=== PATIENT | female | born 1970 | race Caucasian/White ===

== ENCOUNTER 2017-12-26 11:00 | Observation (INO) | payer MEDICAID, SELFPAY ==
--- NOTE | 2017-12-23 11:44 | EKG12_ITS ---
Test Reason : PRE OP Blood Pressure : / mmHG Vent. Rate : 091 BPM Atrial Rate : 091 BPM P-R Int : 164 ms QRS Dur : 080 ms QT Int : 368 ms P-R-T Axes : 056 -15 030 degrees QTc Int : 452 ms Normal sinus rhythm Cannot rule out Anterior infarct , age undetermined Inferior NC, age undetermined, cannot be excluded Abnormal ECG Confirmed by TIMOTHY HARRELL ([id number]), website/blog editor BRINA CUNNINGHAM ([id number]) on 12/24/2017 9:43:17 AM Referred By: Noe Motley Confirmed By:TIMOTHY HARRELL
[2017-12-23 12:31] LABS: Hematocrit 46.2 % (37-47); Hemoglobin 15.9 g/dl (12.0-15.0); Mean Corp Hgb Conc 34.4 g/gl (32-36); Mean Corpuscular Volume 84.3 fL (81-99); Mean Platelet Vol. 11.2 fl (6.2-12.0); Platelet Count 325 K/mm3 (150-450); RBC Distribution Width CV 13.5 % (11.6-14.6); RBC Distribution Width SD 41.5 fl (35.1-43.9); Red Blood Count 5.48 M/mm3 (4.2-5.4); White Blood Count 8.4 K/mm3 (4.4-11.0)
[2017-12-23 12:34] LABS: Scan Indicated on CBC? Y/N NO
[2017-12-23 12:52] LABS: Anion Gap 7 (5-15); BUN 7 mg/dL (7-18); BUN/Creat Ratio 8.2 RATIO (10-20); Calcium,Total 8.9 mg/dL (8.5-10.1); Chloride 103 mmol/L (98-107); Creatinine, Serum 0.85 mg/dL (0.55-1.02); EST Glomerular Filtration Rate 76 mL/min (>60); Est Glom Filt Rate - Afr Amer 92 mL/min (>60); Glucose 177 mg/dL (74-106); Potassium 3.7 mmol/L (3.5-5.1); Sodium Level 138 mmol/L (136-145)
[2017-12-26] VITALS (13 sets, daily range): BP systolic 114–160; BP diastolic 70–110; PULSE 75–99; RESP 14–18; TEMP 36.2–37; O2SAT 93–99; BMI 40.6
--- NOTE | 2017-12-26 | THYROID_PTH ---
PATIENT: YIFAN NICHOLE LOC: MS3 U#:[id number] AGE/SX: 47/F ROOM: [facility] RE12/26/[address]: Dr. Noe Motley MD : 1970 BED: 1 DIS: 12/27/2017 SPEC #: [id number] RECD: 12/26/17 10:12 STATUS: KENNY LYNNE #: [id number] MARIBELL: 12/26/17 00:[address]: Noe Motley DEPT: SURGICAL PATHOLOGY RECD BY: Shahla Mcnamara ENTERED: 12/26/17 10:48 SP TYPE: THYROID OTHR DR: Out of [facility] Doctor Tissues: Thyroid gland, NOS Procedures: Frozen Section (charge) Frozen Section Add'l ([facility]) Surgery Specimen Level V Frozen (no charge) HEADER OPERATION: Thyroidectomy PRE-OP DIAGNOSIS: Multinodular goiter, dysphagia secondary to compression from thyroid TISSUE SUBMITTED: Thyroid FROZEN SECTION DIAGNOSIS Thyroid, total thyroidectomy: Multinodular goiter, larger nodule in the right lobe, cystic nodule. 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 Right thyroid lobe, cystic colloid nodule (4 cm in greatest dimension). Multinodular goiter with focal adenomatoid nodules. Four out of four lymph node, negative for metastatic carcinoma. Unremarkable parathyroid tissue. See cancer summary in the comment section. SJ:diego 12/30/17 COMMENT THYROID CANCER SUMMARY: Procedure ? total thyroidectomy Received - fresh Specimen integrity ? in two pieces Specimen size ? right lobe 5 x 4 x 4 cm, left lobe 6 x 4 x 1.5 cm, isthmus 3.5 x 2.5 x 1 cm Specimen weight ? 37.3 gm Tumor focality - unifocal Tumor laterality ? left lobe Tumor size ? 0.2 x 0.2 cm (measured microscopically) Histologic type ? papillary carcinoma Variant - Microcarcinoma Architecture ? follicular Cytomorphology - classical Margins ? margin uninvolved by invasive carcinoma. The tumor is<0.1 cm away from the closest anterior margin. Tumor capsule ? none identified Tumor capsular invasion ? not applicable Lymph-Vascular invasion ? not identified Perineural invasion ? not seen Extrathyroidal extension ? not seen Regional lymph nodes: Number of lymph nodes examined - 4 Number involved - 0 Distant metastasis ? not applicable Additional pathologic findings ? - multinodular goiter with adenomatoid nodules - right thyroid lobe cystic colloid nodule (4 cm in greatest dimension). - unremarkable parathyroid tissue (slide # 5, 11 &, 15). Ancillary studies ? please see IHC ([id number]) Clinical history ? multinodular goiter PATHOLOGIC STAGE: pT1a pN0 Mx The above summary is in compliance with [employer] (CAP) Cancer Protocols Checklist and [place] Joint Committee on Cancer (AJCC), Staging Manual, 7th Ed. Immunohistochemistry ([id number]) supports the above diagnosis. This case is discussed with Dr. Motley on12/30/17. MICROSCOPIC DESCRIPTION Slides are reviewed. GROSS DESCRIPTION Received fresh for frozen section diagnosis labeled with the patient's name is a specimen designated thyroid. The specimen consists of a total thyroidectomy specimen weighing 37.3 gm and consists of right lobe and isthmus and separate left lobe. The right lobe measures 5 x 4 x 4 cm, isthmus measures 3.5 x 2.5 x 1 cm, and left lobe measures 6 x 4 x 1.5 cm. The right lobe shows a nodule measuring 4 x 3.5 x 3 cm. No external parathyroid tissue is identified. The specimen is inked as follows: right lobe anterior surface ? green, left lobe anterior surface ? blue, isthmus anterior surface ? yellow, posterior surface of right lobe, left lobe and isthmus black. Serial sections of the right lobe reveal the nodule consists of entirely cystic in nature and filled with hemorrhagic fluid. Sections of the left lobe reveal a nodule measuring 0.5 cm in greatest dimension. Sections of the isthmus do not reveal any obvious mass lesion. Fish Peddler sections from right lobe cystic nodule and left lobe nodule are submitted for frozen section diagnosis. Fish Peddler sections are submitted as follows: 1 ? frozen section, smaller nodule in the left lobe, 2 ? frozen section, largest cystic nodule in the right lobe, 3-5 ? right lobe (entirely submitted), 6?&?7 ? isthmus, 812 ? left lobe. / SJ: 12/26/17 The rest of the specimen is submitted in seven more cassettes as follows: 13-15 ? isthmus, 1619 ? left lobe. / SJ: 12/29/17 TC:0 CPT: 47731, 86471, 93348
--- NOTE | 2017-12-26 | IMM_PTH ---
PATIENT: YIFAN NICHOLE LOC: MS3 U#:[id number] AGE/SX: 47/F ROOM: [facility] [place] RE12/26/[address]: Dr. Noe Motley MD : 1970 BED: 1 DIS: 12/27/2017 SPEC #: [id number] RECD: 12/29/17 13:35 STATUS: KENNY REQ #: [id number] MARIBELL: 12/26/17 00:[address]: Noe Motley DEPT: IMMUNOHISTOCHEMISTRY RECD BY: Shahla Mcnamara ENTERED: 12/29/17 13:37 SP TYPE: IMMUNO OTHR DR: Out of [facility] Doctor Tissues: Thyroid gland, NOS Procedures: CK19 (initial) CD56 (add) GAL-3 (add) HBME (add) PHYSICIAN & INSTITUTION [place] [phone] SPECIMEN INFORMATION: Tissue Source: Thyroid Clinical Info: Multinodular goiter, dysphagia secondary to compression from thyroid Specimen Number: [id number] #9 CPT code: 84472, 61328 x3 METHODOLOGY: Deparaffinized sections of prefer/formalin-fixed tissue or PAP/DQ stained slides are incubated with monoclonal/polyclonal antibodies/oligonucleotide probes. Localization is made via biotin free immunoperoxidase method. Appropriate controls are performed and reacted as expected. Results on target cell population are indicated in the following table: RESULTS: ANTIBODY / CLONE RESULT Block 9 CK19 (A53-B/A2.26) positive CD56 (123C3.D5) negative HBME1 (HBME-1) positive GAL3 (9C4) positive These tests were developed and their performance characteristics determined by [facility]. They may not have been cleared or approved by the U.S. Food and Drug Administration. The FDA has determined that such clearance or approval is not necessary. INTERPRETATION: Thyroid, total thyroidectomy: Consistent with papillary thyroid microcarcinoma. YVES:diego 12/30/17
[2017-12-26 05:52] LABS: Internal QC Validated? YES +Cl - CLEAR BKGD; Pregnancy, Urine Negative Negative
[2017-12-26 06:11] LABS: Bedside Glucose 129 mg/dL (70-110)
--- NOTE | 2017-12-26 10:35 | PCM.OPRPT ---
Problem List (1) Multinodular goiter Status: Chronic Report of Operation Date of Procedure: 12/26/17 Pre-Operative Diagnosis: Multinodular goiter Post-Operative Diagnosis: same Surgery/Procedure Performed:: Total thyroidectomy Description of Surgical Findings:: Procedure went as follows: The patient was identified in the preoperative holding and brought to the operating room, placed under general anesthesia and intubated. The neck was then prepped and draped in usual sterile fashion and the planned skin incision was marked 2 finger breadths above the sternal notch with a marking pen. The incisional line was then injected with 1% lidocaine with 100,000 epinephrine for a total of 6 cc. After allowing for vasoconstriction, a 15 blade scalpel was used to make an incision 8 cm in length through the skin and subcutaneous tissues and platysma. A subplatysmal flap was then elevated superiorly and inferiorly to allow placement of the self-retaining thyroid retractor. The strap muscles were then divided in the midline and beginning on the left side the thyroid lobe dissected in a sub-capsular fashion. The inferior, middle, and superior thyroid vessels were individually clamped and ligated with a combination of 3-0 silk sutures and vascular clips. The parathyroid glands were identified along the inferior vascular pedicle and preserved the recurrent laryngeal nerve was also identified and followed to its nerve entry point and the thyroid gland dissected free of its attachments to the trachea at Broyle's ligament. This was then transected at the isthmus and sent for pathologic evaluation. The right lobe was then similarly dissected free and sent as specimen. The recurrent laryngeal nerve as then stimulated bilaterally and function confirmed. #7 flat ZEENAT drains were then placed through separate stab incisions and secured with 3-4 silk sutures. The strap muscles were then reapproximated in the midline with a running 3-0 Vicryl suture and the platysma and subcutaneous tinnue closed with interrupted sutures. A running subcuticular stitch of 5-0 Monocryl was then used to close the skin followed by steri-strips. Type of Anesthesia:: General Anesthesiologist: Lang Paiz Special Medications: none Specimen's removed: total thyroid Drains: #7 flat ZEENAT Estimated Blood Loss (mL): 50 mL Fluids Replaced: 1000 mL Grafts/Implants Used: none - Complications none - Admit VTE Documentation VTE Present on Admission: No VTE Mechan Device Prophylaxis: SCD's VTE Pharm Prophylaxis ordered?: No
--- NOTE | 2017-12-26 10:43 | OP.PCM_ITS ---
Problem List (1) Multinodular goiter Status: Chronic Report of Operation Date of Procedure: 12/26/17 Pre-Operative Diagnosis: Multinodular goiter Post-Operative Diagnosis: same Surgery/Procedure Performed:: Total thyroidectomy Description of Surgical Findings:: Procedure went as follows: The patient was identified in the preoperative holding and brought to the operating room, placed under general anesthesia and intubated. The neck was then prepped and draped in usual sterile fashion and the planned skin incision was marked 2 finger breadths above the sternal notch with a marking pen. The incisional line was then injected with 1% lidocaine with 100,000 epinephrine for a total of 6 cc. After allowing for vasoconstriction, a 15 blade scalpel was used to make an incision 8 cm in length through the skin and subcutaneous tissues and platysma. A subplatysmal flap was then elevated superiorly and inferiorly to allow placement of the self- retaining thyroid retractor. The strap muscles were then divided in the midline and beginning on the left side the thyroid lobe dissected in a sub- capsular fashion. The inferior, middle, and superior thyroid vessels were individually clamped and ligated with a combination of 3-0 silk sutures and vascular clips. The parathyroid glands were identified along the inferior vascular pedicle and preserved the recurrent laryngeal nerve was also identified and followed to its nerve entry point and the thyroid gland dissected free of its attachments to the trachea at Broyle's ligament. This was then transected at the isthmus and sent for pathologic evaluation. The right lobe was then similarly dissected free and sent as specimen. The recurrent laryngeal nerve as then stimulated bilaterally and function confirmed. #7 flat ZEENAT drains were then placed through separate stab incisions and secured with 3-4 silk sutures. The strap muscles were then reapproximated in the midline with a running 3-0 Vicryl suture and the platysma and subcutaneous tinnue closed with interrupted sutures. A running subcuticular stitch of 5-0 Monocryl was then used to close the skin followed by steri-strips. Type of Anesthesia:: General Anesthesiologist: Lang Paiz Special Medications: none Specimen's removed: total thyroid Drains: #7 flat ZEENAT Estimated Blood Loss (mL): 50 mL Fluids Replaced: 1000 mL Grafts/Implants Used: none - Complications none - Admit VTE Documentation VTE Present on Admission: No VTE Mechan Device Prophylaxis: SCD's VTE Pharm Prophylaxis ordered?: No
[2017-12-26 10:55] LABS: Bedside Glucose 132 mg/dL (70-110)
[2017-12-26 11:17] LABS: Calcium,Total 8.6 mg/dL (8.5-10.1)
[2017-12-26] MEDS: Ibuprofen 400 MG Tablet PO ×3 (12:20→21:48)
[2017-12-26 13:01] LABS: Bedside Glucose 170 mg/dL (70-110)
[2017-12-26] MEDS: HYDROcodone Bitartrate/Apap 5/325 Tablet PO ×2 (14:32→20:35)
[2017-12-26] MEDS: Montelukast 10 MG Tablet PO (16:30)
[2017-12-26] MEDS: Folic Acid 1 MG Tablet PO (16:31)
[2017-12-26] MEDS: Gabapentin 300 MG Capsule PO (16:31)
[2017-12-26] MEDS: busPIRone 15 MG TABLET PO (16:31)
[2017-12-26] MEDS: Venlafaxine XR 75 MG Capsule PO (16:31)
[2017-12-26 17:00] LABS: Bedside Glucose 302 mg/dL (70-110)
[2017-12-26] MEDS: Budesonide Respules 0.5 MG/2 ML AMPUL.NEB. INHALATION (19:35)
[2017-12-26] MEDS: Albuterol 2.5 MG/3 ML VIAL.NEB. INHALATION (19:35)
[2017-12-26] MEDS: clonazePAM 1 MG Tablet 2 MG PO (21:48)
[2017-12-26] MEDS: Atorvastatin Calcium 10 MG Tablet 5 MG PO (21:48)
[2017-12-26] MEDS: Lisinopril 2.5 MG Tablet PO (21:49)
[2017-12-27] MEDS: Acetaminophen 325 MG Tablet 650 MG PO (00:13)
[2017-12-27] MEDS: 0.9% NaCl Peripheral Flush Adult/Peds IV (00:14)
[2017-12-27 00:30] LABS: Bedside Glucose 232 mg/dL (70-110)
[2017-12-27 02:30] VITALS: BP 129/77; PULSE 75; RESP 18; TEMP 36.4; O2SAT 96
[2017-12-27] MEDS: HYDROcodone Bitartrate/Apap 5/325 Tablet PO (02:47)
[2017-12-27 02:55] VITALS: PULSE 75
[2017-12-27 06:51] VITALS: PULSE 86; RESP 18; O2SAT 94
[2017-12-27] MEDS: Budesonide Respules 0.5 MG/2 ML AMPUL.NEB. INHALATION (06:51)
[2017-12-27] MEDS: Albuterol 2.5 MG/3 ML VIAL.NEB. INHALATION (06:51)
[2017-12-27] MEDS: Gabapentin 300 MG Capsule PO (07:28)
[2017-12-27] MEDS: Ibuprofen 400 MG Tablet PO (07:28)
[2017-12-27] MEDS: Folic Acid 1 MG Tablet PO (07:28)
[2017-12-27 07:31] LABS: Bedside Glucose 143 mg/dL (70-110)
[2017-12-27 08:56] LABS: Calcium,Total 7.8 mg/dL (8.5-10.1)
--- NOTE | 2017-12-27 09:39 | PCM.DC ---
- Discharge Diagnoses Current Active Problems: Current Active and Chronic Problems Multinodular goiter (Chronic) You will use the following diet at home:: Calorie/Carbohydrate Controlled (specify 1200, 1400, etc) - 2000 calorie Your food should be the consistency of: Regular Discharge Activity: Return to Normal Activity, May Shower Call your doctor if your incision/area has: Increased Redness, Swelling at the incision site Call your doctor if you observe: Fever of 101 or Higher, Uncontrolled pain Suture Line Care: Avoid Pulling/Pushing Cleanse incision/area with: Soap & Water Allergies/Adverse Reactions: Allergies sitagliptin [From Januvia] Allergy (Verified 12/18/17 13:05) Angioedema Sulfa (Sulfonamide Antibiotics) Allergy (Verified 12/26/17 12:01) Hives sulfamethoxazole [From Bactrim] Allergy (Verified 12/18/17 13:05) Hives trimethoprim [From Bactrim] Allergy (Verified 12/18/17 13:05) Hives Medications to take at Discharge Albuterol Inhaler [Ventolin Hfa] 1 - 2 puff INHALATION Q6H PRN PRN 12/18/17 Clonazepam [Klonopin] 2 mg PO BID 12/18/17 Desvenlafaxine Succinate [Desvenlafaxine Succinate ER] 100 mg PO DAILY 12/18/17 Dulaglutide [Trulicity] 0.75 mg SQ QWEEK 12/18/17 Fluticasone/Vilanterol [Breo Ellipta 200-25 Mcg INH] 1 puff INHALATION DAILY 12/18/17 Folic Acid 1 mg PO DAILY@0800 12/18/17 Gabapentin [Neurontin] 300 mg PO TID 12/18/17 Ibuprofen 800 mg PO PRN PRN 12/18/17 Insulin Aspart [Novolog Flexpen] See Protocol SC TIDCM 12/18/17 Insulin Glargine,Hum.rec.anlog [Basaglar Kwikpen U-100] 70 unit SQ QHS 12/18/17 Ketotifen Fumarate 1 drop EACH EYE PRN PRN 12/18/17 Lisinopril [Zestril] 2.5 mg PO QHS 12/18/17 Montelukast [Singulair] 10 mg PO DAILY 12/18/17 Ondansetron HCl [Zofran] 8 mg PO PRN PRN 12/18/17 Ranitidine [Zantac] 150 mg PO DAILY 12/18/17 Simvastatin [Zocor] 10 mg PO QHS 12/18/17 busPIRone [Buspar] 15 mg PO DAILY 12/18/17 Primary Care Physician: Shailesh Doctor,Out of [Primary Care Provider] - Please Follow Up With: Noe Motley MD When: 2 weeks
--- NOTE | 2017-12-27 09:43 | DCINST_ITS ---
- Discharge Diagnoses Current Active Problems: Current Active and Chronic Problems Multinodular goiter (Chronic) You will use the following diet at home:: Calorie/Carbohydrate Controlled ( specify 1200, 1400, etc) - 2000 calorie Your food should be the consistency of: Regular Discharge Activity: Return to Normal Activity, May Shower Call your doctor if your incision/area has: Increased Redness, Swelling at the incision site Call your doctor if you observe: Fever of 101 or Higher, Uncontrolled pain Suture Line Care: Avoid Pulling/Pushing Cleanse incision/area with: Soap & Water Allergies/Adverse Reactions: Allergies sitagliptin [From Januvia] Allergy (Verified 12/18/17 13:05) Angioedema Sulfa (Sulfonamide Antibiotics) Allergy (Verified 12/26/17 12:01) Hives sulfamethoxazole [From Bactrim] Allergy (Verified 12/18/17 13:05) Hives trimethoprim [From Bactrim] Allergy (Verified 12/18/17 13:05) Hives Medications to take at Discharge Albuterol Inhaler [Ventolin Hfa] 1 - 2 puff INHALATION Q6H PRN PRN 12/18/17 Clonazepam [Klonopin] 2 mg PO BID 12/18/17 Desvenlafaxine Succinate [Desvenlafaxine Succinate ER] 100 mg PO DAILY 12/18/17 Dulaglutide [Trulicity] 0.75 mg SQ QWEEK 12/18/17 Fluticasone/Vilanterol [Breo Ellipta 200-25 Mcg INH] 1 puff INHALATION DAILY Folic Acid 1 mg PO DAILY@0800 12/18/17 Gabapentin [Neurontin] 300 mg PO TID 12/18/17 Ibuprofen 800 mg PO PRN PRN 12/18/17 Insulin Aspart [Novolog Flexpen] See Protocol SC TIDCM 12/18/17 Insulin Glargine,Hum.rec.anlog [Basaglar Kwikpen U-100] 70 unit SQ QHS 12/18/17 Ketotifen Fumarate 1 drop EACH EYE PRN PRN 12/18/17 Lisinopril [Zestril] 2.5 mg PO QHS 12/18/17 Montelukast [Singulair] 10 mg PO DAILY 12/18/17 Ondansetron HCl [Zofran] 8 mg PO PRN PRN 12/18/17 Ranitidine [Zantac] 150 mg PO DAILY 12/18/17 Simvastatin [Zocor] 10 mg PO QHS 12/18/17 busPIRone [Buspar] 15 mg PO DAILY 12/18/17 Primary Care Physician: Shailesh Doctor,Out of [Primary Care Provider] - Please Follow Up With: Noe Motley MD When: 2 weeks
--- NOTE | 2017-12-27 09:47 | PN.SURG_ITS ---
Subjective: Machelle reports that she is feeling well this morning and denies any perioral numbness or tingling muscle cramping or tightness. She does report sore throat which is improved since yesterday and responding well to the [place]. She reports that her swallowing is much improved and feels relief from removal of her large nodular goiter. Objective: She appears well this morning is alert and cooperative with normal voicing. There is no wheezing or stridor. Neck incision is clean and intact with minimal drain output. Drains removed at the bedside. - Physical Exam General: Alert, Oriented x3 HEENT: Atraumatic, Normocephalic Oral: Moist Mucosa Neck: Supple, - - incision dry, intact Neurological: - - negative [place]ek's sign Psych/Mental Status: Normal Affect, Alert and oriented to time, place, person, mood and affect Vital Signs Temp Pulse Resp BP Pulse Ox 97.6 F L 86 18 129/77 H 94 12/27/17 02:30 12/27/17 06:51 12/27/17 06:51 12/27/17 02:30 12/27/17 06:51 Oxygen Delivery Method Room Air Weight: 112.5 kg Body Mass Index (BMI) 40.6 Finger Stick Blood Glucose 132 Intake and Output for Last 24 Hours 12/25/17 12/26/17 12/27/17 23:59 23:59 23:59 Intake Total 2997 / 2997 1595 / 1595 Output Total 1131 / 1131 732 / 732 Balance 1866 / 1866 863 / 863 Laboratory Tests Past 24 Hrs 12/26/17 12/27/17 11:00 08:05 Calcium 8.6 7.8 L POC Glucose 12/27/17 12/26/17 12/26/17 07:24 21:51 16:35 POC Glucose 143 H 232 H 302 H 12/26/17 12/26/17 12:39 10:50 POC Glucose 170 H 132 H Medical Necessity - Tobacco Use Smoking Status: Never smoker Tobacco Use: Secondhand Assessment/Plan Erica is doing well after total thyroidectomy for multinodular goiter with compressive symptoms. We will start her on levothyroxine 100 mcg daily and instructions on the taking of this medication separate from food and other medications is reviewed. I have advised her on the signs of low calcium of which she is currently asymptomatic. Oral calcium supplementation with anticipation of recovery of function given the visualization of the parathyroids and their preservation during surgery is anticipated. We will have her recheck her calcium level on Friday and she will call me should she develop any worrisome symptoms over the remainder of the weekend. Her drains are removed at bedside today and she is planned for discharge to home.
[2017-12-27 10:06] VITALS: BP 134/76; PULSE 100; RESP 18; TEMP 36.9; O2SAT 94
== END 2017-12-27 10:17 | disposition home or self-care (01) ==
LOC: SDC 12-29 09:35 → MS3 12-29 09:35
PROVIDERS: Anesthesiology; Admitting Provider Otolaryngology; Visit Provider Otolaryngology
PROC: (CPT 60240; principal; 2017-12-26 07:55)
DX: E04.2 Nontoxic multinodular goiter (principal); R13.19 Other dysphagia; E11.9 Type 2 diabetes mellitus without complications; E78.00 Pure hypercholesterolemia, unspecified; K21.9 Gastro-esophageal reflux disease without esophagitis; Z79.4 Long term (current) use of insulin; Z79.899 Other long term (current) drug therapy; J45.909 Unspecified asthma, uncomplicated; G47.30 Sleep apnea, unspecified; Z79.51 Long term (current) use of inhaled steroids
CPT/HCPCS: 60240; 36415; 80048; 81025; 82310; 82962; 83036; 85027; 88307; 88331; 88332; 88341; 88342; 93005; 94640; 99218; J7120; A4216; G0378; G0379

== ENCOUNTER → 2018-01-22 11:03 | Outpatient (CLI) | payer MEDICAID, SELFPAY ==
--- NOTE | 2018-01-22 11:05 | ECHOCS_ITS ---
Reason For Study: CHEST PAIN Procedure This was a 2D Doppler, Color Flow transthoracic echocardiogram. Exam performed in department. Left Ventricle Normal size and thickness. The estimated ejection fraction is 65 %. Stage 1 diastolic dysfunction. No regional wall motion abnormalities noted. Right Ventricle Normal size and thickness. Normal systolic function. Atria Normal left atrium. Normal right atrium. Probable patent foramen ovale. Positive bubble study. Mitral Valve The mitral valve is structurally normal. No prolapse or stenosis seen. Tricuspid Valve Normal tricuspid valve. Unable to estimate RV systolic pressure due to inadequate jet, pulmonary artery pressure probably normal. Aortic Valve Normal aortic valve. Trisinus/trileaflet aortic valve. Pulmonic Valve Normal pulmonic valve. Great Vessels Normal aortic root. Normal arch. Normal inferior vena cava. Inferior vena cava collapse with sniff. Pericardium/Pleural No pericardial effusion. Medication 22 gauge I.V. with prn adaptor inserted into right arm. Diluted definity 5ml given slow IV push to enhance endocardial definition. Performed a rapid injection of agitated mix of 9 cc saline and 1cc air to assess for atrial septal defect. MMode/2D Measurements & Calculations LVIDd: 3.9 cm IVSd: 1.0 cm Ao root diam: 3.0 cm LVIDs: 2.7 cm LVPWd: 1.0 cm LA dimension: 3.1 cm RVDd: 2.3 cm FS: 29.3 % LAV(MOD-bp): 35.9 ml LA A4 area: 13.4 cm2 RA A4 area: 8.6 cm2 LAV(MOD-bp) Indexed: 16.2 ml/m2 LAV(MOD-sp2): 44.1 ml LAV(MOD-sp4): 28.7 ml Time Measurements MV dec time: 0.29 sec Doppler Measurements & Calculations MV E max jose: 64.6 cm/sec Lat Peak E' Jose: 8.5 cm/sec Med Peak E' Jose: 8.3 cm/sec MV A max jose: 76.3 cm/sec E/E' lat: 7.6 E/E' med: 7.7 MV E/A: 0.85 Ao V2 max: 162.5 cm/sec LV V1 max: 94.1 cm/sec PA V2 max: 109.8 cm/sec Ao max P.6 mmHg LV V1 max P.5 mmHg Interpretation Summary The estimated ejection fraction is 65 %. Stage 1 diastolic dysfunction. Positive bubble study. Unable to estimate RV systolic pressure due to inadequate jet, pulmonary artery pressure probably normal. The study was technically difficult. Contrast injection was performed. There is no comparison study available. Ordering Physician: Carlos Charles Referring Physician: Carlos Charles Performed By: Ryann Austin RDCS
== END ==
PROVIDERS: Visit Provider Internal Medicine Cardiovascular Disease
DX: R06.00 Dyspnea, unspecified (principal); R07.9 Chest pain, unspecified; E66.01 Morbid (severe) obesity due to excess calories; R94.31 Abnormal electrocardiogram [ECG] [EKG]; E78.5 Hyperlipidemia, unspecified
CPT/HCPCS: 93306; Q9957; A4216; C8929

== ENCOUNTER → 2018-02-03 09:06 | Outpatient (CLI) | payer MEDICAID, SELFPAY ==
--- NOTE | 2018-02-03 09:07 | STE_ITS ---
Reason For Study: CHEST PAIN Stress Results Protocol: Dobutamine Maximum Predicted HR: 173 bpm Target HR: 147 bpm% Maximum Predicted HR: 90 % DurationHeart Rate Stage (mm:ss) (bpm) BPDos e Comment BASELINE 77 127/79 2 CC DEFINITY STAGE 1 3:08 10 3 133/7910.001/2 CC DEFINITY STAGE 2 2:41 15 5 166/9020.001/2 CC DEFINITY RECOVERY 96 147/80 2 CC DEFINITY Stress Duration: 5:49 mm:ss Maximum Stress HR: 155 bpm Baseline Echocardiogram Findings Stress Echo Wall motion Data Resting WMIntermediate WMStress WM Resting Wall Motion Wall Motion Int. Wall Motion Stress All segments Normal. All segments Hyperkinetic. All segments Hyperkinetic. Ejection Fraction 55 %. Ejection Fraction 65 %. Ejection Fraction 75 %. Stress Results Arrhythmias: isolated PVC during recovery Stopped secondary to: target heart rate achieved. EKG Data Baseline ECG: NSR. Peak pharmacologic ECG: no obvious ECG changes. Symptoms with Stress No c/o chest discomfort during pharmacologic infusion / recovery. Interpretation Summary The study was technically difficult. Contrast injection was performed. Negative (adequate) Dobutamine Stress Echocardiogram Ordering Physician: Carlos Charles Referring Physician: Carlos Charles Performed By: Marcy Cabrera RDCS
== END ==
PROVIDERS: Visit Provider Internal Medicine Cardiovascular Disease
DX: R06.00 Dyspnea, unspecified (principal); R07.9 Chest pain, unspecified; E66.01 Morbid (severe) obesity due to excess calories; R94.31 Abnormal electrocardiogram [ECG] [EKG]
CPT/HCPCS: 93017; 93350; J7030; Q9957; A4216

== ENCOUNTER → 2018-02-19 16:06 | Outpatient (CLI) | payer MEDICAID, SELFPAY ==
[2018-02-19 17:41] LABS: Free T3 2.5 pg/mL (2.18-3.98); Thyroid Stim Hormone (TSH) 5.22 uIU/mL (0.358-3.74)
== END ==
PROVIDERS: Visit Provider Nurse Practitioner
DX: E03.9 Hypothyroidism, unspecified (principal)
CPT/HCPCS: 36415; 84439; 84443; 84481

== ENCOUNTER → 2018-04-13 14:48 | Outpatient (CLI) | payer MEDICAID, SELFPAY ==
[2018-04-13 17:01] LABS: Thyroid Stim Hormone (TSH) 7.58 uIU/mL (0.358-3.74)
== END ==
PROVIDERS: Visit Provider Nurse Practitioner
DX: E03.9 Hypothyroidism, unspecified (principal)
CPT/HCPCS: 36415; 84439; 84443; 84481

== ENCOUNTER → 2018-05-05 14:49 | Outpatient (CLI) | payer MEDICAID, SELFPAY ==
[2018-05-05 17:09] LABS: Thyroid Stim Hormone (TSH) 2.49 uIU/mL (0.358-3.74)
== END ==
PROVIDERS: Visit Provider Otolaryngology
DX: E89.0 Postprocedural hypothyroidism (principal)
CPT/HCPCS: 36415; 84443

== ENCOUNTER → 2018-05-19 12:55 | Outpatient (CLI) | payer MEDICAID, SELFPAY ==
[2018-05-19 14:17] LABS: Thyroid Stim Hormone (TSH) 0.74 uIU/mL (0.358-3.74)
== END ==
PROVIDERS: Referring Provider Otolaryngology; Visit Provider Otolaryngology
DX: E89.0 Postprocedural hypothyroidism (principal)
CPT/HCPCS: 36415; 84443

== ENCOUNTER → 2019-04-14 13:49 | Outpatient (CLI) | payer MEDICARE, SELFPAY ==
[2019-04-14 12:55] VITALS: BMI 45.0
[2019-04-14 15:48] LABS: Absolute Lymphocyte Count 2.59 X10^3/uL (0.83-4.51); Basophil# 0.05 X10^3/uL; Basophil% 0.5 % (0-1); Eosinophils% 1.9 % (0-5); Hematocrit 45.7 % (37-47); Hemoglobin 14.8 g/dL (12.0-15.0); Lymphocyte # 2.59 X10^3/ul (4.0); Lymphocyte % 24.3 % (19-41); Mean Corp Hgb Conc 32.4 g/dL (32-36); Mean Corpuscular Hgb 28.4 pg (27.0-32.0); Mean Corpuscular Volume 87.5 fL (81-99); Mean Platelet Vol. 10.5 fl (6.2-12.0); Monocyte# 0.81 X10^3/uL; Monocyte% 7.6 % (0-10); NRBC Flagged by Analyzer 0 % (0-5); Neutrophil # 6.96 X10^3/uL (2.7-7.7); Neutrophil % 65.3 % (47-70); Platelet Count 313 K/mm3 (150-450); RBC Distribution Width CV 12.6 % (11.6-14.6); Red Blood Count 5.22 M/mm3 (4.2-5.4); White Blood Count 10.7 K/mm3 (4.4-11.0)
[2019-04-19 07:13] LABS: Alternaria tenuis <0.10 kU/L (Class 0); Ash, White <0.10 kU/L (Class 0); Aspergillus fumigatus <0.10 kU/L (Class 0); Bermuda Grass <0.10 kU/L (Class 0); Birch <0.10 kU/L (Class 0); Black Walnut 0.12 kU/L (Class 0/I); Cat Hair / Dander,Stand <0.10 kU/L (Class 0); Cedar, Mountain <0.10 kU/L (Class 0); Cladosporium herbarum <0.10 kU/L (Class 0); Cockroach, American <0.10 kU/L (Class 0); Cottonwood <0.10 kU/L (Class 0); D farinae Mite <0.10 kU/L (Class 0); D pteronyssinus <0.10 kU/L (Class 0); Dog Epithelia <0.10 kU/L (Class 0); Elm, American White <0.10 kU/L (Class 0); Immunoglobulin E 256 IU/mL (6-495); Maple/Box Elder <0.10 kU/L (Class 0); Mulberry, White <0.10 kU/L (Class 0); Oak, White <0.10 kU/L (Class 0); Pecan <0.10 kU/L (Class 0); Penicillium Notatum <0.10 kU/L (Class 0); Pigweed, Rough <0.10 kU/L (Class 0); Ragweed, Short/Common <0.10 kU/L (Class 0); Russian Thistle <0.10 kU/L (Class 0); Sheep Sorrel <0.10 kU/L (Class 0); Sycamore, American <0.10 kU/L (Class 0); Timothy Grass <0.10 kU/L (Class 0)
[2019-04-19 11:42] LABS: Immunoglobulin E 205 IU/mL (6-495); Mouse Urine <0.10 kU/L (Class 0)
== END ==
PROVIDERS: PCP Family Medicine; Referring Provider Internal Medicine Critical Care Medicine; Visit Provider Internal Medicine Critical Care Medicine
DX: J45.909 Unspecified asthma, uncomplicated (principal); E78.5 Hyperlipidemia, unspecified
CPT/HCPCS: 36415; 82785; 85025; 86003

== ENCOUNTER → 2020-01-28 09:15 | Outpatient (CLI) | payer MEDICARE, MEDICAID, SELFPAY ==
[2019-04-14 12:55] VITALS: BMI 45.0
[2020-01-24 07:52] VITALS: BMI 40.3
--- NOTE | 2020-01-28 09:17 | ECHOCS_ITS ---
Reason For Study: PHTN Procedure This was a 2D Doppler, Color Flow transthoracic echocardiogram. The study was technically difficult. Exam performed in department. Left Ventricle Normal size and thickness. The estimated ejection fraction is 65 %. Stage 1 diastolic dysfunction. No regional wall motion abnormalities noted. Right Ventricle Normal size and thickness. Normal systolic function. Atria Normal left atrium. Normal right atrium. Normal atrial septum. Mitral Valve The mitral valve is structurally normal. No prolapse or stenosis seen. Tricuspid Valve Normal tricuspid valve. Trivial tricuspid valve insufficiency. Right ventricular systolic pressure estimated to be 34 mmHg. Aortic Valve Normal aortic valve. Trisinus/trileaflet aortic valve. Pulmonic Valve Normal pulmonic valve. Great Vessels Normal aortic root. Normal arch. Normal inferior vena cava. Inferior vena cava collapse with sniff. Pericardium/Pleural No pericardial effusion. Medication 22 gauge I.V. with prn adaptor inserted into left arm. Diluted definity 3.0ml given slow IV push to enhance endocardial definition. MMode/2D Measurements & Calculations LVIDd: 4.7 cm IVSd: 0.60 cm Ao root diam: 3.6 cm LVIDs: 3.2 cm LVPWd: 0.83 cm RVDd: 3.2 cm FS: 30.5 % LAV(MOD-bp): 38.8 ml LA A4 area: 16.6 cm2 LA dimension(2D): 4.2 cm LAV(MOD-bp) Indexed: 17.6 ml/m2 LAV(MOD-sp2): 35.4 ml LAV(MOD-sp4): 38.7 ml RA A4 area: 12.7 cm2 Time Measurements MV dec time: 0.27 sec Doppler Measurements & Calculations MV E max jose: 74.4 cm/sec Lat Peak E' Jose: 7.7 cm/sec Med Peak E' Jose: 6.8 cm/sec MV A max jose: 91.4 cm/sec E/E' lat: 9.6 E/E' med: 10.9 MV E/A: 0.81 Ao V2 max: 159.0 cm/sec LV V1 max: 100.7 cm/sec TR max jose: 270.7 cm/sec Ao max P.1 mmHg LV V1 max P.1 mmHg TR max P.3 mmHg Interpretation Summary The estimated ejection fraction is 65 %. Stage 1 diastolic dysfunction. Trivial tricuspid valve insufficiency. Right ventricular systolic pressure estimated to be 34 mmHg. Compared to echo report dated 01/22/2018, no appreciable changes noted. Ordering Physician: Carlos Charles Referring Physician: Garth Weiner Performed By: Gunjan Alonzo, SNOW, RVT
== END ==
PROVIDERS: Referring Provider Internal Medicine Critical Care Medicine; Visit Provider Internal Medicine Critical Care Medicine
DX: J45.909 Unspecified asthma, uncomplicated (principal); G47.33 Obstructive sleep apnea (adult) (pediatric)
CPT/HCPCS: 93306; 94060; 94726; 94729; Q9957; A4216; C8929

== ENCOUNTER → 2020-02-18 21:09 | Outpatient (CLI) | payer MEDICARE, SELFPAY ==
[2019-10-07 09:56] VITALS: BMI 39.0
--- NOTE | 2020-01-28 13:23 | PFT ---
INTRODUCTION: The patient is a 49-year-old female that presents for pulmonary function studies secondary to a diagnosis of asthma. Respiratory therapy reports good patient effort. Bronchodilators were used during testing. INTERPRETATION: Forced expiration spirometry demonstrates no evidence of a large airways obstructive ventilatory defect. There was no significant response to aerosolized bronchodilators, based upon strict ATS criteria. Spirograms are of good quality and plateau normally. Body plethysmography was performed and reveals lung volumes to be within normal limits. Diffusing capacity by single breath CO is also within normal limits. IMPRESSION: Grossly normal pulmonary function studies.
== END ==
PROVIDERS: Referring Provider Internal Medicine Critical Care Medicine; Visit Provider Internal Medicine Critical Care Medicine
DX: G47.33 Obstructive sleep apnea (adult) (pediatric) (principal)
CPT/HCPCS: 95811

== ENCOUNTER → 2020-03-02 14:05 | Outpatient (CLI) | payer MEDICARE, SELFPAY ==
[2020-01-24 07:52] VITALS: BMI 40.3
== END ==
PROVIDERS: Visit Provider Nurse Practitioner Acute Care
DX: G47.33 Obstructive sleep apnea (adult) (pediatric) (principal)

== ENCOUNTER → 2020-03-03 13:27 | Outpatient (CLI) | payer MEDICARE, MEDICAID, SELFPAY ==
[2020-01-24 07:52] VITALS: BMI 40.3
== END ==
PROVIDERS: Visit Provider Nurse Practitioner Acute Care
DX: R69 Illness, unspecified (principal)

== ENCOUNTER → 2023-07-25 | Outpatient (CLI) | payer MEDICARE, MEDICAID, SELFPAY ==
--- NOTE | 2023-07-27 08:25 | PFT ---
INTRODUCTION: The patient is a 53-year-old female who presents for pulmonary function studies secondary to a diagnosis of shortness of breath. Respiratory therapy reported good patient effort. Bronchodilators were used during testing. INTERPRETATION: Forced expiration spirometry demonstrates no evidence of a large airways obstructive ventilatory defect. There was a significant response to aerosolized bronchodilators, based upon change noted in FVC. Spirograms are of good quality and plateau normally. Body plethysmography was performed and revealed a decreased TLC to 3.92 L, 79% of predicted, indicative of a mild restrictive ventilatory impairment. Diffusing capacity by single breath CO was within normal limits. IMPRESSION: Mild restrictive ventilatory impairment with significant bronchodilator response.
== END | disposition home or self-care (01) ==
PROVIDERS: Referring Provider Nurse Practitioner Acute Care; Visit Provider Nurse Practitioner Acute Care
DX: R06.00 Dyspnea, unspecified (principal)
CPT/HCPCS: 94060; 94726; 94729

== ENCOUNTER → 2023-09-11 | Outpatient (CLI) | payer MEDICARE, MEDICAID, SELFPAY ==
[2023-09-11 14:00] VITALS: PULSE 105; PULSE 112; PULSE 122; PULSE 125; PULSE 126; PULSE 131; PULSE 94; O2SAT 95; O2SAT 96; O2SAT 97
--- OUTSIDE RECORDS SUMMARY | 2023-09-11 14:24 | XMS RPT_ITS | CCD ---
Author Name Unknown Address [address] [place] [address] Organization [facility] Care Team Providers Care Car Cleaning Supervisor Name Role Phone EHREDT, TESSA Unavailable Unavailable EHREDT, TESSA Unavailable Unavailable ANDREAS PERRY Unavailable Unavailable JOSE M MALDONADO Unavailable Unavailable EHREDT, TESSA Unavailable Unavailable Duran COLE, Meaghan Wilhelm Primary Care Provider Meaghan Doan MD Primary Care Provider Francoise Scott Primary Care Provider [phone] [facility] Francoise Scott Primary Care Provider BLADIMIR BEAULIEU Referring Unavailable MEAGHAN DOAN Primary Care Unavailab BLADIMIR Peguero Referring Unavailable MEAGHAN DOAN Primary Care Unavailab SAUL Aguilar Attending Unavailmaren e BLADIMIR BEAULIEU Referring Unavailable LENGYELFRANCOISE Primary Care UnavailBLADIMIR Jonas Referring Unavailable LENGYFRANCOISE MC AG Primary Care Unavaila BLADIMIR Ny Referring Unavailable AJITHGYFRANCOISE MCA Primary Care UnavailBLADIMIR Jonas Referring Unavailable LENGYLICO, FRANCOISE ANGELA Primary Care Unavaila BLADIMIR Ny Referring Unavailable LENGYLICO, FRANCOISE AG Primary Care Unavaila shen BAH DPM, SANTIAGO Attending Unavailable [facility] Unav ailable BRITTNEE NAJERA, DR ROBERTO Attending Unavailable [employer] MERCERIZER BACK TENDER, [facility] Care Unav ailable BAH DPM, SANTIAGO Attending Unavailable [employer] MERCERIZER BACK TENDER, [facility] Care Unav ailable SHADIASANDY ODILON WOO Consulting Unavail able BARB COLE, TONY Consulting Unavailable BAH DPM, SANTIAGO Attending Unavailable [employer] MERCERIZER BACK TENDER, [facility] Unav ailable TRACYDAVIANKortney DPM, DR ROBERTO Attending Unavailable [employer] MERCERIZER BACK TENDER, [facility] Unav ailable ELINA COLE, BURTON Najera Consulting Unavailable BARB COLE, TONY Consulting Unavailable Sonia COLE, [facility] Provider GUILLAUME STANLEY Attending Unavailable LENGYEL, [facility] Unavaila ble LENGYEL, [facility] Unavaila ble IVON PAGE Attending Unavailable LENGY, [facility] Unavaila ble FOLK, FRANCIE [facility] JUAN CUNNINGHAM [facility] Un[facility] JUAN CUNNINGHAM Referring Unavailable FOLK, FRANCIE Referring Unavailable LENGYEL, [facility] Unavaila ble FOLK, FRANCIE Attending Unavailable VAL CORBETT [facility] Un[facility] REY FIGUEROA Referring Unavaila ble FOLK, FRANCIE Attending Unavailable LENGYEL, [facility] Unavaila ble FOLK, FRANCIE Referring Unavailable LENGYEL, [facility] Unavaila ble LENGYEL, [facility] Unavaila ble JUAN CUNNINGHAM Referring Unavailable LENGYEL, [facility] Unavaila ble FOLK, FRANCIE Attending Unavailable FOLK, FRANCIE Referring [facility] LENGYEL, [facility] Unavaila ble JUAN CUNNINGHAM Referring Unavailable GUILLAUME STANLEY Referring Unavailable LENGYEL, [facility] Unavaila ble Allergies Allergy Classification Reported Allergen(s) Allergy Type Date of Onset Reaction(s) Facility (1 source) SITagliptin Drug Allergy [facility] Repository (20 sources) ARIPiprazole; Translations: [ARIPIPRAZOLE] Drug Allergy 08-30-19 Other: See Comments [facility] (20 sources) Citalopram; Translations: [citalopram] Drug Allergy 08-30-19 Other: See Comments [facility] (20 sources) Seasonal allergy; Translations: [SEASONAL ALLERGIES] Allergy to substance 01-22-20 Intolerance [facility] (20 sources) SITagliptin; Translations: [sitagliptin] Drug Allergy 01-22-20 Unknown [facility] (20 sources) Sulfamethoxazole / Trimethoprim; Translations: [sulfamethoxazole-t rimethoprim] Drug Allergy 01-22-20 Unknown [facility] (20 sources) Sulfonamides (Antibiotic); Translations: [sulfa drugs] Drug Intolerance 08-30-19 Rash [facility] (20 sources) Trimethoprim; Translations: [trimethoprim] Drug Allergy 07-04-20 Rash, Hives, Other: See Comments [facility] (3 sources) ARIPiprazole lauroxil; Translations: [aripiprazole] Drug Allergy Nausea and vomiting, Disoriented [facility] (3 sources) empagliflozin; Translations: [empagliflozin] Drug Allergy Infective vaginitis (disorder) [facility] Medications Current Medications Medication Drug Class(es) Dates Sig (Normalized) Sig (Original) Percocet (3 sources) Opioid Agonist Start: 09-13-2022 Percocet 325/5 Dose = 1 tab(s), Oral, q4h, PRN Pain, scale 4-6, 0 Refill(s), 117.9 Start Date: 09/13/22 Status: Ordered Completed/Discontinued Medications Medication Drug Class(es) Dates Sig (Normalized) Sig (Original) amoxicillin 875 mg oral tablet (6 sources) Penicillin-class Antibacterial Start: 12-12-2021 End: 03-28-2022 take 1 tablet by mouth twice daily amoxicillin (AMOXIL) 875 mg tablet take 1 tablet by mouth twice a day until finished 0 12/12/2021 03/28/2022 Discontinued (Other) Problems Active Problems Problem Classification Problem Date Documented Da te Episodic/Chronic Anxiety disorders (20 sources) Anxiety; Translations: [Anxiety disorder, unspecified] Onset: 09-23-2011 01-07-2022 Chronic Asthma (20 sources) Asthma, unspecified type, unspecified; Translations: [Asthma] Onset: 06-22-2012 01-07-2022 Chronic Blindness and vision defects (20 sources) Bilateral myopia of eyes; Translations: [Myopia, bilateral] Onset: 05-06-2022 Episodic Cancer of thyroid (20 sources) Papillary thyroid carcinoma; Translations: [Malignant neoplasm of thyroid gland] Onset: 01-21-2019 01-21-2019 Chronic Past or Other Problems Problem Classification Problem Date Documented Date Episodic/Chronic Abdominal pain (20 sources) Abdominal pain; Translations: [Unspecified abdominal pain] Onset: 01-07-2022 01-07-2022 Episodic Administrative/social admission (20 sources) Bereavement; Translations: [Disappearance and of family member] Onset: 01-31-2021 01-07-2022 Episodic Allergic reactions (20 sources) Environmental allergy; Translations: [Other allergy status, other than to drugs and biological substances] Onset: 11-24-2017 01-07-2022 Episodic Cardiac dysrhythmias (1 source) Tachycardia, unspecified; Translations: [TACHYCARDIA NOS] Onset: 03-16-2015 Episodic Conditions associated with dizziness or vertigo (20 sources) Acute labyrinthitis; Translations: [Labyrinthitis, unspecified ear] Onset: 10-09-2012 01-07-2022 Episodic Immunizations and screening for infectious disease (20 sources) Needs influenza immunization; Translations: [Encounter for immunization] Onset: 01-07-2022 01-07-2022 Episodic Lymphadenitis (20 sources) Axillary lymphadenopathy; Translations: [Localized enlarged lymph nodes] Onset: 01-07-2022 01-07-2022 Episodic Other aftercare (2 sources) Long-term (current) use of insulin; Translations: [Long-term (current) use of aspirin] Onset: 03-16-2015 Episodic Other aftercare (20 sources) Patient encounter status; Translations: [senior living (current) use of opiate analgesic] Onset: 03-16-2018 01-07-2022 Episodic Other aftercare (1 source) senior living (current) use of insulin; Translations: [Type 2 diabetes mellitus with hyperglycemia, with long-term current use of insulin (HCC)] Onset: 01-27-2022 Episodic Other connective tissue disease (2 sources) Pain in limb; Translations: [Synovitis and tenosynovitis, unspecified] Onset: 03-16-2015 Episodic Other connective tissue disease (20 sources) Iliotibial band friction syndrome; Translations: [Iliotibial band syndrome, unspecified leg] Onset: 05-21-2013 01-07-2022 Episodic Other connective tissue disease (20 sources) Pain in right arm; Translations: [Pain in right arm] Onset: 01-07-2022 01-07-2022 Episodic Other connective tissue disease (17 sources) History of arthrodesis of ankle; Translations: [Arthrodesis status] Onset: 10-29-2022 10-29-2022 Episodic Other connective tissue disease (1 source) Arthrodesis status; Translations: [Status post ankle fusion] Onset: 10-29-2022 Episodic Other connective tissue disease (1 source) Neuralgia and neuritis, unspecified; Translations: [Neuralgia and neuritis, unspecified] Onset: 03-06-2022 Episodic Other disorders of stomach and duodenum (20 sources) Indigestion; Translations: [Functional dyspepsia] Onset: 01-07-2022 01-07-2022 Episodic Other eye disorders (20 sources) Red eye; Translations: [Other specified disorders of eye and adnexa] Onset: 05-06-2022 Episodic Other lower respiratory disease (1 source) Hypoxemia; Translations: [HYPOXEMIA] Onset: 03-16-2015 Episodic Other nervous system disorders (2 sources) Abnormality of gait; Translations: [Other acute postoperative pain] Onset: 03-16-2015 Episodic Other nervous system disorders (19 sources) Finding related to ability to move; Translations: [Other abnormalities of gait and mobility] Onset: 10-29-2022 Episodic Other nervous system disorders (1 source) Other abnormalities of gait and mobility; Translations: [Other abnormalities of gait and mobility] Onset: 10-29-2022 Episodic Other non-traumatic joint disorders (17 sources) Pain of right ankle joint; Translations: [Pain in right ankle and joints of right foot] Onset: 03-16-2018 01-07-2022 Episodic Other non-traumatic joint disorders (20 sources) Pain in left knee; Translations: [Pain in joint, lower leg] Onset: 09-23-2011 01-07-2022 Episodic Other non-traumatic joint disorders (18 sources) Chronic ankle pain; Translations: [Pain in right ankle and joints of right foot] Onset: 03-16-2018 Episodic Other non-traumatic joint disorders (2 sources) Pain in right ankle and joints of right foot; Translations: [Chronic pain of right ankle] Onset: 02-12-2022 Episodic Other skin disorders (20 sources) Folliculitis; Translations: [Follicular disorder, unspecified] Onset: 06-22-2012 01-07-2022 Episodic Residual codes; unclassified (20 sources) Edema of lower extremity; Translations: [Localized edema] Onset: 01-07-2022 01-07-2022 Episodic Residual codes; unclassified (20 sources) Menopause present; Translations: [Asymptomatic menopausal state] Onset: 08-02-2020 01-07-2022 Episodic Residual codes; unclassified (11 sources) Noncompliance with therapeutic regimen; Translations: [Patient's noncompliance with other medical treatment and regimen] Onset: 04-02-2013 01-07-2022 Episodic Residual codes; unclassified (20 sources) Noncompliance with treatment; Translations: [Patient's noncompliance with other medical treatment and regimen] Onset: 04-02-2013 01-07-2022 Episodic Residual codes; unclassified (1 source) Localized edema; Translations: [Localized edema] Onset: 10-28-2022 Episodic Skin and subcutaneous tissue infections (20 sources) Carbuncle of skin and/or subcutaneous tissue; Translations: [Carbuncle of limb, unspecified] Onset: 04-02-2013 01-07-2022 Episodic Viral infection (20 sources) Herpes zoster; Translations: [Zoster without complications] Onset: 06-22-2012 01-07-2022 Episodic Results Test Name Value Interpretation Reference Range Facil ity Vital Signs Date Time Vital Sign Value Performing Clinician Dora almazan 07-24-2023 13:10-0500 Body height 164.5 cm Ivon Page APRN.CNP Work Phone: [facility] 07-24-2023 13:10-0500 Body weight 119.2 kg Ivon Page APRN.CNP Work Phone: [facility] 07-24-2023 13:10-0500 Diastolic blood pressure 76 mm[Hg] Ivon Hasenstaub CAR PACKER.PHOTO RETOUCHER Work Phone: [facility] 07-24-2023 13:10-0500 Heart rate 107 /min Ivon Ryantaub [employer] P[employer]ER[employer]PHOTO RETOUCHER Work Phone: [facility] 07-24-2023 13:10-0500 Systolic blood pressure 128 mm[Hg] Ivon Hasenstaub [employer] P[employer]ER.PHOTO RETOUCHER Work Phone: [facility] 07-23-2023 10:24-0500 Body height 165.1 cm Francie Folk [employer] P[employer]ER.PHOTO RETOUCHER Work Phone: [facility] 07-23-2023 10:24-0500 Body weight 119.84 kg Francie Folk [employer] P[employer]ER.PHOTO RETOUCHER Work Phone: [facility] 07-23-2023 10:24-0500 Diastolic blood pressure 84 mm[Hg] Francie Folk [employer] P[employer]ER.PHOTO RETOUCHER Work Phone: [facility] 07-23-2023 10:24-0500 Heart rate 76 /min Francie Folk [employer] PACKER.PHOTO RETOUCHER Work Phone: [facility] 07-23-2023 10:24-0500 SaO2% (BldA) [Mass fraction] 98 % Francie Folk [employer] P[employer]ER[employer]PHOTO RETOUCHER Work Phone: [facility] 07-23-2023 10:24-0500 Systolic blood pressure 123 mm[Hg] Francie Folk [employer] P[employer]ER.PHOTO RETOUCHER Work Phone: [facility] 07-02-2023 11:22-0500 Body height 165.1 cm Juan Cunningham MD Work Phone: [facility] 07-02-2023 11:22-0500 Body weight 115.21 kg Juan Cunningham MD Work Phone: [facility] 07-02-2023 11:22-0500 Diastolic blood pressure 86 mm[Hg] Juan Cunningham MD Work Phone: [facility] 07-02-2023 11:22-0500 Heart rate 90 /min Juan Cunningham MD Work Phone: [facility] 07-02-2023 11:22-0500 SaO2% (BldA) [Mass fraction] 98 % Juan Cunningham MD Work Phone: [facility] 07-02-2023 11:22-0500 Systolic blood pressure 123 mm[Hg] Juan Cunningham MD Work Phone: [facility] 04-16-2023 10:08-0400 Body height 165.1 cm Francie Folk [employer] P[employer]ER.PHOTO RETOUCHER Work Phone: [facility] 04-16-2023 10:08-0400 Body weight 120.75 kg Francie Folk [employer] PACKER.PHOTO RETOUCHER Work Phone: [facility] 04-16-2023 10:08-0400 Diastolic blood pressure 75 mm[Hg] Francie Folk [employer] PACKER.PHOTO RETOUCHER Work Phone: [facility] 04-16-2023 10:08-0400 Heart rate 83 /min Francie Folk [employer] P[employer]ER.PHOTO RETOUCHER Work Phone: [facility] 04-16-2023 10:08-0400 SaO2% (BldA) [Mass fraction] 95 % Francie Folk [employer] PACKER.PHOTO RETOUCHER Work Phone: [facility] 04-16-2023 10:08-0400 Systolic blood pressure 111 mm[Hg] Francie Folk [employer] PACKER.PHOTO RETOUCHER Work Phone: [facility] 10-14-2022 08:55-0500 Body height 165.1 cm Francie Folk [employer] PACKER.PHOTO RETOUCHER Work Phone: [facility] 10-14-2022 08:55-0500 Body weight 120.2 kg Francie Folk [employer] PACKER.PHOTO RETOUCHER Work Phone: [facility] 10-14-2022 08:55-0500 Diastolic blood pressure 77 mm[Hg] Francie Folk [employer] PACKER.PHOTO RETOUCHER Work Phone: [facility] 10-14-2022 08:55-0500 Heart rate 100 /min Francie Folk [employer] PACKER.PHOTO RETOUCHER Work Phone: [facility] 10-14-2022 08:55-0500 SaO2% (BldA) [Mass fraction] 95 % Francie Folk [employer] PACKER.PHOTO RETOUCHER Work Phone: [facility] 10-14-2022 08:55-0500 Systolic blood pressure 112 mm[Hg] [facility].PHOTO RETOUCHER Work Phone: [facility] 09-13-2022 13:40-0500 Body temperature 97.34 [degF] SANTIAGO BAH DPM [facility] 09-13-2022 13:40-0500 Diastolic Blood Pressure Non-Invasive 69 1 SANTIAGO BAH DPM [facility] 09-13-2022 13:40-0500 Heart rate 80 /min SANTIAGO BAH DPM [facility] 09-13-2022 13:40-0500 Reason For Taking VItal Signs SANTIAGO BAH DPM [facility] 09-13-2022 13:40-0500 Respiratory rate 14 /min SANTIAGO BAH DPM [facility] 09-13-2022 13:40-0500 Systolic Blood Pressure Non-Invasive 117 1 SANTIAGO BAH DPM [facility] 09-13-2022 13:18-0500 Body temperature 97.16 [degF] SANTIAGO BAH DPM [facility] 09-13-2022 13:18-0500 Diastolic Blood Pressure Non-Invasive 65 1 SANTIAGO BAH DPM [facility] 09-13-2022 13:18-0500 Heart rate 82 /min SANTIAGO MOSS DPM [facility] 09-13-2022 13:18-0500 Respiratory rate 16 /min SANTIAGO MOSS DPM [facility] 09-13-2022 13:18-0500 Systolic Blood Pressure Non-Invasive 108 1 SANTIAGO BAH DPM [facility] 09-13-2022 13:06-0500 Diastolic Blood Pressure Non-Invasive 63 1 SANTIAGO BAH DPM [facility] 09-13-2022 13:06-0500 Heart rate 80 /min SANTIAGO BAH DPM [facility] 09-13-2022 13:06-0500 Respiratory rate 16 /min SANTIAGO BAH DPM [address] [place] [address] 09-13-2022 13:06-0500 Systolic Blood Pressure Non-Invasive 112 1 SANTIAGO BAH DPM [address] [place] [address] 09-13-2022 12:50-0500 Body temperature 97.16 [degF] SANTIAGO BAH DPM [address] [place] [address] 09-13-2022 12:50-0500 Heart rate 85 /min SANTIAGO BAH DPM [facility] 09-13-2022 12:50-0500 Respiratory Rate - Anes 0 br/min SANTIAGO BAH DPM [facility] 09-13-2022 12:45-0500 Respiratory Rate - Anes 0 br/min SANTIAGO BAH DPM [facility] 09-13-2022 12:40-0500 Body temperature 97.7 [degF] SANTIAGO BAH DPM [facility] 09-13-2022 12:40-0500 Respiratory Rate - Anes 17 br/min SANTIAGO BAH DPM [facility] 09-13-2022 12:30-0500 Body temperature 97.7 [degF] SANTIAGO BAH DPM [facility] 09-13-2022 12:15-0500 Body temperature 97.7 [degF] SANTIAGO BAH DPM [facility] 09-13-2022 09:55-0500 Body height 165.1 cm SANTIAGO BAH DPM [facility] 09-13-2022 09:55-0500 Body weight 117.9 kg SANTIAGO BAH DPM [facility] 09-13-2022 09:55-0500 Heart rate 88 /min SANTIAGO BAH DPM [facility] 09-11-2022 09:26-0500 Blood Pressure Cuff Size SANTIAGO BAH DPM [facility] 09-11-2022 09:26-0500 Blood Pressure Location SANTIAGO BAH DPM [facility] 09-11-2022 09:26-0500 Blood Pressure Method SANTIAGO BAH DPM [facility] 09-11-2022 09:26-0500 Body height 165 cm SANTIAGO BAH DPM [facility] 09-11-2022 09:26-0500 Body temperature 97.52 [degF] SANTIAGO BAH DPM [facility] 09-11-2022 09:26-0500 Body weight 120.4 kg SANTIAGO BAH DPM [facility] 09-11-2022 09:26-0500 Diastolic Blood Pressure Non-Invasive 81 1 SANTIAGO BAH DPM [facility] 09-11-2022 09:26-0500 Heart rate 88 /min SANITAGO BAH DPM [facility] 09-11-2022 09:26-0500 Systolic Blood Pressure Non-Invasive 132 1 SANTIAGO BAH DPM [facility] 09-02-2022 09:29-0500 Body height 165.1 cm Francie Folk [employer] P[employer]ER[employer]PHOTO RETOUCHER Work Phone: [facility] 09-02-2022 09:29-0500 Body weight 120.2 kg Francie Folk [employer] PACKER.PHOTO RETOUCHER Work Phone: [facility] 09-02-2022 09:29-0500 Diastolic blood pressure 76 mm[Hg] Francie Folk [employer] PACKER.PHOTO RETOUCHER Work Phone: [facility] 09-02-2022 09:29-0500 Heart rate 99 /min Francie Folk [employer] P[employer]ER.PHOTO RETOUCHER Work Phone: [facility] 09-02-2022 09:29-0500 SaO2% (BldA) [Mass fraction] 96 % Francie Folk [employer] PACKER.PHOTO RETOUCHER Work Phone: [facility] 09-02-2022 09:29-0500 Systolic blood pressure 111 mm[Hg] Francie Folk [employer] PACKER.PHOTO RETOUCHER Work Phone: [facility] 06-14-2022 19:07-0400 Body temperature 96.8 [degF] DR BLADIMIR BEAULIEU DPM [facility] 06-14-2022 19:07-0400 Diastolic blood pressure 69 mm[Hg] DR BLADIMIR BEAULIEU DPM [facility] 06-14-2022 19:07-0400 Heart rate 90 /min DR BLADIMIR BEAULIEU DPM [facility] 06-14-2022 19:07-0400 Mean blood pressure 87 mm[Hg] DR BLADIMIR BEAULIEU DPM [facility] 06-14-2022 19:07-0400 Reason For Taking VItal Signs DR BLADIMIR BEAULIEU DPM [facility] 06-14-2022 19:07-0400 Respiratory rate 18 /min DR BLADIMIR BEAULIEU DPM [facility] 06-14-2022 19:07-0400 Systolic blood pressure 123 mm[Hg] DR BLADIMIR BEAULIEU DPM [facility] 06-14-2022 18:49-0400 Body temperature 96.8 [degF] DR BLADIMIR BEAULIEU DPM [facility] 06-14-2022 18:49-0400 Diastolic Blood Pressure NBP [address] BLADIMIR BEAULIEU DPM [facility] 06-14-2022 18:49-0400 Heart rate 94 /min DR BLADIMIR BEAULIEU DPM [facility] 06-14-2022 18:49-0400 Mean blood pressure 91 mm[Hg] DR BLADIMIR BEAULIEU DPM [facility] 06-14-2022 18:49-0400 Respiratory rate 18 /min DR BLADIMIR BEAULIEU DPM [facility] 06-14-2022 18:49-0400 Systolic Blood Pressure NBP [address] BLADIMIR BEAULIEU DPM [facility] 06-14-2022 18:35-0400 Diastolic Blood Pressure NBP [address] BLADIMIR BEAULIEU DPM [facility] 06-14-2022 18:35-0400 Heart rate 99 /min DR BLADIMIR BEAULIEU DPM [facility] 06-14-2022 18:35-0400 Mean blood pressure 91 mm[Hg] DR BLADIMIR BEAULIEU DPM [facility] 06-14-2022 18:35-0400 Respiratory rate 18 /min DR BLADIMIR BEAULIEU DPM [facility] 06-14-2022 18:35-0400 Systolic Blood Pressure NBP [address] BLADIMIR BEAULIEU DPM [facility] 06-14-2022 18:20-0400 Diastolic Blood Pressure NBP [address] BLADIMIR BEAULIEU DPM [facility] 06-14-2022 18:20-0400 Heart rate 91 /min DR BLADIMIR BEAULIEU DPM [facility] 06-14-2022 18:20-0400 Mean blood pressure 94 mm[Hg] DR BLADIMIR BEAULIEU DPM [facility] 06-14-2022 18:20-0400 Systolic Blood Pressure NBP [address] BLADIMIR BEAULIEU DPM [facility] 06-14-2022 18:04-0400 Body temperature 96.8 [degF] DR BLADIMIR BEAULIEU DPM [facility] 06-14-2022 17:45-0400 Body temperature 98.8 [degF] DR BLADIMIR BEAULIEU DPM [facility] 06-14-2022 17:40-0400 Body temperature 98.65 [degF] DR BLADIMIR BEAULIEU DPM [facility] 06-14-2022 17:35-0400 Body temperature 98.71 [degF] DR BLADIMIR BEAULIEU DPM [facility] 06-14-2022 11:49-0400 Heart rate 75 /min DR BLADIMIR BEAULIEU DPM [facility] 06-14-2022 10:21-0400 Heart rate 75 /min DR BLADIMIR BEAULIEU DPM [facility] Encounters Encounter Date Encounter Type Care Provider Facility Start: 08-22-2023 ambulatory [facility] Facility: [facility] Start: 08-08-2023 End: 08-08-2023 ambulatory [facility] Facility:[facility] Start: 08-08-2023 End: 08-08-2023 Patient encounter procedure Guillaume Stanley OD Work Phone: [facility] Procedures Date Procedure Procedure Detail Performing Clinician Start: 04-16-2023 Hemoglobin A1c/Hemoglobin.total in Blood Francie Folk [employer] P[employer]ER[employer]PHOTO RETOUCHER Work Phone: Start: 10-14-2022 Hemoglobin A1c/Hemoglobin.total in Blood Francie Folk [employer] P[employer]ER.PHOTO RETOUCHER Work Phone: Start: 05-25-2022 Arthrodesis of ankle MARS REY BAH DPM Plan of Treatment Date Care Activity Detail Author Start: 01-31-2026 LIPID SCREEN LIPID SCREEN [facility] Start: 08-08-2024 Glaucoma screening Dilated Retinal E xam [facility] Start: 07-24-2024 BP Controlled (<130/80) BP Controlle d (<130/80) [facility] Start: 07-23-2024 3 comp foot exam completed Diabetic Foot Exam [facility] Start: 07-23-2024 Diabetic foot examination Diabetic Foot Exam [facility] Start: 04-16-2024 BP CONTROLLED (<130/80) BP CONTROLLE D (<130/80) [facility] Start: 02-01-2024 DIABETES SCREEN DIABETES SCREEN [facility] Start: 01-14-2024 BP CONTROLLED (<130/80) BP CONTROLLE D (<130/80) [facility] Start: 10-17-2023 Hemoglobin A1c measurement HbA1C [facility] Start: 10-17-2023 Hemoglobin A1c/Hemoglobin.total in Blood HBA1C [facility] Start: 10-14-2023 BP CONTROLLED (<130/80) BP CONTROLLE D (<130/80) [facility] Start: 08-27-2023 Hepatitis B surface antibody level LDL CHOLESTEROL [facility] Start: 08-22-2023 End: 08-08-2024 [facility] Vascular Lab Routine Hollenhorst plaque, left eye Expected: 08/22/2023, Expires: 08/08/2024 [facility] Work Phone: Immunizations Immunization Date Immunization Notes Care Provider Jaimee paiz 01-09-2022 SARS-CoV-2 mRNA (annettezinambrin) vaccine DR [facility] Payers Date Payer Category Payer Medicare [id number] 2018 Medicaid [id number] 2018 Medicare [id number] 2018 Medicare [id number] 2018 Medicare [id number] 1970 Unknown [id number] 1970 Unknown [id number] 1970 Unknown [id number] 1970 Unknown [id number] 1970 Unknown [id number] 1959 Unknown [id number] Social History Date Type Detail Facility Start: 01-21-2019 End: 05-06-2022 Tobacco smoking status AKIS Never smoked tobacco [facility] Start: 01-21-2019 End: 05-06-2022 Tobacco use and exposure Smokeless tobacco non-user [facility] Start: 06-21-2021 End: 08-08-2023 Alcohol intake Lifetime non-drinker (finding) [facility] Start: 02-28-2020 History SDOH Alcohol Frequency 1 [facility] Start: 1970 Sex Assigned At Not on file [facility] Start: 12-15-2021 End: 03-28-2022 Exposure to SARS-CoV-2 (event) Not sure [facility] History of tobacco use Passive smoker [facility] Start: 1970 Sex Assigned At Female A [facility] Start: 02-28-2020 End: 01-13-2023 History of Social function [place] [facility] Start: 02-28-2020 End: 01-13-2023 Alcohol Use Disorder Identification Test - Consumption [AUDIT-C] [facility] How often to you hav e a drink containing alcohol? Never [facility] Average Number of Drinks Not on file [facility] Start: 07-29-2023 Gender identity Identifies as female gender (finding) [facility] Start: 07-29-2023 Sexual orientation Heterosexual (fin amber) [facility] Medical Equipment Procedure Code Equipment Code Equipment Origin al Text Equipment Identifier Dates POD Total Ankle Replacement Unknown 06/14/22 Unknown Unknown FDA Start: 06-14-2022 POD Total Ankle Replacement Unknown 06/14/22 Unknown Unknown FDA Start: 06-14-2022 POD Total Ankle Replacement Unknown 06/14/22 Unknown Unknown FDA Start: 06-14-2022 POD Total Ankle Replacement Unknown 06/14/22 Unknown Unknown FDA Start: 06-14-2022 POD Total Ankle Replacement Unknown 06/14/22 Unknown Unknown FDA Start: 06-14-2022 POD Total Ankle Replacement Unknown 06/14/22 Unknown Unknown FDA Start: 06-14-2022 POD Total Ankle Replacement Unknown 06/14/22 Unknown Unknown FDA Start: 06-14-2022 POD Total Ankle Replacement Unknown 06/14/22 Unknown Unknown FDA Start: 06-14-2022 POD Total Ankle Replacement Unknown 06/14/22 Unknown Unknown FDA Start: 06-14-2022 See Instructions , Shanyle Precision ...use 1 daily, # 100 EA, 0 Refill(s), Pharmacy: [facility], DM type 2 with diabetic peripheral neuropathy Start: 03-25-2019 POD Total Ankle Replacement Unknown 06/14/22 Unknown Unknown FDA Start: 06-14-2022 POD Total Ankle Replacement Unknown 06/14/22 Unknown Unknown FDA Start: 06-14-2022 POD Total Ankle Replacement Unknown 06/14/22 Unknown Unknown FDA Start: 06-14-2022 POD Total Ankle Replacement Unknown 06/14/22 Unknown Unknown FDA Start: 06-14-2022 POD Total Ankle Replacement Unknown 06/14/22 Unknown Unknown FDA Start: 06-14-2022 POD Total Ankle Replacement Unknown 06/14/22 Unknown Unknown FDA Start: 06-14-2022 POD Total Ankle Replacement Unknown 06/14/22 Unknown Unknown FDA Start: 06-14-2022 POD Total Ankle Replacement Unknown 06/14/22 Unknown Unknown FDA Start: 06-14-2022 POD Total Ankle Replacement Unknown 06/14/22 Unknown Unknown FDA Start: 06-14-2022 See Instructions , Freestyle Precision ...use 1 daily, # 100 EA, 0 Refill(s), Pharmacy: [facility], DM type 2 with diabetic peripheral neuropathy Start: 03-25-2019 POD Total Ankle Replacement Unknown 06/14/22 Unknown Unknown FDA Start: 06-14-2022 POD Total Ankle Replacement Unknown 06/14/22 Unknown Unknown FDA Start: 06-14-2022 POD Total Ankle Replacement Unknown 06/14/22 Unknown Unknown FDA Start: 06-14-2022 POD Total Ankle Replacement Unknown 06/14/22 Unknown Unknown FDA Start: 06-14-2022 POD Total Ankle Replacement Unknown 06/14/22 Unknown Unknown FDA Start: 06-14-2022 POD Total Ankle Replacement Unknown 06/14/22 Unknown Unknown FDA Start: 06-14-2022 POD Total Ankle Replacement Unknown 06/14/22 Unknown Unknown FDA Start: 06-14-2022 POD Total Ankle Replacement Unknown 06/14/22 Unknown Unknown FDA Start: 06-14-2022 POD Total Ankle Replacement Unknown 06/14/22 Unknown Unknown FDA Start: 06-14-2022 POD Wound Debrid ement Unknown 09/13/22 Unknown Unknown FDA Start: 09-13-2022 See Instructions , Freestyle Precision ...use 1 daily, # 100 EA, 0 Refill(s), Pharmacy: [facility], DM type 2 with diabetic peripheral neuropathy Start: 03-25-2019 Functional Status Date Assessment Result Facility 09-13-2022 Functional Status elevated on pi llows, ice on [facility] 09-13-2022 Functional Status Maintained [facility] 06-14-2022 Functional Status Up to bathroom [facility] 06-14-2022 Functional Status [facility] 06-14-2022 Functional Status NPO Status Maintained [facility] 06-14-2022 Functional Status [facility] Mental Status Date Assessment Result Facility 09-13-2022 Mental Status Oriented x 4 [facility] 09-13-2022 Mental Status [facility] 06-14-2022 Mental Status Oriented x 4 [facility] 06-14-2022 Mental Status [facility] 06-14-2022 Mental Status [facility] Clinical Notes 12-25-2021 to 08-08-2023 Guillaume Stanley, OD - 08/08/2023 4:53 PM ESTPatient InstructionsPatient InstructionsBell Ijeoma ALAS K - 07/24/2023 1:14 PM ESTHasenIvon maravilla, CAR PACKER.PHOTO RETOUCHER - 07/24/2023 1:00 PM ESTPatient Instructions Note Date & Type Note Facility 08-08-2023 Note HNO ID: [id number] Author: Guillaume Stanley, RADHA Service: ? Author Type: CORPORATE DEVELOPMENT ASSOCIATE Type: Progress Notes Filed: 08/08/2023 4:55 PM Note Text: 1. Hollenhorst plaque, left eye -new finding today -on statin -recommend carotid doplar, will communicate results to patient, may also require thoracic echo 2. Type 2 diabetes mellitus with both eyes affected by mild nonproliferative retinopathy without macular edema, with long-term current use of insulin (HCC) -mild OU -will decide on recall duration when #1 results received 3. Age-related nuclear cataract of both eyes Educated patient on exam findings; surgical removal is not indicated at this time. Monitor at the next complete exam or sooner with vision changes, worsening symptoms of cataracts (increases in glare/halos/blur). 4. Dry eye syndrome of both eyes -released refresh prescription to patient's pharmacy, use at least 4x/day OU 5. Refractive error 6. Presbyopia - Educated patient on exam findings - new glasses prescription released to patient. Monitor complete exam. Will communicate test findings to patient when results received Guillaume Stanley OD [facility] 08-08-2023 History of Presen t illness Narrative 1. Hollenhorst plaque, left eye -new finding today -on statin -recommend carotid doplar, will communicate results to patient, may also require thoracic echo 2. Type 2 diabetes mellitus with both eyes affected by mild nonproliferative retinopathy without macular edema, with long-term current use of insulin (HCC) -mild OU -will decide on recall duration when #1 results received 3. Age-related nuclear cataract of both eyes Educated patient on exam findings; surgical removal is not indicated at this time. Monitor at the next complete exam or sooner with vision changes, worsening symptoms of cataracts (increases in glare/halos/blur). 4. Dry eye syndrome of both eyes -released refresh prescription to patient's pharmacy, use at least 4x/day OU 5. Refractive error 6. Presbyopia - Educated patient on exam findings - new glasses prescription released to patient. Monitor complete exam. Will communicate test findings to patient when results received Guillaume Stanley, RADHA documented in this encounter [facility] 08-08-2023 Instructions Guillaume Stanley, OD - 08/08/2023 3:[address] Stanley has recommended that you use a lubricating drop. His preferred drops are: 1. Systane Ultra 2. Any Refresh product 3. Genteal (any product in this line) 4. Soothe 5. BLINK NEVER use any product marked as gets the red out . Drops marked as 'get the red out' can make the condition of redness worse over time. You are to use this drop as needed. Always remember, to get the most benefit from the drops, close your eyes for 5 minutes after instillation. If you are using an artifical tear more than 4 times per day, please purchase the 'preservative-free' option of one of the above listed brands. documented in this encounter [facility] 07-24-2023 Note HNO ID: [id number] Author: Ivon Page APRN.PHOTO RETOUCHER Service: ? Author Type: Nurse Practitioner Type: Progress Notes Filed: 07/25/2023 11:19 AM Note Text: BMI Obesity Medicine Consult 07/24/[address] Francoise Scott ref. provider found for an opinion regarding Obesity. My final recommendations will be communicated back to the requesting physician by way of shared Medical record or letter to requesting physician via [place] mail. Patient HPI summary: Machelle Friedman is a 53 year old female with obesity who presents to the [facility] bariatric and [facility] [place] for an initial evaluation of her obesity and past medical history of diabetic peripheral neuropathy associated with type 2 diabetes mellitus (HCC), chronic pain of right ankle, chronic pain disorder, diabetic peripheral neuropathy, mild tibial band syndrome, neuropathy, pain of right upper extremity, ocular migraine, hyperlipidemia, hypertension, obstructive sleep apnea on CPAP, asthma, obstructive sleep apnea syndrome, leg labyrinthitis, gastroesophageal reflux, abdominal pain, indigestion, acquired hypothyroidism, papillary microcarcinoma of the thyroid, status post radioactive iodine thyroid ablation, hypothyroidism, thyroid nodule, elevated hemoglobin, primary hypercoagulable state, anxiety, axillary lymphedema , herpes zoster, age-related nuclear cataract of both eyes, myopia of both eyes, folliculitis, Arthritis, edema of lower extremities, depression, history of total thyroidectomy, menopause, and is interested in behavioral , pharmacological, and non-surgical weight loss approaches. Bariatric Surgery Discussion: consult placed with ZORAN Nichole Primary reason for wanting obesity treatment : improve health and improve diabetes; joint pain Overall goal: 147 lbs lose approximately 115 lbs Weight History: She reports a strong family history of obesity and childhood onset weight gain. She states her weight gain is related to the following factors, including medications, depression meds, stress and trauma, post weight gain, nutrition and activity; menopausal . Weight Graph: (please see graph scanned in chart) Medications: Liraglutide (Victoza) , Metformin, - gi intolerance, and Topiramate-for behavior health Insulin Humalog lispro 14 units subcutaneous 3 times a day before meals inject on sliding scale 3 times daily with meals max dose of 100 units, Pump is humalog 200 units Ozempic 1 mg subcutaneous weekly injection, PRN when pump fails Lantus insulin 60 units subcutaneous daily at bedtime, per endocrinology Francie Linares APRN Diet: Food preparation and grocery shopping: patient and spouse Quality of diet: 24hr recall suggests combination of both healthy and unhealthy diet. Characterization of diet:Structured, Unstructured, unhealthy snacking, excessive cravings, evening snacking, and skip meals. Hospital Educator of impaired eating habits:excessive hunger, lack of satiety, mindlessness , boredom, emotion, and stress Eating Disorder binge eating, night eating, and sleep related eating B: 9:30 am - toast, 2 slices jelly and butter or donuts, McDonalds egg mcmuffin croissants burger bal and hash browns L: skip D:6:00 pm 6:30 - meat, vegetables and potato , eat out, fire house subs, [employer] , tio, pizza Snacks: afternoon and evening - konrad popcorn and pretzels candy bar , oreo Beverages: Water:16 ounces Soda: diet, 6 cans day Coffee/tea: Coffee: 16 ounces, zero creamer, 2 of them; Tea: gold peak zero sugar sweet Alcohol:occasionally cooler Diet History: Past weight loss attempts? commercial diets, self-directed, exercise program, health dramatic coach, and dietitian. Exercise: Regular exercise: No Strength/resistance exercise:No Barriers to regular exercise? Motivation, discouraged, overwhelmed Work-related activity:Sedentary. ?Sleep: Duration: 5 hours. MAGALY YES ; CPAP YES 4 years ago and follow up January 2023 Quality:fair, Numerous awakenings:Sleep-wake cycle disruption:No ??Stress: Marked, Cause:work, financial and children Obesity Related Comorbidities: Prior Weight Loss Surgery:No ACTIVE PROBLEM LIST Obesity, Class III, BMI >= 40 Acquired Hypothyroidism Papillary Microcarcinoma of Thyroid (Hcc) H/O Total Thyroidectomy Obesity, Class II, Bmi 35-39.9 S/P Radioactive Iodine Thyroid Ablation Magaly On Cpap Gerd (Gastroesophageal Reflux Disease) Diabetic Peripheral Neuropathy Associated With Type 2 Diabetes Mellitus (Hcc) Breast Cancer Screening Abdominal Pain Anxiety Chronic Pain of Right Ankle Axillary Lymphadenopathy Bereavement Carbuncle of Limb, Unspecified Chronic Pain Disorder Depression Diabetes Mellitus (Hcc) Diabetic Peripheral Neuropathy (Hcc) Edema of Lower Extremity Elevated Hemoglobin (Hcc) Environmental Allergies Folliculitis Gastroesophageal Reflux Disease Herpes Zoster (more content not included)... [facility] 07-24-2023 Instructions Ivon Page APRN.PHOTO RETOUCHER - 07/24/2023 2:13 PM EST Images from the original note were not included. Dear Ms. Friedman: It was a pleasure to care for you today: Here are today's highlights: Nutrition: Begin more consistent meals and mealtimes Example - B 9:30 - 1pm and dinner 6:30 snack 3:30 Water 60-80 ounces Protein replacement shakes; Premier, Aldi, 30 grams protein, 1-2 grams sugar and 4-7 grams carbs More protein Avoid processed foods- starchy, noodles,fast food Increase fruits and vegetabes Activity: Stretching Water aerobics Medications: Goals: look what eating more consistent; increase water 4- 60 ounces Lea Project: Insulin Humalog lispro 14 units subcutaneous 3 times a day before meals inject on sliding scale 3 times daily with meals max dose of 100 units, Pump is humalog 200 units Ozempic 1 mg subcutaneous weekly injection, PRN when pump fails Lantus insulin 60 units subcutaneous daily at bedtime, per endocrinology ANTONIA Mercado Beginner s Guide to Healthy Meal Prep How to set yourself up for healthy eating success Xsigo Twitter Linkedin Pinterest Email If your plan to churn out healthy homemade dinners all week tends to come completely unraveled by , you re not alone. Healthy eating can easily fall by the wayside when you re juggling a busy schedule and lots of responsibilities. One trick that many healthy eaters swear by to save time and keep them on track? Meal prepping. If what immediately comes to mind is an image of bland chicken breast, rice and green beans perfectly portioned out into a week s worth of containers, try not to give up on the idea just yet. While that s one way to meal prep, it certainly isn t the only way. In fact, there s no one magic formula for meal prep -- and that s the beauty of it. It s a strategy that can be adapted to your unique schedule and lifestyle to help you become more efficient in the kitchen. How meal prep helps Meal prepping simply means preparing or batch-cooking meals, snacks or ingredients ahead of time, to make healthy eating easier during your busier days. For one person that might mean making a week s worth of breakfasts and lunches that they can reheat at work. For another, it might mean just chopping up some extra veggies and making a homemade salad dressing to use throughout the week. You can quickly make multiple days worth of food and then not worry about meals the rest of the week, explains registered dietitian Ag Knox, MS, RDN, LD. And, knowing you have something waiting in the fridge might make you less likely to swing through the drive-thru for an emergency lunch or dinner. It s also a fantastic way to mix things up and get more variety in your diet, Abilio says, because it forces you to plan ahead and brainstorm your meals in advance, rather than relying on your ovcjv-hwi-mdsi meals in a pinch. Whatever your meal prep style or reason, here s how to get started. Step 1: Think storage Before you even start thinking about what you re going to make, it s important think about how you re going to keep everything fresh and organized. My best recommendation is to get good-quality, airtight, microwave- and cigar tobacco rehandler-safe containers, Abilio says. Good-quality containers will not have to be replaced for a long time, so it s worth the money to get a good set you will love. Make sure that whatever you get includes a variety of sized containers, including some small ones to store sauces and dressing separately (because no one likes a soggy salad). Step 2: Make a game plan Next, Abilio suggests picking a day and time that you will dedicate to preparing meals so that it becomes routine. Make sure it s a day where you have a few hours to spend, she says. Most of my patients love Friday for this. If you re grimacing at the thought of giving up a good chunk of your bi weekend to this cause, Abilio recommends choosing a day earlier in the week to plan and do your grocery shopping. Step 3: Pick your recipes Now it s time to choose what you re going to make and write up a shopping list. Your meals can be specific recipes or just combinations of simple proteins, whole grains and vegetables. Abilio offers these tips for making good picks: Make sure any recipes you pick are well-rounded and include vegetables, lean proteins and whole grains. If any of your recipes contain excessive amounts of fat, sugar and salt, plan to make substitutions or reduce the amount of salt, sugar or oil in the recipe. Start simple. Choose meals that are easy to prepare and don t contain a ton of ingredients. (Now s not the time to attempt Melvina Peralta.) Don t let yourself get overwhelmed with complicated recipes when you re just getting started, Abilio says. Choose ingredients with a variety of colors and textures. Different textures will keep your palate interested, and different colors will give you a variety of micronutrients that will benefit your body. Consider meals where you can reuse ingredients. For example, make a batch of baked chicken, and then serve it one day with steamed broccoli and a sweet potato, and another day over greens with some whole-grain crackers. Look for recipes that can be cooked in a slow cooker or pressure cooker to save even more time. Avoid making the same meal two weeks in a row. Even your favorite recipe will get old if you eat it too often. Some healthy meal prep ideas for the week include: Peanut butter sandwich on 100% whole grain bread with a small bag of baby carrots. Chicken vegetable stir de la rosa over brown rice. Burrito bowl with brown rice or cauliflower rice; black beans; tomatoes; saut ed peppers and onions; a few thin slice of avocado and a sprinkle of cheese. Lentil vegetable soup. Roasted chicken, sweet potato and cauliflower or [place] sprouts. Step 4: Ready, set, go! Ready to get to work? Make your time in the kitchen as enjoyable as possible by cranking up some tunes, or putting on an audiobook or podcast. Or, invite a family member or friend to join you. Once your food is made, cooled and transferred into airtight containers, it should last about three to four days in the refrigerator. But if a recipe makes more than you can eat in that time - or if you get sick of eating one of the meals you prepped - just pop the remaining servings into the freezer. In a week or two, it ll be a quick option when you don t feel like cooking, Abilio says. Speaking of the freezer, Abilio recommends keeping frozen berries and a variety of frozen vegetables on hand, too. They re pre-washed, pre-chopped and can be microwave-steamed in a pinch. Remember, meal prep isn t dsz-ge-gpthtqq, and there s no definitive right or wrong way to do it. So find what works for you, and don t worry about being perfect. A few small steps done in advance can go a long way [email or web address] [email or web address]-mavmqtodj-xpkjr-to-healthy- meal-prep/ documented in this encounter [facility] 07-24-2023 Nurse Note Neck: 16.5 inches Waist: 46 inches Body Type: Standard Gender: female Age: 53 Height: 5' 5 Clothes Weight: 3.0 lb Weight: 262.8 lb Body Fat %: 48.8% Body Fat Mass: 128.2 lb Fat-Free Mass FFM: 134.6 lb Muscle Mass: 127.8 lb Muscle %: 48.6% Total Body Water (TBW): 91.8 lb Total Body Water (TBW) %: 34.9% Bone Mass: 6.8 lb Basal Metabolic Rate (BMR): 8012 kJ / 1915 kcal Metabolic Age: 68 Visceral Fat Ratin Body Mass Index (BMI): 43.7 [place] Body Weight: 132.2 lb Degree of Obesity: 98.8% Ijeoma Cronin MA documented in this encounter [facility] 07-24-2023 History of Presen t illness Narrative BMI Obesity Medicine Consult 07/24/[address] Francoise Scott ref. provider found for an opinion regarding Obesity. My final recommendations will be communicated back to the requesting physician by way of shared Medical record or letter to requesting physician via [place] mail. Patient HPI summary: Machelle Friedman is a 53 year old female with obesity who presents to the [facility]ariat[facility] and [facility] [place] for an initial evaluation of her obesity and past medical history of diabetic peripheral neuropathy associated with type 2 diabetes mellitus (HCC), chronic pain of right ankle, chronic pain disorder, diabetic peripheral neuropathy, mild tibial band syndrome, neuropathy, pain of right upper extremity, ocular migraine, hyperlipidemia, hypertension, obstructive sleep apnea on CPAP, asthma, obstructive sleep apnea syndrome, leg labyrinthitis, gastroesophageal reflux, abdominal pain, indigestion, acquired hypothyroidism, papillary microcarcinoma of the thyroid, status post radioactive iodine thyroid ablation, hypothyroidism, thyroid nodule, elevated hemoglobin, primary hypercoagulable state, anxiety, axillary lymphedema , herpes zoster, age-related nuclear cataract of both eyes, myopia of both eyes, folliculitis, Arthritis, edema of lower extremities, depression, history of total thyroidectomy, menopause, and is interested in behavioral , pharmacological, and non-surgical weight loss approaches. Bariatric Surgery Discussion: consult placed with ZORAN Nichole Primary reason for wanting obesity treatment : improve health and improve diabetes; joint pain Overall goal: 147 lbs lose approximately 115 lbs Weight History: She reports a strong family history of obesity and childhood onset weight gain. She states her weight gain is related to the following factors, including medications, depression meds, stress and trauma, post weight gain, nutrition and activity; menopausal . Weight Graph: (please see graph scanned in chart) Medications: Liraglutide (Victoza) , Metformin, - gi intolerance, and Topiramate-for behavior health Insulin Humalog lispro 14 units subcutaneous 3 times a day before meals inject on sliding scale 3 times daily with meals max dose of 100 units, Pump is humalog 200 units Ozempic 1 mg subcutaneous weekly injection, PRN when pump fails Lantus insulin 60 units subcutaneous daily at bedtime, per endocrinology Francie Linares APRN Diet: Food preparation and grocery shopping: patient and spouse Quality of diet: 24hr recall suggests combination of both healthy and unhealthy diet. Characterization of diet:Structured, Unstructured, unhealthy snacking, excessive cravings, evening snacking, and skip meals. Hospital Educator of impaired eating habits:excessive hunger, lack of satiety, mindlessness , boredom, emotion, and stress Eating Disorder binge eating, night eating, and sleep related eating B: 9:30 am - toast, 2 slices jelly and butter or donuts, [employer]onalds egg mcmuffin croissants burger bal and hash browns L: skip D:6:00 pm 6:30 - meat, vegetables and potato , eat out, fire house subs, [employer] , tio, pizza Snacks: afternoon and evening - konrad popcorn and pretzels candy bar , oreo Beverages: Water:16 ounces Soda: diet, 6 cans day Coffee/tea: Coffee: 16 ounces, zero creamer, 2 of them; Tea: gold peak zero sugar sweet Alcohol:occasionally cooler Diet History: Past weight loss attempts? commercial diets, self-directed, exercise program, health dramatic coach, and dietitian. Exercise: Regular exercise: No Strength/resistance exercise:No Barriers to regular exercise? Motivation, discouraged, overwhelmed Work-related activity:Sedentary. ?Sleep: Duration: 5 hours. MAGALY YES ; CPAP YES 4 years ago and follow up January 2023 Quality:fair, Numerous awakenings:Sleep-wake cycle disruption:No ??Stress: Marked, Cause:work, financial and children Obesity Related Comorbidities: Prior Weight Loss Surgery:No ACTIVE PROBLEM LIST Obesity, Class III, BMI >= 40 Acquired Hypothyroidism Papillary Microcarcinoma of Thyroid (Hcc) H/O Total Thyroidectomy Obesity, Class II, Bmi 35-39.9 S/P Radioactive Iodine Thyroid Ablation Magaly On Cpap Gerd (Gastroesophageal Reflux Disease) Diabetic Peripheral Neuropathy Associated With Type 2 Diabetes Mellitus (Hcc) Breast Cancer Screening Abdominal Pain Anxiety Chronic Pain of Right Ankle Axillary Lymphadenopathy Bereavement Carbuncle of Limb, Unspecified Chronic Pain Disorder Depression Diabetes Mellitus (Hcc) Diabetic Peripheral Neuropathy (Hcc) Edema of Lower Extremity Elevated Hemoglobin (Hcc) Environmental Allergies Folliculitis Gastroesophageal Reflux Disease Herpes Zoster Hyperlipidemia Hypertension Arthritis Iliotibial Band Syndrome Indigestion Knee Pain, Left Labyrinthitis Menopause Present Need for Immunization Against Influenza Neuropathy Obesity, Morbid (Hcc) Pain of Right Upper Extremity Patient's Noncompliance With Other Medical Treatment and Regimen Primary Hypercoagulable State (Hcc) Type 2 Diabetes Mellitus With Other Diabetic Ophthalmic Complication (Hcc) Type 2 Diabetes Mellitus With Hyperglycemia, With Long-Term Current Use of Insulin (Hcc) Colon Cancer Screening Well Adult Health Check Encounter for Long-Term Methadone Use Visit for Screening Mammogram Hypothyroidism Thyroid Nodule Class 2 Obesity Asthma Obstructive Sleep Apnea Syndrome Diabetes Mellitus Type 2 Without Retinopathy (Hcc) Age-Related Nuclear Cataract of Both Eyes Myopia of Both Eyes Regular Astigmatism of Both Eyes Presbyopia Eye Redness Ocular Migraine Other Abnormalities of Gait and Mobility Status Post Ankle Fusion PAST SURGICAL HISTORY Procedure Laterality Date SECTION MULTI>2 CHOLECYSTECTOMY D AND C Diagnostic LAD INITIAL LAPAROSCOPIC FIBROID ABLATION PAST SURGICAL HISTORY OF x3 Bilateral PAST SURGICAL HISTORY OF Tendon repair and alignment PAST SURGICAL HISTORY OF Uterine surgery REMOVAL OF THYROID RHINOPLASTY TUBAL LIGATION HX Obesity ROS/ FHx GEN: Fatigue:yes CV: h/o palpitations/cardiac arrhythmia, CP:abnormal ekg PULM: Asthma:wendy GI: GERD:yes pepcid and omeprazole; Gallstones: hx of cholecystectomy ; Fatty liver disease:yes; H/o hernia:No Pancreatitis: states remote due to blood sugar MSK: Joint Pain:back, legs, knee and shoulders and neuropathy : Nephrolithiasis:No; Stress incontinence:yes Symptoms of PCOS(women):No thyroid disorder, DM on insulin, and DM on oral agent NEURO: Migraines/PFEIFFER:headaches and migraine; H/o seizures: yes pending neurology consult Stroke: no TIA: Yes 2008 Glaucoma:No; Cataracts No Symptoms of pseudotumor cerebri:No Diabetes Yes, HTN: Yes, Cardiac: Yes, GI: Yes, : Yes, Thyroid: Yes, and Neuro: Yes Psychiatric history: anxiety and depression and bipolar Substance use disorder: denies Medical marijuana: denies Tobacco: denies; Vaping: tried it Alcohol: rarely Family History Problem Relation Age of Onset Cataract Father Diabetes Father Cancer Father Prostate Leukemia Father Heart Attack Father other (Other) Father Abnormal Heart Beat Cataract Mother Diabetes Mother other (Other) Mother Abnormal Heart Baet Multiple Sclerosis Sister Cancer Sister Lung Diabetes Brother Detached Retina Brother Macular Degen Maternal Grandmother Diabetes Maternal Grandmother Diabetes Paternal Grandmother PREV: PAP Not UTD, Mammogram Not UTD and Colonoscopy UTD Social History Social History Tobacco Use Smoking status: Never Passive exposure: Past Smokeless tobacco: Never Vaping Use Vaping Use: Never used Substance Use Topics Alcohol use: Never Drug use: Never 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 Mixed central and gluteofemoral adiposity. Waist circumference measured. 46 inches No acanthosis, no lipoma, no pallor. No supraclavicular adiposity. No dorsal adiposity. PERRL. Tongue moist, pink. + OP crowding. Good dental hygiene RRR nl. s1s2 CTAB Abdomen Soft Protuberant ; + striae. NT/ND. + peripheral edema right leg greater than left lymphedema sl pitting Cap refill 2 seconds Results: reviewed with the patient Appointment on 06/23/2023 Component Date Value Ref Range Status TSH 06/23/2023 0.217 (L) 0.270 - 4.200 mIU/L Final Free T4 06/23/2023 1.3 0.9 - 1.7 ng/dL Final Free T3 06/23/2023 2.9 2.3 - 4.1 pg/mL Final Thyroglobulin Ab, Serum 06/23/2023 <0.9 <4.0 IU/mL Final Thyroglobulin, Serum 06/23/2023 0.1 (L) 1.6 - 50.0 ng/mL Final Impression: Machelle Friedman is a 53 year old female with Class III obesity (Body mass index is 44.07 kg/m .) who has childhood onset obesity with gradual weight gain despite several weight loss attempts. The causes of her obesity are multifactorial, biological, psychological and social and environmental. Specific factors include a genetic component related to a strong family of obesity, exposure to weight gain promoting medication(s) , increased consumption of high calorie/process foods, irregular eating patterns , suboptimal physical activity, onset of menopause, inadequate sleep duration, and post weight retention. She has few weight-related medical comorbidities which increase her cardiovascular mortality risk. There are additional metabolic obesity complications including type 2 diabetes mellitus, dyslipidemia, hypertension, obstructive sleep apnea, metabolic syndrome (thyroidectomy) , and elevated LFTs s/o non alcoholic fatty liver disease. History of obstructive sleep apnea. Other medical conditions as above. Regarding her lifestyle, as above, she has several behavioral contributors; her physical activity is non-existent. Overall, it is clear that her quality of life is severely compromised by her weight. It is likely a combination of weight loss therapies will be needed. She appears motivated today. Assessment and plan: ASSESSMENT/PLAN: 1. Obesity, Class III, BMI >= 40 - ICD9: 278.01, ICD10: E66.01 (primary diagnosis) Weight increasing - Behavioral and pharmacological intervention Counseled patient in length recommended to and more consistent meals and mealtimes and begin low carbohydrate low sugar nutrition and discussed techniques to manage maladaptive eating behaviors and adding resistance exercise. Discussed with patient and provided examples of low-carb low sugar foods, we discussed whole grains increasing fruits and vegetables and we discussed increasing her protein 60 to 90 g daily to stay trimble longer, avoiding processed foods and eating out and the effect of processed foods on the body as well as with weight and we discussed increasing her water 60 to 80 ounces daily. Additionally reviewed with patient intermittent fasting and the rationale behind it. Discussed with patient to increase cardio exercise add some weights and increase non- exercise activity thermogenesis. Discussed with patient various types of activities to try to increase her cardio and her metabolism. We discussed arm exercises, chair exercises, light arm weights, walking 10 to 15 minutes every few days, and light arm weights. I have also reviewed the possibility using weight loss medications in effort to reduce patient's appetite. I reviewed the different therapeutic options available including phentermine, Qsymia, Contrave, Saxenda, topiramate, metformin, bupropion and Effexor which all been associated weight loss. At this time we agreed that the patient's best option at this point to be: Continue medication as prescribed by endocrinology: Insulin Humalog lispro 14 units subcutaneous 3 times a day before meals inject on sliding scale 3 times daily with meals max dose of 100 units, Pump is humalog 200 units Ozempic 1 mg subcutaneous weekly injection, PRN when pump fails Lantus insulin 60 units subcutaneous daily at bedtime, per endocrinology Francie Linares APRN - CONSULT TO BARIATRIC SURGERY Will continue to focus on nutritional and lifestyle changes provided patient information on the [employer] project for underlying eating disorder as well as the phone number and information about the program. Discussed with patient setting 3 small goals that are SMART (Specific, Measurable, Achievable, Relevant, and Time-Bound), to be evaluated at her next visit. I reviewed with the patient the pros and cons of taking these medications. In addition discussed with patient to have at least 60 g of protein daily and at least 60-80 ounces of water daily. We also discussed monitoring blood pressure and reporting anything over 140/90 or greater. Patient verbalized understanding all questions and concerns addressed. 2. Anxiety - ICD9: 300.00, ICD10: F41.9 Continue current medications and follow-up with behavioral health specialist - CONSULT TO BARIATRIC SURGERY 3. Chronic pain disorder - ICD9: 338.4, ICD10: G89.4 New current medications and follow-up with [facility] 4. Hyperlipidemia, unspecified hyperlipidemia type - ICD9: 272.4, ICD10: E78.5 - Improving control - Counseled on healthy diet and regular exercise - CONSULT TO BARIATRIC SURGERY 5. Primary hypertension - ICD9: 401.9, ICD10: I10 - Controlled - Recommend home blood pressure monitoring, to bring results to next visit - Encouraged sodium restriction, DASH or Mediterranean diet - Recommend regular aerobic exercise - Discussed need for and benefit of weight loss. BMI 44.07 kg/(m^2) - Reviewed risks of hypertension and principles of treatment - CONSULT TO BARIATRIC SURGERY 6. MAGALY on CPAP - ICD9: 327.23, ICD10: G47.33 Encourage patient to use CPAP nightly - CONSULT TO BARIATRIC SURGERY 7. Asthma, unspecified asthma severity, unspecified whether complicated, unspecified whether persistent - ICD9: 493.90, ICD10: J45.909 - Mild persistent asthma stable - Avoidance of triggers recommended - CONSULT TO BARIATRIC SURGERY 8. Gastroesophageal reflux disease, unspecified whether esophagitis present - ICD9: 530.81, ICD10: K21.9 - Discussed lifestyle modifications including losing weight, limiting caffeine, no meals three hours before sleep, and head of bed elevation - CONSULT TO BARIATRIC SURGERY 9. Papillary microcarcinoma of thyroid (HCC) - ICD9: 193, ICD10: C73 Continue follow-up with endocrinology and monitoring as warranted - CONSULT TO BARIATRIC SURGERY 10. Type 2 diabetes mellitus with other diabetic ophthalmic complication (HCC) - ICD9: 250.50, ICD10: E11.39 - Improving control - Continue current medications - Counseled on healthy diet and regular exercise - Discussed need for and benefit of weight loss. BMI 44.07 kg/(m^2) - Discussed diabetic education issues of medication-specific side effects and monitoring - CONSULT TO BARIATRIC SURGERY This note was partially generated using [employer] voice recognition system, and there may be some incorrect words, spellings, and punctuation that were not noted in checking the note before saving. Plan: -- Based on the severity and resistance of the obesity to more conservative weight loss approaches, I believe a open to all options intervention is the best and most appropriate termite control servicer therapeutic option. -- We discussed several strategies to track food intake and increase mindfulness around eating. She was counseled on Food records, Meal replacements, Time restricted feeding, Intermittent fasting, Low carbohydrate diet, and Ketogenic diet -- Encouraged the patient to improve her physical activity. Although cardiovascular exercise is most beneficial for weight loss initially, we discussed healthy muscle from a combination of resistance training and cardiovascular exercise is the best fpc plan. An overall goal of 200 minutes per week of exercise has been effective in weight loss and maintenance. -- follow-up visit for management of above interventions 5A's- Assess: I assessed behavioral health risk/factors affecting --- Asked about/assess behavioral health risk(s) and factors affecting choice of behavior change goals --- somewhat sedentry lifestyle ---?snacking ---Lack of exercise Advise: clear, specific, personalized behavior change advice. ---I gave very clear, specific, and personalized behavior change adviced, including information about personal health harms and benefits. Agree: Patient agrees with selected appropriate treatment goals and methods to change behavior Assist: Provided IBT w self-help, handouts, teaching skills and support Using behavior change techniques with self-help and Counseling in achieving Goals. Also discussed supplementing with adjunctive medical treatments when appropriate. Arrange: follow up scheduled, handouts given to patient. Ivon Page APRN, DNP I spent a total of 69 minutes on the date of the service which included preparing to see the patient, [id number] patient care, completing clinical documentation, obtaining and/or reviewing separately obtained history, performing a medically appropriate examination, counseling and educating the patient/family/caregiver, ordering medications, tests, or procedures, communicating with other HCPs (not separately reported), independently interpreting results (not separately reported), communicating results to the patient/family/caregiver, and care coordination (not separately reported). documented in this encounter [facility] 07-23-2023 Note HNO ID: [id number] Author: Francie Britt APRN.RAZA Service: ? Author Type: Nurse Practitioner Type: Progress Notes Filed: 07/23/2023 2:09 PM Note Text: Rebecca Carty is a 52 year old female who presents for diabetes management. Timeline: Timeline: dx type 2 diabetes ~1999 Complications: (+) retinopathy, (+) neuropathy, (-) nephropathy Course: has been on insulin for several years. Has followed with Dr Irwin and Dr Cunningham. She continues to follow with Dr Cunningham for thyroid. First visit with me for diabetes management 03/2022. Current medications for diabetes: Ozempic 2mg once weekly (Friday) Pump Settings: -- Pump Type: OP5 -- Insulin Type: humalog u200 Basal rate: Time 0.95 U/Hr Total Basal: 22.8 Carb ratio: 10 Insulin Sensitivity: 38 Blood glucose target: 120 Insulin time: 3 Previous medications for diabetes: Intolerant to metformin and glipizide stopped when she started insulin. Lantus prior to omnipod Today's visit: Patient presents today for routine diabetes followup. Last seen for diabetes by me 03/2023. She also follows with Dr Cunningham for thyroid. TIR:92% High:5% Very High:<1% Low: 2% Very Low: <1% Pump report and settings reviewed. Patient made errors when transferring her settings from PDM to her phone mao. Patient had entered her total daily basal as her hourly basal rate This was a 24x increase in the amount of insulin she should have received. Luckily she has been in automated basal mode 100% of the time and the pump did not revert to programmed basal rate. The patient had to over ride the max basal rate set in order to make this change. I advised the patient to contact me or [facility] if she has issues with setting changes. ___ Typical day/occupation: On disability Diet: Typically eats 3 meals daily. Breakfast: toast and diet coke zero. Lunch: 1/2 sandwich with turkey and yogurt. Supper: varies, cooks for children sometimes lots of noodles Exercise/activity: No regular exercise Hypertension and lipids managed by PCP Denies frequent periods of hypoglycemia. Patient verbalized understanding of the signs and symptoms of hypoglycemia and its treatment options. Important Diabetes Lab History: HBA1C: 01/2020 6.8%. 07/2020 6.5%. 01/2021 6.9%. 10/2021 6.6%. 12/2021 7.1%. 03/2022 7.3%. 08/2022 8.2%. 09/2022 6.8%. 12/2022 6.5%. 03/2023 6.6% Thyroid Function Testing: managed by Dr Cunningham TSH 12/2021 0.205 (currently taking synthroid 175mcg daily, holding once weekly) Renal Function Testin12/2021 creatinine 0.69 GFR >60 Urine for Microalbumin: 12/2018 Not detected Lipid Profile: 12/2021 TC 117 HDL 41 LDL 60 TG 82 Liver Profile: 12/2021 Alk Phos 82 AST 19 ALT 23 Important Diabetes Maintenance: Eye Exam: Patient educated to have ophthalmology visits at least once a year. Foot Exam: 06/2023 Review of Systems Constitutional: Negative for chills, diaphoresis, fever, malaise/fatigue and weight loss. HENT: Negative for congestion, nosebleeds and sore throat. Eyes: Negative for blurred vision, pain and discharge. Respiratory: Negative for cough, hemoptysis, sputum production, shortness of breath and wheezing. Cardiovascular: Positive for leg swelling. Negative for chest pain, palpitations and orthopnea. Gastrointestinal: Negative for abdominal pain, blood in stool, constipation, diarrhea, heartburn, nausea and vomiting. Genitourinary: Negative for dysuria, frequency, hematuria and urgency. Musculoskeletal: Positive for joint pain. Negative for back pain and myalgias. Skin: Negative for itching and rash. Neurological: Positive for tingling. Negative for dizziness, loss of consciousness and headaches. Endo/Heme/Allergies: Negative for polydipsia. Psychiatric/Behavioral: Positive for depression. Negative for suicidal ideas. The patient is nervous/anxious. The patient does not have insomnia. PAST MEDICAL HISTORY Diagnosis Date Asthma Depression Hyperlipidemia Hypothyroidism MAGALY (obstructive sleep apnea) Thyroid cancer (HCC) 12/26/2017 Type 2 diabetes mellitus (HCC) PAST SURGICAL HISTORY Procedure Laterality Date SECTION MULTI>2 CHOLECYSTECTOMY D AND C Diagnostic LAD INITIAL LAPAROSCOPIC FIBROID ABLATION PAST SURGICAL HISTORY OF x3 Bilateral PAST SURGICAL HISTORY OF Tendon repair and alignment PAST SURGICAL HISTORY OF Uterine surgery REMOVAL OF THYROID RHINOPLASTY TUBAL LIGATION HX FAMILY HISTORY Problem Relation Age of Onset Cataract Father Diabetes Father Cancer Father Prostate Leukemia Father Heart Attack Father other (Other) Father Abnormal Heart Beat Cataract Mother Diabetes Mother other (Other) Mother Abnormal Heart Baet Multiple Sclerosis Sister Cancer Sister Lung Diabetes Brother Detached Retina Brother Macular Degen Maternal Grandmother Diabetes Maternal Grandmother Diabetes Paternal Grandmother Social History Tobacco Use Smoki (more content not included)... [facility] 07-23-2023 Instructions Francie Britt, CAR PACKER.PHOTO RETOUCHER - 07/23/2023 10:48 AM EST Current medications for diabetes: Ozempic 2mg once weekly (Friday) Pump Settings: -- Pump Type: OP5 -- Insulin Type: humalog u200 Basal rate: Time 0.95 U/Hr Total Basal: 22.8 Carb ratio: 10 Insulin Sensitivity: 38 Blood glucose target: 120 --> 110 correct above 150 Insulin time: 3 documented in this encounter [facility] 07-23-2023 History of Presen t illness Narrative Rebecca Carty is a 52 year old female who presents for diabetes management. Timeline: Timeline: dx type 2 diabetes ~1999 Complications: (+) retinopathy, (+) neuropathy, (-) nephropathy Course: has been on insulin for several years. Has followed with Dr Irwin and Dr Cunningham. She continues to follow with Dr Cunningham for thyroid. First visit with [place] for diabetes management 03/2022. Current medications for diabetes: Ozempic 2mg once weekly (Friday) Pump Settings: -- Pump Type: OP5 -- Insulin Type: humalog u200 Basal rate: Time 0.95 U/Hr Total Basal: 22.8 Carb ratio: 10 Insulin Sensitivity: 38 Blood glucose target: 120 Insulin time: 3 Previous medications for diabetes: Intolerant to metformin and glipizide stopped when she started insulin. Lantus prior to omnipod Today's visit: Patient presents today for routine diabetes followup. Last seen for diabetes by me 03/2023. She also follows with Dr Cunningham for thyroid. TIR:92% High:5% Very High:<1% Low: 2% Very Low: <1% Pump report and settings reviewed. Patient made errors when transferring her settings from PDM to her phone mao. Patient had entered her total daily basal as her hourly basal rate This was a 24x increase in the amount of insulin she should have received. Luckily she has been in automated basal mode 100% of the time and the pump did not revert to programmed basal rate. The patient had to over ride the max basal rate set in order to make this change. I advised the patient to contact me or [facility] if she has issues with setting changes. ___ Typical day/occupation: On disability Diet: Typically eats 3 meals daily. Breakfast: toast and diet coke zero. Lunch: 1/2 sandwich with turkey and yogurt. Supper: varies, cooks for children sometimes lots of noodles Exercise/activity: No regular exercise Hypertension and lipids managed by PCP Denies frequent periods of hypoglycemia. Patient verbalized understanding of the signs and symptoms of hypoglycemia and its treatment options. Important Diabetes Lab History: HBA1C: 01/2020 6.8%. 07/2020 6.5%. 01/2021 6.9%. 10/2021 6.6%. 12/2021 7.1%. 03/2022 7.3%. 08/2022 8.2%. 09/2022 6.8%. 12/2022 6.5%. 03/2023 6.6% Thyroid Function Testing: managed by Dr Cunningham TSH 12/2021 0.205 (currently taking synthroid 175mcg daily, holding once weekly) Renal Function Testin12/2021 creatinine 0.69 GFR >60 Urine for Microalbumin: 12/2018 Not detected Lipid Profile: 12/2021 TC 117 HDL 41 LDL 60 TG 82 Liver Profile: 12/2021 Alk Phos 82 AST 19 ALT 23 Important Diabetes Maintenance: Eye Exam: Patient educated to have ophthalmology visits at least once a year. Foot Exam: 06/2023 Review of Systems Constitutional: Negative for chills, diaphoresis, fever, malaise/fatigue and weight loss. HENT: Negative for congestion, nosebleeds and sore throat. Eyes: Negative for blurred vision, pain and discharge. Respiratory: Negative for cough, hemoptysis, sputum production, shortness of breath and wheezing. Cardiovascular: Positive for leg swelling. Negative for chest pain, palpitations and orthopnea. Gastrointestinal: Negative for abdominal pain, blood in stool, constipation, diarrhea, heartburn, nausea and vomiting. Genitourinary: Negative for dysuria, frequency, hematuria and urgency. Musculoskeletal: Positive for joint pain. Negative for back pain and myalgias. Skin: Negative for itching and rash. Neurological: Positive for tingling. Negative for dizziness, loss of consciousness and headaches. Endo/Heme/Allergies: Negative for polydipsia. Psychiatric/Behavioral: Positive for depression. Negative for suicidal ideas. The patient is nervous/anxious. The patient does not have insomnia. PAST MEDICAL HISTORY Diagnosis Date Asthma Depression Hyperlipidemia Hypothyroidism MAGALY (obstructive sleep apnea) Thyroid cancer (HCC) 12/26/2017 Type 2 diabetes mellitus (HCC) PAST SURGICAL HISTORY Procedure Laterality Date SECTION MULTI>2 CHOLECYSTECTOMY D AND C Diagnostic LAD INITIAL LAPAROSCOPIC FIBROID ABLATION PAST SURGICAL HISTORY OF x3 Bilateral PAST SURGICAL HISTORY OF Tendon repair and alignment PAST SURGICAL HISTORY OF Uterine surgery REMOVAL OF THYROID RHINOPLASTY TUBAL LIGATION HX FAMILY HISTORY Problem Relation Age of Onset Cataract Father Diabetes Father Cancer Father Prostate Leukemia Father Heart Attack Father other (Other) Father Abnormal Heart Beat Cataract Mother Diabetes Mother other (Other) Mother Abnormal Heart Baet Multiple Sclerosis Sister Cancer Sister Lung Diabetes Brother Detached Retina Brother Macular Degen Maternal Grandmother Diabetes Maternal Grandmother Diabetes Paternal Grandmother Social History Tobacco Use Smoking status: Never Passive exposure: Past Smokeless tobacco: Never Vaping Use Vaping Use: Never used Substance Use Topics Alcohol use: Never Drug use: Never Current Meds OZEMPIC 2 mg/dose (8 mg/3 mL) pen injector INJECT 1 DOSE SUBCUTANEOUSLY ONCE A WEEK Blood-Glucose Sensor (DEXCOM G6 SENSOR) xavi Change sensor every 10 days Blood-Glucose Transmitter (DEXCOM G6 TRANSMITTER) xavi Change transmitter every 90 days levothyroxine (SYNTHROID) 200 mcg tablet TAKE 1 TABLET BY MOUTH ONCE DAILY duloxetine HCl (DULOXETINE ORAL) Take 90 mg by mouth once daily. Delayed release capsule OMNIPOD 5 G6 PODS, GEN 5, crtg Change pod every 48 hours. insulin lispro (HUMALOG KWIKPEN INSULIN) 200 unit/mL (3 mL) injection Inject 14 Units subcutaneously three times daily before meals. Inject on sliding scale three times daily with meals, max daily dose of 100u insulin glargine (LANTUS SOLOSTAR U-100 INSULIN) 100 unit/mL (3 mL) Inject 60 Units subcutaneously daily at bedtime. LANTUS NAME BRAND NOT GENERIC Blood-Glucose Meter,Continuous (DEXCOM G6 LITHOGRAPHIC STRIPPER) [facility] [place] use with dexcom g6 sensors fluconazole (DIFLUCAN) 150 mg tablet 1 tablet by mouth. Repeat in 3 days. OXcarbazepine (TRILEPTAL) 150 mg tablet Take 150 mg by mouth twice daily. pregabalin (LYRICA) 75 mg capsule Take 75 mg by mouth twice daily. aspirin 81 mg cap Take 1 capsule by mouth once daily. famotidine (PEPCID) 20 mg tablet LORazepam (ATIVAN) 0.5 mg Take by mouth. losartan (COZAAR) 25 mg tablet Take 25 mg by mouth once daily. albuterol (PROVENTIL) 2.5 mg/3 mL nebulizer solution Inhale 2.5 mg as instructed as directed. folic acid 1 mg tablet Take 1 mg by mouth once daily. montelukast (SINGULAIR) 10 mg tablet Take 10 mg by mouth daily at bedtime. Omeprazole 40 mg capsule Take 40 mg by mouth once daily. simvastatin (ZOCOR) 20 mg tablet Take 20 mg by mouth daily at bedtime. budesonide-formoterol (SYMBICORT) 160-4.5 mcg/actuation inhaler Inhale 2 Puffs as instructed twice daily. albuterol HFA (PROVENTIL HFA, VENTOLIN HFA) 90 mcg/actuation inhaler Inhale 2 Puffs as instructed every 6 hours as needed. Objective BP 123/84 (BP Site: Left Arm, BP Position: Sitting, BP Cuff Size: Large Adult) Pulse 76 Ht 165.1 cm (5' 5 ) Wt 119.8 kg (264 lb 3.2 oz) SpO2 98% BMI 43.97 kg/m Physical Exam Constitutional: General: She is not in acute distress. Appearance: She is obese. She is not ill-appearing or toxic-appearing. HENT: Head: Normocephalic and atraumatic. Eyes: General: No scleral icterus. Conjunctiva/sclera: Conjunctivae normal. Pupils: Pupils are equal, round, and reactive to light. Cardiovascular: Rate and Rhythm: Normal rate and regular rhythm. Heart sounds: Normal heart sounds. No murmur heard. Pulmonary: Effort: Pulmonary effort is normal. No respiratory distress. Breath sounds: Normal breath sounds. No wheezing or rales. Chest: Chest wall: No tenderness. Abdominal: General: There is no distension. Palpations: Abdomen is soft. Tenderness: There is no abdominal tenderness. There is no rebound. Musculoskeletal: General: No tenderness. Cervical back: Neck supple. Lymphadenopathy: Cervical: No cervical adenopathy. Skin: General: Skin is warm and dry. Findings: No rash. Neurological: Mental Status: She is alert and oriented to person, place, and time. Cranial Nerves: No cranial nerve deficit. Gait: Gait is intact. Comments: Feet:Shoes and socks removed, Are you having foot pain no, No deformities, ulcers, calluses, normal distal pulses, and sensitive to 10 gm monofilament Psychiatric: Mood and Affect: Mood and affect normal. Cognition and Memory: Memory normal. Judgment: Judgment normal. Plan ASSESSMENT/PLAN: 1. Type 2 diabetes mellitus with hyperglycemia, with long-term current use of insulin ([facility]) - ICD9: 250.00, 790.29, V58.67, ICD10: E11.65, Z79.4 (primary diagnosis) A1c 6.3% (done at PCP). Pump settings changed back for safety. Continue these settings. Continue ozempic, I did discuss ozempic with Dr Cunningham given her history of thyroid cancer and he is agreeable that ok to continue. - OMNIPOD 5 G6 PODS (GEN 5) SUBCUTANEOUS CARTRIDGE - HUMALOG KWIKPEN U-200 INSULIN 200 UNIT/ML (3 ML) SUBCUTANEOUS - DEXCOM G6 TRANSMITTER DEVICE - DEXCOM G6 SENSOR DEVICE 2. Class 3 severe obesity due to excess calories with serious comorbidity and body mass index (BMI) of 40.0 to 44.9 in adult ([facility]) - ICD9: 278.01, V85.41, ICD10: E66.01, Z68.41 Reduce carbs, increase exercise, weight loss as able. 3. High risk medication use - ICD9: V58.69, ICD10: Z79.899 insulin Plan of care: 1. HbA1C 6.3%, well controlled . 2. Medication changes: See below. Current medications for diabetes: Ozempic 2mg once weekly (Friday) Pump Settings: -- Pump Type: OP5 -- Insulin Type: humalog u200 Basal rate: Time 0.95 U/Hr Total Basal: 22.8 Carb ratio: 10 Insulin Sensitivity: 38 Blood glucose target: 120 --> 110 correct above 150 Insulin time: 3 3. Total time in direct patient contact = 30 min. Greater than 50% of the time was spent in counseling and/or coordination of care. 4. Self-monitoring blood glucose log sheets were given to the patient. Patient instructed to fill them out and bring to the next visit. 5. Comprehensive diabetic education provided. Answered all questions. 6. Educated patient on therapeutic lifestyle changes. 7. Patient verbalized understanding of all the above instructions. Some elements may have been copied from previous notes but have been updated where appropriate and all reflect current medical decision making from today Follow up: Return in about 3 months (around 10/23/2023). Francie Britt CNP 07/23/2023 2:01 PM documented in this encounter [facility] 07-03-2023 Miscellaneous Notes Discussed this with Dr Cunningham given her hx of thyroid CA and he is ok with continuing this therapy Francie Britt APRN, RAZA Pharmacy interfaced requesting the following refill. Requested Prescriptions Pending Prescriptions Disp Refills OZEMPIC 2 mg/dose (8 mg/3 mL) pen injector [Pharmacy Med Name: Ozempic (2 MG/DOSE) 8 MG/3ML Subcutaneous Solution Pen-injector] 9 mL 0 Sig: INJECT 1 DOSE SUBCUTANEOUSLY ONCE A WEEK Patient last appointment: 04/16/2023 Next Appointment: 07/23/2023 Patient Phone numbers: [phone] (home) Request is for script(s) to be escript to pharmacy. Courtney Herrera LPN documented in this encounter [facility] 07-02-2023 Note HNO ID: [id number] Author: Juan Cunningham MD Service: ? Author Type: Physician Type: Progress Notes Filed: 07/03/2023 7:59 AM Note Text: Subjective Machelle Friedman is a 52 year old female presenting for endocrinology follow-up for thyroid disease. (She also sees Francie Britt to manage diabetes type 2). Her most recent visit with me was 09/16. Thyroid cancer: Previous history: History of multinodular goiter. Had obstructive symptoms and opted for total thyroidectomy. Surgery performed @ [facility] 12/26/[address] Noe Motley. 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 Margins uninvolved by invasive cancer. 4 lymph nodes removed at the time of surgery, all four negative for thyroid cancer involvement. Previous endo notes: Had follow up with thyroid surgeon and a neck ultrasound 12/23/2018: ... Two distinct hypoechoic masses near the right thyroid bed. The more lateral measures approximately 1.2 x x 1.0 x 0.8 cm, the other superior mass measures approx 0.8 x 0.7 x 0.4 cm. A single hypoechoic mass is noted in the left thyroid bed measuring approx 06 x 0.6 x 0.5 cm. These nodules do not demonstrate internal doppler color flow or echogenic foci. She was referred to endo for evaluation of possible thyroid cancer recurrence. Thyroid labs revealed +Thyroglobulin 4.3 ng/mL with a TSH of 7.3 Levothyroxine increased to 175 mcg every day with an extra full tablet one day of the week. Follow up blood work revealed TSH of 0.203 and Thyroglobulin undetectable <0.2 - Patient was offered both observation with TSH suppression and frequent neck ultrasound and thyroglobulin levels versus remnant ablation. The patient opted for remnant ablation. - ARTHUR ablation with 36.1 mCi I-131 in [facility] 06/09/2019. Tg was 1.0 on 08/27/2019 with a TSH of 0.016 and Tg Ab of 13 Neck US done 09/02/2019 @ [facility] (see scanned documents): No definite recurrent mass and one small (7 mm on the left neck and 10 mm on the right neck) without significant increased in blood flow or calcification. Last TG level from 03/01/2020 was 0.3 with a TSH of 0.027 on 02/28/2020 (not obtained on the same day due to lab error). Thyroglobulin <0.2 02/12, <0.2 06/14, 8.7 01/13, 0.7 09/16, 0.3 01/14, 0.1 06/16 - neck ultrasound 11/12 at [place] without malignant pathology (report scanned into [employer]). - neck ultrasound here 09/16 no abnormalities seen Hypothyroidism: Current levothyroxine dose 200 mcg daily (increased 09/16). TSH 0.356 02/12, 0.2 01/13, 8.8 09/16, 1.1 09/16, 2.4 01/14, 0.217 06/16 Component Latest Ref Rng AND Units 01/13/2023 06/23/2023 Thyroglobulin Ab, Serum <4.0 IU/mL <0.9 <0.9 Thyroglobulin, Serum 1.6 - 50.0 ng/mL 0.3 (L) 0.1 (L) TSH 0.270 - 4.200 mIU/L 2.480 0.217 (L) Free T4 0.9 - 1.7 ng/dL 1.2 1.3 Free T3 2.3 - 4.1 pg/mL 3.0 2.9 Review of Systems Constitutional: Negative for chills, diaphoresis, fever, malaise/fatigue and weight loss. HENT: Negative for congestion, ear discharge, ear pain, hearing loss, nosebleeds, sinus pain, sore throat and tinnitus. Eyes: Negative for blurred vision, double vision, photophobia, pain, discharge and redness. Respiratory: Negative for cough, hemoptysis, sputum production, shortness of breath, wheezing and stridor. Cardiovascular: Positive for leg swelling. Negative for chest pain, palpitations, orthopnea, claudication and PND. Gastrointestinal: Positive for constipation. Negative for abdominal pain, blood in stool, diarrhea, heartburn, melena, nausea and vomiting. Genitourinary: Negative for dysuria, flank pain, frequency, hematuria and urgency. Musculoskeletal: Positive for joint pain. Negative for back pain, falls, myalgias and neck pain. Skin: Negative for itching and rash. Neurological: Positive for tingling. Negative for dizziness, tremors, sensory change, speech change, focal weakness, seizures, loss of consciousness, weakness and headaches. Endo/Heme/Allergies: Negative for environmental allergies and polydipsia. Does not bruise/bleed easily. Psychiatric/Behavioral: Positive for depression. Negative for hallucinations, memory loss, substance abuse and suicidal ideas. The patient is nervous/anxious. The patient does not have insomnia. PAST MEDICAL HISTORY Diagnosis Date Asthma Depression Hyperlipidemia Hypothyroidism MAGALY (obstructive sleep apnea) Thyroid cancer (HCC) 12/26/2017 Type 2 diabetes mellitus (HCC) PAST SURGICAL HISTORY Procedure Laterality Date SECTION MULTI>2 CHOLECYSTECTOMY D AND C Diagnostic LAD INITIAL LAPAROSCOPIC FIBROID ABLATION PAST SURGICAL HISTORY OF x3 Bilateral PAST SURGICAL HISTORY OF Tendon repair and alignment PAST SURGICAL HISTORY OF Uterine surgery REMOVAL OF THYROID RHINOPLASTY TUBAL LIGATION HX FAMILY HISTORY Problem Relation Age of Onset Cataract Father Diabetes Father Cancer Father (more content not included)... [facility] 07-02-2023 History of Presen t illness Narrative Subjective Machelle Friedman is a 52 year old female presenting for endocrinology follow-up for thyroid disease. (She also sees Francie Folk to manage diabetes type 2). Her most recent visit with me was 09/16. Thyroid cancer: Previous history: History of multinodular goiter. Had obstructive symptoms and opted for total thyroidectomy. Surgery performed @ [facility] 12/26/[address] Noe Motley. 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 Margins uninvolved by invasive cancer. 4 lymph nodes removed at the time of surgery, all four negative for thyroid cancer involvement. Previous endo notes: Had follow up with thyroid surgeon and a neck ultrasound 12/23/2018: ... Two distinct hypoechoic masses near the right thyroid bed. The more lateral measures approximately 1.2 x x 1.0 x 0.8 cm, the other superior mass measures approx 0.8 x 0.7 x 0.4 cm. A single hypoechoic mass is noted in the left thyroid bed measuring approx 06 x 0.6 x 0.5 cm. These nodules do not demonstrate internal doppler color flow or echogenic foci. She was referred to endo for evaluation of possible thyroid cancer recurrence. Thyroid labs revealed +Thyroglobulin 4.3 ng/mL with a TSH of 7.3 Levothyroxine increased to 175 mcg every day with an extra full tablet one day of the week. Follow up blood work revealed TSH of 0.203 and Thyroglobulin undetectable <0.2 - Patient was offered both observation with TSH suppression and frequent neck ultrasound and thyroglobulin levels versus remnant ablation. The patient opted for remnant ablation. - ARTHUR ablation with 36.1 mCi I-131 in [facility] 06/09/2019. Tg was 1.0 on 08/27/2019 with a TSH of 0.016 and Tg Ab of 13 Neck US done 09/02/2019 @ [facility] (see scanned documents): No definite recurrent mass and one small (7 mm on the left neck and 10 mm on the right neck) without significant increased in blood flow or calcification. Last TG level from 03/01/2020 was 0.3 with a TSH of 0.027 on 02/28/2020 (not obtained on the same day due to lab error). Thyroglobulin <0.2 02/12, <0.2 06/14, 8.7 01/13, 0.7 09/16, 0.3 01/14, 0.1 06/16 - neck ultrasound 11/12 at [place] without malignant pathology (report scanned into [facility]). - neck ultrasound here 09/16 no abnormalities seen Hypothyroidism: Current levothyroxine dose 200 mcg daily (increased 09/16). TSH 0.356 02/12, 0.2 01/13, 8.8 09/16, 1.1 09/16, 2.4 01/14, 0.217 06/16 Component Latest Ref Rng & Units 01/13/2023 06/23/2023 Thyroglobulin Ab, Serum <4.0 IU/mL <0.9 <0.9 Thyroglobulin, Serum 1.6 - 50.0 ng/mL 0.3 (L) 0.1 (L) TSH 0.270 - 4.200 mIU/L 2.480 0.217 (L) Free T4 0.9 - 1.7 ng/dL 1.2 1.3 Free T3 2.3 - 4.1 pg/mL 3.0 2.9 Review of Systems Constitutional: Negative for chills, diaphoresis, fever, malaise/fatigue and weight loss. HENT: Negative for congestion, ear discharge, ear pain, hearing loss, nosebleeds, sinus pain, sore throat and tinnitus. Eyes: Negative for blurred vision, double vision, photophobia, pain, discharge and redness. Respiratory: Negative for cough, hemoptysis, sputum production, shortness of breath, wheezing and stridor. Cardiovascular: Positive for leg swelling. Negative for chest pain, palpitations, orthopnea, claudication and PND. Gastrointestinal: Positive for constipation. Negative for abdominal pain, blood in stool, diarrhea, heartburn, melena, nausea and vomiting. Genitourinary: Negative for dysuria, flank pain, frequency, hematuria and urgency. Musculoskeletal: Positive for joint pain. Negative for back pain, falls, myalgias and neck pain. Skin: Negative for itching and rash. Neurological: Positive for tingling. Negative for dizziness, tremors, sensory change, speech change, focal weakness, seizures, loss of consciousness, weakness and headaches. Endo/Heme/Allergies: Negative for environmental allergies and polydipsia. Does not bruise/bleed easily. Psychiatric/Behavioral: Positive for depression. Negative for hallucinations, memory loss, substance abuse and suicidal ideas. The patient is nervous/anxious. The patient does not have insomnia. PAST MEDICAL HISTORY Diagnosis Date Asthma Depression Hyperlipidemia Hypothyroidism MAGALY (obstructive sleep apnea) Thyroid cancer (HCC) 12/26/2017 Type 2 diabetes mellitus (HCC) PAST SURGICAL HISTORY Procedure Laterality Date SECTION MULTI>2 CHOLECYSTECTOMY D AND C Diagnostic LAD INITIAL LAPAROSCOPIC FIBROID ABLATION PAST SURGICAL HISTORY OF x3 Bilateral PAST SURGICAL HISTORY OF Tendon repair and alignment PAST SURGICAL HISTORY OF Uterine surgery REMOVAL OF THYROID RHINOPLASTY TUBAL LIGATION HX FAMILY HISTORY Problem Relation Age of Onset Cataract Father Diabetes Father Cancer Father Prostate Leukemia Father Heart Attack Father other (Other) Father Abnormal Heart Beat Cataract Mother Diabetes Mother other (Other) Mother Abnormal Heart Baet Multiple Sclerosis Sister Cancer Sister Lung Diabetes Brother Detached Retina Brother Macular Degen Maternal Grandmother Diabetes Maternal Grandmother Diabetes Paternal Grandmother Social History Tobacco Use Smoking status: Never Passive exposure: Past Smokeless tobacco: Never Vaping Use Vaping Use: Never used Substance Use Topics Alcohol use: Never Drug use: Never Current Meds duloxetine HCl (DULOXETINE ORAL) Take 60 mg by mouth once daily. Delayed release capsule OMNIPOD 5 G6 PODS, GEN 5, crtg Change pod every 48 hours. Blood-Glucose Sensor (DEXCOM G6 SENSOR) xavi Change sensor every 10 days insulin lispro (HUMALOG KWIKPEN INSULIN) 200 unit/mL (3 mL) injection Inject 14 Units subcutaneously three times daily before meals. Inject on sliding scale three times daily with meals, max daily dose of 100u Blood-Glucose Transmitter (DEXCOM G6 TRANSMITTER) xavi Change transmitter every 90 days semaglutide (OZEMPIC) 2 mg/dose (8 mg/3 mL) pen injector Inject 2 mg subcutaneously one time a week. levothyroxine (SYNTHROID) 200 mcg tablet TAKE 1 TABLET BY MOUTH ONCE DAILY insulin glargine (LANTUS SOLOSTAR U-100 INSULIN) 100 unit/mL (3 mL) Inject 60 Units subcutaneously daily at bedtime. LANTUS NAME BRAND NOT GENERIC Blood-Glucose Meter,Continuous (DEXCOM G6 LITHOGRAPHIC STRIPPER) [facility] [place] use with dexcom g6 sensors fluconazole (DIFLUCAN) 150 mg tablet 1 tablet by mouth. Repeat in 3 days. OXcarbazepine (TRILEPTAL) 150 mg tablet Take 150 mg by mouth twice daily. pregabalin (LYRICA) 75 mg capsule Take 75 mg by mouth twice daily. aspirin 81 mg cap Take 1 capsule by mouth once daily. famotidine (PEPCID) 20 mg tablet LORazepam (ATIVAN) 0.5 mg Take by mouth. losartan (COZAAR) 25 mg tablet Take 25 mg by mouth once daily. albuterol (PROVENTIL) 2.5 mg/3 mL nebulizer solution Inhale 2.5 mg as instructed as directed. folic acid 1 mg tablet Take 1 mg by mouth once daily. montelukast (SINGULAIR) 10 mg tablet Take 10 mg by mouth daily at bedtime. Omeprazole 40 mg capsule Take 40 mg by mouth once daily. simvastatin (ZOCOR) 20 mg tablet Take 20 mg by mouth daily at bedtime. budesonide-formoterol (SYMBICORT) 160-4.5 mcg/actuation inhaler Inhale 2 Puffs as instructed twice daily. albuterol HFA (PROVENTIL HFA, VENTOLIN HFA) 90 mcg/actuation inhaler Inhale 2 Puffs as instructed every 6 hours as needed. Objective BP 123/86 Pulse 90 Ht 165.1 cm (5' 5 ) Wt 115.2 kg (254 lb) SpO2 98% BMI 42.27 kg/m Physical Exam Constitutional: General: She is not in acute distress. Appearance: Normal appearance. HENT: Head: Normocephalic and atraumatic. Eyes: General: No scleral icterus. Conjunctiva/sclera: Conjunctivae normal. Pupils: Pupils are equal, round, and reactive to light. Neck: Thyroid: No thyromegaly. Trachea: No tracheal deviation. Cardiovascular: Rate and Rhythm: Normal rate and regular rhythm. Heart sounds: Normal heart sounds. Pulmonary: Effort: Pulmonary effort is normal. No respiratory distress. Breath sounds: Normal breath sounds. Musculoskeletal: General: No tenderness or deformity. Cervical back: Neck supple. Lymphadenopathy: Cervical: No cervical adenopathy. Skin: General: Skin is warm and dry. Findings: No rash. Neurological: General: No focal deficit present. Mental Status: She is alert and oriented to person, place, and time. Gait: Gait is intact. Psychiatric: Mood and Affect: Mood and affect normal. Behavior: Behavior normal. Cognition and Memory: Memory normal. Judgment: Judgment normal. Assesment / Plans: (Some elements may be copied from previous notes, which have been updated where appropriate, and all reflect current medical decision making from today.) ASSESSMENT/PLAN: 1. Papillary microcarcinoma of thyroid (HCC) - ICD9: 193, ICD10: C73 (primary diagnosis) - clinically stable with low thyroglobulin (with non-suppressed TSH). No evidence of disease on neck us 09/16. Continue monitoring with periodic neck ultrasounds and thyroglobulin measurements. Most likely neck us at next visit - LEVOTHYROXINE 200 MCG TABLET - THYROGLOBULIN, SERUM WITH REFLEX TO IA OR LC-MS/MS 2. Acquired hypothyroidism - ICD9: 244.9, ICD10: E03.9 - TSH 0.2 in better range with most recent levothyroxine medication adjustment - LEVOTHYROXINE 200 MCG TABLET - TSH BLD - T4 FREE/FREE THYROX - T3 FREE BLD 3. Gastroesophageal reflux disease, unspecified whether esophagitis present - ICD9: 530.81, ICD10: K21.9 - she is having some cervical dysphagia. This is almost certainly GI in nature (as opposed to related to her thyroid cancer, which is has no evidence of clinical disease). I advised her to follow-up with GI if it persists for further workup / treatment Electronically signed by Juan Cunningham MD July 03, 2023 7:44 AM documented in this encounter [facility] 05-12-2023 Miscellaneous Notes Summary: 1st attempt PCP ref into program 1st call LVM documented in this encounter [facility] 05-08-[address] M[address] Please place consult to obesity med at [facility] please Francie Britt APRN, RAZA documented in this encounter [facility] 05-08-2023 Miscellaneous Notes Pt lvm and Mychart message in regards to her weight management referral. Please advise. Candelaria Zamora documented in this encounter [facility] 04-23-2023 Miscellaneous Notes We received a new patient referral. Called and spoke with patient regarding upcoming appointments with Dr. Cunningham and Francie Britt. Patient clarified and states the doctor was faxing her lab results for review says there are some issues. Please advise. Deepti Vazquez April 23, 2023 10:45 AM documented in this encounter [facility] 04-16-2023 Note HNO ID: [id number] Author: Francie Britt APRN.CNP Service: ? Author Type: Nurse Practitioner Type: Progress Notes Filed: 04/16/2023 1:50 PM Note Text: Rebecca Carty is a 52 year old female who presents for diabetes management. Timeline: Timeline: dx type 2 diabetes ~1999 Complications: (+) retinopathy, (+) neuropathy, (-) nephropathy Course: has been on insulin for several years. Has followed with Dr Irwin and Dr Cunningham. She continues to follow with Dr Cunningham for thyroid. First visit with [place] for diabetes management 03/2022. Current medications for diabetes: Ozempic 1mg once weekly (Friday) Pump Settings: -- Pump Type: OP5 -- Insulin Type: humalog Basal rate: Time 0.95 U/Hr Total Basal: 22.8 Carb ratio: 10 Insulin Sensitivity: 38 Blood glucose target: 120 Insulin time: 3 Previous medications for diabetes: Intolerant to metformin and glipizide stopped when she started insulin. Lantus prior to omnipod Today's visit: Patient presents today for routine diabetes followup. Last seen 12/2022. A1c remains well controlled. Continues to do well with insulin pump and CGM. TIR:85% High:13% Very High:1% Low: 1% Very Low: 0% GMI 6.7% ___ Typical day/occupation: On disability Diet: Typically eats 3 meals daily. Breakfast: toast and diet coke zero. Lunch: 1/2 sandwich with turkey and yogurt. Supper: varies, cooks for children sometimes lots of noodles Exercise/activity: No regular exercise Hypertension and lipids managed by PCP Denies frequent periods of hypoglycemia. Patient verbalized understanding of the signs and symptoms of hypoglycemia and its treatment options. Important Diabetes Lab History: HBA1C: 01/2020 6.8%. 07/2020 6.5%. 01/2021 6.9%. 10/2021 6.6%. 12/2021 7.1%. 03/2022 7.3%. 08/2022 8.2%. 09/2022 6.8%. 12/2022 6.5%. 03/2023 6.6% Thyroid Function Testing: managed by Dr Cunningham TSH 12/2021 0.205 (currently taking synthroid 175mcg daily, holding once weekly) Renal Function Testin12/2021 creatinine 0.69 GFR >60 Urine for Microalbumin: 12/2018 Not detected Lipid Profile: 12/2021 TC 117 HDL 41 LDL 60 TG 82 Liver Profile: 12/2021 Alk Phos 82 AST 19 ALT 23 Important Diabetes Maintenance: Eye Exam: Patient educated to have ophthalmology visits at least once a year. Foot Exam: 03/2022 Review of Systems Constitutional: Negative for chills, diaphoresis, fever, malaise/fatigue and weight loss. HENT: Negative for congestion, nosebleeds and sore throat. Eyes: Negative for blurred vision, pain and discharge. Respiratory: Negative for cough, hemoptysis, sputum production, shortness of breath and wheezing. Cardiovascular: Positive for leg swelling. Negative for chest pain, palpitations and orthopnea. Gastrointestinal: Negative for abdominal pain, blood in stool, constipation, diarrhea, heartburn, nausea and vomiting. Genitourinary: Negative for dysuria, frequency, hematuria and urgency. Musculoskeletal: Negative for back pain, joint pain and myalgias. Skin: Negative for itching and rash. Neurological: Positive for tingling. Negative for dizziness, loss of consciousness and headaches. Endo/Heme/Allergies: Negative for polydipsia. Psychiatric/Behavioral: Positive for depression. Negative for suicidal ideas. The patient is nervous/anxious. The patient does not have insomnia. PAST MEDICAL HISTORY Diagnosis Date Asthma Depression Hyperlipidemia Hypothyroidism MAGALY (obstructive sleep apnea) Thyroid cancer (HCC) 12/26/2017 Type 2 diabetes mellitus (HCC) PAST SURGICAL HISTORY Procedure Laterality Date SECTION MULTI>2 CHOLECYSTECTOMY D AND C Diagnostic LAD INITIAL LAPAROSCOPIC FIBROID ABLATION PAST SURGICAL HISTORY OF x3 Bilateral PAST SURGICAL HISTORY OF [place] repair and alignment PAST SURGICAL HISTORY OF Uterine surgery REMOVAL OF THYROID RHINOPLASTY TUBAL LIGATION HX FAMILY HISTORY Problem Relation Age of Onset Cataract Father Diabetes Father Cancer Father Prostate Leukemia Father Heart Attack Father other (Other) Father Abnormal Heart Beat Cataract Mother Diabetes Mother other (Other) Mother Abnormal Heart Baet Multiple Sclerosis Sister Cancer Sister Lung Diabetes Brother Detached Retina Brother Macular Degen Maternal Grandmother Diabetes Maternal Grandmother Diabetes Paternal Grandmother Social History Tobacco Use Smoking status: Never Passive exposure: Past Smokeless tobacco: Never Vaping Use Vaping Use: Never used Substance Use Topics Alcohol use: Never Drug use: Never Current Meds duloxetine HCl (DULOXETINE ORAL) Take 60 mg by mouth once daily. Delayed release capsule Blood-Glucose Transmitter (DEXCOM G6 TRANSMITTER) xavi Change transmitter every 90 days semaglutide (OZEMPIC) 2 mg/dose (8 mg/3 mL) pen injector Inject 2 mg subcutaneously one time a week. levothyroxine (SYNTHROID) 200 mcg tablet TAKE 1 TABLET BY MOUTH ONCE DAILY insulin (more content not included)... [facility] 04-16-2023 Instructions Francie Britt APRN.CNP - 04/16/2023 10:41 AM EDT Ozempic 2mg once weekly (Friday) Pump Settings: -- Pump Type: OP5 -- Insulin Type: humalog Basal rate: Time 0.95 U/Hr Total Basal: 22.8 Carb ratio: 10 Insulin Sensitivity: 38 Blood glucose target: 120 Insulin time: 3 documented in this encounter [facility] 04-16-2023 History of Presen t illness Narrative Rebecca Carty is a 52 year old female who presents for diabetes management. Timeline: Timeline: dx type 2 diabetes ~1999 Complications: (+) retinopathy, (+) neuropathy, (-) nephropathy Course: has been on insulin for several years. Has followed with Dr Irwin and Dr Cunningham. She continues to follow with Dr Cunningham for thyroid. First visit with me for diabetes management 03/2022. Current medications for diabetes: Ozempic 1mg once weekly (Friday) Pump Settings: -- Pump Type: OP5 -- Insulin Type: humalog Basal rate: Time 0.95 U/Hr Total Basal: 22.8 Carb ratio: 10 Insulin Sensitivity: 38 Blood glucose target: 120 Insulin time: 3 Previous medications for diabetes: Intolerant to metformin and glipizide stopped when she started insulin. Lantus prior to omnipod Today's visit: Patient presents today for routine diabetes followup. Last seen 12/2022. A1c remains well controlled. Continues to do well with insulin pump and CGM. TIR:85% High:13% Very High:1% Low: 1% Very Low: 0% GMI 6.7% ___ Typical day/occupation: On disability Diet: Typically eats 3 meals daily. Breakfast: toast and diet coke zero. Lunch: 1/2 sandwich with turkey and yogurt. Supper: varies, cooks for children sometimes lots of noodles Exercise/activity: No regular exercise Hypertension and lipids managed by PCP Denies frequent periods of hypoglycemia. Patient verbalized understanding of the signs and symptoms of hypoglycemia and its treatment options. Important Diabetes Lab History: HBA1C: 01/2020 6.8%. 07/2020 6.5%. 01/2021 6.9%. 10/2021 6.6%. 12/2021 7.1%. 03/2022 7.3%. 08/2022 8.2%. 09/2022 6.8%. 12/2022 6.5%. 03/2023 6.6% Thyroid Function Testing: managed by Dr Cunningham TSH 12/2021 0.205 (currently taking synthroid 175mcg daily, holding once weekly) Renal Function Testin12/2021 creatinine 0.69 GFR >60 Urine for Microalbumin: 12/2018 Not detected Lipid Profile: 12/2021 TC 117 HDL 41 LDL 60 TG 82 Liver Profile: 12/2021 Alk Phos 82 AST 19 ALT 23 Important Diabetes Maintenance: Eye Exam: Patient educated to have ophthalmology visits at least once a year. Foot Exam: 03/2022 Review of Systems Constitutional: Negative for chills, diaphoresis, fever, malaise/fatigue and weight loss. HENT: Negative for congestion, nosebleeds and sore throat. Eyes: Negative for blurred vision, pain and discharge. Respiratory: Negative for cough, hemoptysis, sputum production, shortness of breath and wheezing. Cardiovascular: Positive for leg swelling. Negative for chest pain, palpitations and orthopnea. Gastrointestinal: Negative for abdominal pain, blood in stool, constipation, diarrhea, heartburn, nausea and vomiting. Genitourinary: Negative for dysuria, frequency, hematuria and urgency. Musculoskeletal: Negative for back pain, joint pain and myalgias. Skin: Negative for itching and rash. Neurological: Positive for tingling. Negative for dizziness, loss of consciousness and headaches. Endo/Heme/Allergies: Negative for polydipsia. Psychiatric/Behavioral: Positive for depression. Negative for suicidal ideas. The patient is nervous/anxious. The patient does not have insomnia. PAST MEDICAL HISTORY Diagnosis Date Asthma Depression Hyperlipidemia Hypothyroidism MAGALY (obstructive sleep apnea) Thyroid cancer (HCC) 12/26/2017 Type 2 diabetes mellitus (HCC) PAST SURGICAL HISTORY Procedure Laterality Date SECTION MULTI>2 CHOLECYSTECTOMY D AND C Diagnostic LAD INITIAL LAPAROSCOPIC FIBROID ABLATION PAST SURGICAL HISTORY OF x3 Bilateral PAST SURGICAL HISTORY OF [place] repair and alignment PAST SURGICAL HISTORY OF Uterine surgery REMOVAL OF THYROID RHINOPLASTY TUBAL LIGATION HX FAMILY HISTORY Problem Relation Age of Onset Cataract Father Diabetes Father Cancer Father Prostate Leukemia Father Heart Attack Father other (Other) Father Abnormal Heart Beat Cataract Mother Diabetes Mother other (Other) Mother Abnormal Heart Baet Multiple Sclerosis Sister Cancer Sister Lung Diabetes Brother Detached Retina Brother Macular Degen Maternal Grandmother Diabetes Maternal Grandmother Diabetes Paternal Grandmother Social History Tobacco Use Smoking status: Never Passive exposure: Past Smokeless tobacco: Never Vaping Use Vaping Use: Never used Substance Use Topics Alcohol use: Never Drug use: Never Current Meds duloxetine HCl (DULOXETINE ORAL) Take 60 mg by mouth once daily. Delayed release capsule Blood-Glucose Transmitter (DEXCOM G6 TRANSMITTER) xavi Change transmitter every 90 days semaglutide (OZEMPIC) 2 mg/dose (8 mg/3 mL) pen injector Inject 2 mg subcutaneously one time a week. levothyroxine (SYNTHROID) 200 mcg tablet TAKE 1 TABLET BY MOUTH ONCE DAILY insulin glargine (LANTUS SOLOSTAR U-100 INSULIN) 100 unit/mL (3 mL) Inject 60 Units subcutaneously daily at bedtime. LANTUS NAME BRAND NOT GENERIC Blood-Glucose Meter,Continuous (DEXCOM G6 LITHOGRAPHIC STRIPPER) [facility] [place] use with dexcom g6 sensors fluconazole (DIFLUCAN) 150 mg tablet 1 tablet by mouth. Repeat in 3 days. OXcarbazepine (TRILEPTAL) 150 mg tablet Take 150 mg by mouth twice daily. pregabalin (LYRICA) 75 mg capsule Take 75 mg by mouth twice daily. aspirin 81 mg cap Take 1 capsule by mouth once daily. famotidine (PEPCID) 20 mg tablet LORazepam (ATIVAN) 0.5 mg Take by mouth. losartan (COZAAR) 25 mg tablet Take 25 mg by mouth once daily. albuterol (PROVENTIL) 2.5 mg/3 mL nebulizer solution Inhale 2.5 mg as instructed as directed. folic acid 1 mg tablet Take 1 mg by mouth once daily. montelukast (SINGULAIR) 10 mg tablet Take 10 mg by mouth daily at bedtime. Omeprazole 40 mg capsule Take 40 mg by mouth once daily. simvastatin (ZOCOR) 20 mg tablet Take 20 mg by mouth daily at bedtime. budesonide-formoterol (SYMBICORT) 160-4.5 mcg/actuation inhaler Inhale 2 Puffs as instructed twice daily. albuterol HFA (PROVENTIL HFA, VENTOLIN HFA) 90 mcg/actuation inhaler Inhale 2 Puffs as instructed every 6 hours as needed. OMNIPOD 5 G6 PODS, GEN 5, crtg Change pod every 48 hours. Blood-Glucose Sensor (DEXCOM G6 SENSOR) xavi Change sensor every 10 days insulin lispro (HUMALOG KWIKPEN INSULIN) 200 unit/mL (3 mL) injection Inject 14 Units subcutaneously three times daily before meals. Inject on sliding scale three times daily with meals, max daily dose of 100u TRINTELLIX 10 mg tablet 20 mg. (Patient not taking: Reported on 04/16/2023) vortioxetine (TRINTELLIX) 5 mg tablet Take 5 mg by mouth once daily. Objective BP 111/75 (BP Site: Right Arm, BP Position: Sitting, BP Cuff Size: Large Adult) Pulse 83 Ht 165.1 cm (5' 5 ) Wt 120.7 kg (266 lb 3.2 oz) SpO2 95% BMI 44.30 kg/m Physical Exam Constitutional: General: She is not in acute distress. Appearance: She is obese. She is not ill-appearing or toxic-appearing. HENT: Head: Normocephalic and atraumatic. Eyes: General: No scleral icterus. Conjunctiva/sclera: Conjunctivae normal. Pupils: Pupils are equal, round, and reactive to light. Cardiovascular: Rate and Rhythm: Normal rate and regular rhythm. Heart sounds: Normal heart sounds. No murmur heard. Pulmonary: Effort: Pulmonary effort is normal. No respiratory distress. Breath sounds: Normal breath sounds. No wheezing or rales. Chest: Chest wall: No tenderness. Abdominal: General: There is no distension. Palpations: Abdomen is soft. Tenderness: There is no abdominal tenderness. There is no rebound. Musculoskeletal: General: No tenderness. Cervical back: Neck supple. Lymphadenopathy: Cervical: No cervical adenopathy. Skin: General: Skin is warm and dry. Findings: No rash. Neurological: Mental Status: She is alert and oriented to person, place, and time. Cranial Nerves: No cranial nerve deficit. Gait: Gait is intact. Psychiatric: Mood and Affect: Mood and affect normal. Cognition and Memory: Memory normal. Judgment: Judgment normal. Plan ASSESSMENT/PLAN: 1. Type 2 diabetes mellitus with hyperglycemia, with long-term current use of insulin ([facility]) - ICD9: 250.00, 790.29, V58.67, ICD10: E11.65, Z79.4 (primary diagnosis) A1c 6.6%. Well controlled on current pump settings. Continue - HEMOGLOBIN A1C (POC) - OMNIPOD 5 G6 PODS (GEN 5) SUBCUTANEOUS CARTRIDGE - DEXCOM G6 SENSOR DEVICE - HUMALOG KWIKPEN U-200 INSULIN 200 UNIT/ML (3 ML) SUBCUTANEOUS 2. Class 3 severe obesity due to excess calories with serious comorbidity and body mass index (BMI) of 40.0 to 44.9 in adult ([facility]) - ICD9: 278.01, V85.41, ICD10: E66.01, Z68.41 Following with Obesity medicine 3. High risk medication use - ICD9: V58.69, ICD10: Z79.899 Insulin via pump - continue Plan of care: 1. HbA1C 6.6%, well controlled. 2. Medication changes: See below. Ozempic 2mg once weekly (Friday) Pump Settings: -- Pump Type: OP5 -- Insulin Type: humalog Basal rate: Time 0.95 U/Hr Total Basal: 22.8 Carb ratio: 10 Insulin Sensitivity: 38 Blood glucose target: 120 Insulin time: 3 3. Total time in direct patient contact = 30 min. Greater than 50% of the time was spent in counseling and/or coordination of care. 4. Self-monitoring blood glucose log sheets were given to the patient. Patient instructed to fill them out and bring to the next visit. 5. Comprehensive diabetic education provided. Answered all questions. 6. Educated patient on therapeutic lifestyle changes. 7. Patient verbalized understanding of all the above instructions. Some elements may have been copied from previous notes but have been updated where appropriate and all reflect current medical decision making from today Follow up: Return in about 3 months (around 07/17/2023). Francie Britt CNP 04/16/2023 1:47 PM documented in this encounter [facility] 03-26-2023 Note HNO ID: [id number] Author: Val Corbett RD Service: ? Author Type: Registered Dietitian Type: Progress Notes Filed: 03/26/2023 11:47 AM Note Text: DIABETES SELF-MANAGEMENT EDUCATION AND SUPPORT MNT note Location: [place] Type of visit: In person individual Types of DSMES: Initial/Comprehensive (add to or update ADA spreadsheet) PATIENT'S MAIN CONCERN TODAY: info and loss wt Support person present for education today: none Cognitive ability: Alert and oriented Motivation to learn: Interested Learning barriers identified by educator: none Method of instruction: written, verbal, and demonstration INTERVENTIONS/TOPICS COVERED: -Diabetes Pathophysiology: insulin resistance and hepatic glucose release -Monitoring: BG targets -Healthy Eating: impact of carbs on BG, basic carb counting, foods with carbs, portion sizes, fiber, reading food labels, recommendation for 45 g carb per meal, eating out, carb counting tools (books, Internet, smartphone apps), healthy heart options, and using an ICR to determine prandial insulin dosing-ICR 1:10, regular meals for both DM control and wt loss -Medications: reviewed home DM meds, basal insulin, prandial insulin, and pump use for ICR< CF< IOB -Physical Activity: benefits of exercise, impact of exercise on BG, types of exercise, and especially with a bad foot -Acute Complications: hypoglycemia s/sx/tx, hyperglycemia s/sx/tx, and pattern management DIABETES ASSESSMENT: Referring Physician: Rey Figueroa Previous Diabetes Education? Yes, if so when? >5 yrs What are you hoping to gain from this visit? help In your words, what is diabetes? asked/not answered What concerns you about having diabetes? problems Diabetes History: Type of Diabetes: Type 2 What year were you diagnosed? 24yrs ago Does anyone in your family have diabetes? yes How do you learn best? observing and doing Demographics: Highest level of education: Trade school or Associates degree Race/Ethnic Origin: White/ Does your culture or jainism require any of the following: No cultural/moravian practices affecting DM Do you have problems with: Walking Occupation: disability Work hours: na Support System: How often does someone help you read hospital materials? rarely How often does someone help you read your pill bottles? rarely How often does someone have to help you take care of your diabetes? rarely Major stressors:alot How do you manage stress? [place]. Take one day at a time, counselor, aqua therapy Do any of the following things get in the way of managing your diabetes? No self-identified issues Health History: Most recent eye exam: 2022 Most recent dental exam:needs to find one that take her insurance Most recent foot exam:1-3 mos How often do you inspect your feet at home? Daily Do you use tobacco? No Do you use alcohol? No In the past 12 months have you had any: Hospital Admissions: No ER Visits: No Primary Care Visits: Yes, Number of Times? 4 What are your general feelings about you overall health? Poor Medical Issues/Complications: see below PAST MEDICAL HISTORY Diagnosis Date Asthma Depression Hyperlipidemia Hypothyroidism MAGALY (obstructive sleep apnea) Thyroid cancer (HCC) 12/26/2017 Type 2 diabetes mellitus (HCC) Most recent A1C Lab Results Component Value Date HBA1C 6.5 01/13/2023 HBA1C 6.8 10/14/2022 HBA1C 8.2 08/27/2022 HBA1C 7.0 04/11/2022 HBA1C 7.3 03/28/2022 HBA1C 7.1 01/08/2022 HBA1C 6.6 11/16/2021 HBA1C 6.5 08/02/2020 Physical Activity: Do you do a regular exercise? No Sick Days: How do you manage your diabetes when you are sick? Call my doctor Sleep: Do you get at least 7 hrs of sleep most nights? 3hrs Current Outpatient Medications Medication Sig OMNIPOD 5 G6 PODS, GEN 5, crtg Change pod every 48 hours. Blood-Glucose Sensor (DEXCOM G6 SENSOR) xavi Change sensor every 10 days Blood-Glucose Transmitter (DEXCOM G6 TRANSMITTER) xavi Change transmitter every 90 days semaglutide (OZEMPIC) 2 mg/dose (8 mg/3 mL) pen injector Inject 2 mg subcutaneously one time a week. insulin lispro (HUMALOG KWIKPEN INSULIN) 200 unit/mL (3 mL) injection Inject 14 Units subcutaneously three times daily before meals. Inject on sliding scale three times daily with meals, max daily dose of 100u levothyroxine (SYNTHROID) 200 mcg tablet TAKE 1 TABLET BY MOUTH ONCE DAILY insulin glargine (LANTUS SOLOSTAR U-100 INSULIN) 100 unit/mL (3 mL) Inject 60 Units subcutaneously daily at bedtime. LANTUS NAME BRAND NOT GENERIC Blood-Glucose Meter,Continuous (DEXCOM G6 LITHOGRAPHIC STRIPPER) misc For use with dexcom g6 sensors fluconazole (DIFLUCAN) 150 mg tablet 1 tablet by mouth. Repeat in 3 days. OXcarbazepine (TRILEPTAL) 150 mg tablet Take 150 mg by mouth twice daily. pregabalin (LYRICA) 75 mg capsule Take 75 mg by mouth twice daily. aspirin 81 mg cap Take 1 capsule by mouth once daily. famotidine ( (more content not included)... [facility] 03-26-2023 Note Education (RAJI) MACHELLE FRIEDMAN ([id number]) 1970 F Date Time Provider Department 03/26/23 9:00 AM VAL CORBETT Reason for Visit: Initial Visit / RD Diab Educ [[id number]] Primary Visit Diagnosis:Diabetic peripheral neuropathy associated with type 2 diabetes mellitus (HCC) [E11.42] Other Visit Diagnoses:Type 2 diabetes mellitus with hyperglycemia, with long-term current use of insulin (HCC) [E11.65, Z79.4] Obesity, Class III, BMI >= 40 [E66.01] Order(s):CONSULT TO DIABETES EDUCATION DSME/MNT [[id number]] Order #: [id number]: 4 During your visit today, we recorded the following information about you: Allergies As of Date: 03/26/2023 Noted Allergy Reaction ABILIFY (ARIPIPRAZOLE) 08/30/2020 14 - Other: See Comments Comments: Disorientation, loss of appetite, nausea vomiting BACTRIM (SULFAMETHOXAZOLE-TRIMETH*2018 16 - Unknown CELEXA (CITALOPRAM) 08/30/2020 14 - Other: See Comments Comments: Disorientation, loss of appetite, nausea vomiting JANUVIA (SITAGLIPTIN) 01/21/2019 16 - Unknown SEASONAL ALLERGIES 01/21/2019 5 - Intolerance SULFA (SULFONAMIDE ANTIBIOTICS) 08/30/2020 2 - Rash Comments: Rash, itching TRIMETHOPRIM 07/04/2020 2 - Rash 4 - Hives 14 - Other: See Comments Comments: Altered heart rate Date Reviewed: 01/13/2023 Reviewed by: Candelaria Zamora - Fully Assessed Prescriptions as of 03/26/2023 - OMNIPOD 5 G6 PODS, GEN 5, crtg Change pod every 48 hours. - Blood-Glucose Sensor (DEXCOM G6 SENSOR) xavi Change sensor every 10 days - Blood-Glucose Transmitter (DEXCOM G6 TRANSMITTER) xavi Change transmitter every 90 days - semaglutide (OZEMPIC) 2 mg/dose (8 mg/3 mL) pen injector Inject 2 mg subcutaneously one time a week. - insulin lispro (HUMALOG KWIKPEN INSULIN) 200 unit/mL (3 mL) injection Inject 14 Units subcutaneously three times daily before meals. Inject on sliding scale three times daily with meals, max daily dose of 100u - levothyroxine (SYNTHROID) 200 mcg tablet TAKE 1 TABLET BY MOUTH ONCE DAILY - insulin glargine (LANTUS SOLOSTAR U-100 INSULIN) 100 unit/mL (3 mL) Inject 60 Units subcutaneously daily at bedtime. LANTUS NAME BRAND NOT GENERIC - Blood-Glucose Meter,Continuous (DEXCOM G6 LITHOGRAPHIC STRIPPER) misc For use with dexcom g6 sensors - fluconazole (DIFLUCAN) 150 mg tablet 1 tablet by mouth. Repeat in 3 days. - OXcarbazepine (TRILEPTAL) 150 mg tablet Take 150 mg by mouth twice daily. - pregabalin (LYRICA) 75 mg capsule Take 75 mg by mouth twice daily. - aspirin 81 mg cap Take 1 capsule by mouth once daily. - famotidine (PEPCID) 20 mg tablet - TRINTELLIX 10 mg tablet 20 mg. - vortioxetine (TRINTELLIX) 5 mg tablet Take 5 mg by mouth once daily. - LORazepam (ATIVAN) 0.5 mg Take by mouth. - losartan (COZAAR) 25 mg tablet Take 25 mg by mouth once daily. - albuterol (PROVENTIL) 2.5 mg/3 mL nebulizer solution Inhale 2.5 mg as instructed as directed. - folic acid 1 mg tablet Take 1 mg by mouth once daily. - montelukast (SINGULAIR) 10 mg tablet Take 10 mg by mouth daily at bedtime. - Omeprazole 40 mg capsule Take 40 mg by mouth once daily. - simvastatin (ZOCOR) 20 mg tablet Take 20 mg by mouth daily at bedtime. - budesonide-formoterol (SYMBICORT) 160-4.5 mcg/actuation inhaler Inhale 2 Puffs as instructed twice daily. - albuterol HFA (PROVENTIL HFA, VENTOLIN HFA) 90 mcg/actuation inhaler Inhale 2 Puffs as instructed every 6 hours as needed. Meds Comments as of 05/06/2022: 05/06/22 The medications are managed by this patient by: PATIENT Nevin PARIS Soriano Encounter Status:Closed by VAL CORBETT on 03/26/23 [facility] 03-26-2023 History of Presen t illness Narrative DIABETES SELF-MANAGEMENT EDUCATION AND SUPPORT MNT note Location: [place] Type of visit: In person individual Types of DSMES: Initial/Comprehensive (add to or update ADA spreadsheet) PATIENT'S MAIN CONCERN TODAY: info and loss wt Support person present for education today: none Cognitive ability: Alert and oriented Motivation to learn: Interested Learning barriers identified by educator: none Method of instruction: written, verbal, and demonstration INTERVENTIONS/TOPICS COVERED: -Diabetes Pathophysiology: insulin resistance and hepatic glucose release -Monitoring: BG targets -Healthy Eating: impact of carbs on BG, basic carb counting, foods with carbs, portion sizes, fiber, reading food labels, recommendation for 45 g carb per meal, eating out, carb counting tools (books, Internet, smartphone apps), healthy heart options, and using an ICR to determine prandial insulin dosing-ICR 1:10, regular meals for both DM control and wt loss -Medications: reviewed home DM meds, basal insulin, prandial insulin, and pump use for ICR< CF< IOB -Physical Activity: benefits of exercise, impact of exercise on BG, types of exercise, and especially with a bad foot -Acute Complications: hypoglycemia s/sx/tx, hyperglycemia s/sx/tx, and pattern management DIABETES ASSESSMENT: Referring Physician: Rey Figueroa Previous Diabetes Education? Yes, if so when? >5 yrs What are you hoping to gain from this visit? help In your words, what is diabetes? asked/not answered What concerns you about having diabetes? problems Diabetes History: Type of Diabetes: Type 2 What year were you diagnosed? 24yrs ago Does anyone in your family have diabetes? yes How do you learn best? observing and doing Demographics: Highest level of education: Trade school or Associates degree Race/Ethnic Origin: White/ Does your culture or jainism require any of the following: No cultural/moravian practices affecting DM Do you have problems with: Walking Occupation: disability Work hours: na Support System: How often does someone help you read hospital materials? rarely How often does someone help you read your pill bottles? rarely How often does someone have to help you take care of your diabetes? rarely Major stressors:alot How do you manage stress? Forman. Take one day at a time, counselor, aqua therapy Do any of the following things get in the way of managing your diabetes? No self-identified issues Health History: Most recent eye exam: 2022 Most recent dental exam:needs to find one that take her insurance Most recent foot exam:1-3 mos How often do you inspect your feet at home? Daily Do you use tobacco? No Do you use alcohol? No In the past 12 months have you had any: Hospital Admissions: No ER Visits: No Primary Care Visits: Yes, Number of Times? 4 What are your general feelings about you overall health? Poor Medical Issues/Complications: see below PAST MEDICAL HISTORY Diagnosis Date Asthma Depression Hyperlipidemia Hypothyroidism MAGALY (obstructive sleep apnea) Thyroid cancer (HCC) 12/26/2017 Type 2 diabetes mellitus (HCC) Most recent A1C Lab Results Component Value Date HBA1C 6.5 01/13/2023 HBA1C 6.8 10/14/2022 HBA1C 8.2 08/27/2022 HBA1C 7.0 04/11/2022 HBA1C 7.3 03/28/2022 HBA1C 7.1 01/08/2022 HBA1C 6.6 11/16/2021 HBA1C 6.5 08/02/2020 Physical Activity: Do you do a regular exercise? No Sick Days: How do you manage your diabetes when you are sick? Call my doctor Sleep: Do you get at least 7 hrs of sleep most nights? 3hrs Current Outpatient Medications Medication Sig OMNIPOD 5 G6 PODS, GEN 5, crtg Change pod every 48 hours. Blood-Glucose Sensor (DEXCOM G6 SENSOR) xavi Change sensor every 10 days Blood-Glucose Transmitter (DEXCOM G6 TRANSMITTER) xavi Change transmitter every 90 days semaglutide (OZEMPIC) 2 mg/dose (8 mg/3 mL) pen injector Inject 2 mg subcutaneously one time a week. insulin lispro (HUMALOG KWIKPEN INSULIN) 200 unit/mL (3 mL) injection Inject 14 Units subcutaneously three times daily before meals. Inject on sliding scale three times daily with meals, max daily dose of 100u levothyroxine (SYNTHROID) 200 mcg tablet TAKE 1 TABLET BY MOUTH ONCE DAILY insulin glargine (LANTUS SOLOSTAR U-100 INSULIN) 100 unit/mL (3 mL) Inject 60 Units subcutaneously daily at bedtime. LANTUS NAME BRAND NOT GENERIC Blood-Glucose Meter,Continuous (DEXCOM G6 LITHOGRAPHIC STRIPPER) [facility] [place] use with dexcom g6 sensors fluconazole (DIFLUCAN) 150 mg tablet 1 tablet by mouth. Repeat in 3 days. OXcarbazepine (TRILEPTAL) 150 mg tablet Take 150 mg by mouth twice daily. pregabalin (LYRICA) 75 mg capsule Take 75 mg by mouth twice daily. aspirin 81 mg cap Take 1 capsule by mouth once daily. famotidine (PEPCID) 20 mg tablet TRINTELLIX 10 mg tablet 20 mg. vortioxetine (TRINTELLIX) 5 mg tablet Take 5 mg by mouth once daily. LORazepam (ATIVAN) 0.5 mg Take by mouth. losartan (COZAAR) 25 mg tablet Take 25 mg by mouth once daily. albuterol (PROVENTIL) 2.5 mg/3 mL nebulizer solution Inhale 2.5 mg as instructed as directed. folic acid 1 mg tablet Take 1 mg by mouth once daily. montelukast (SINGULAIR) 10 mg tablet Take 10 mg by mouth daily at bedtime. Omeprazole 40 mg capsule Take 40 mg by mouth once daily. simvastatin (ZOCOR) 20 mg tablet Take 20 mg by mouth daily at bedtime. budesonide-formoterol (SYMBICORT) 160-4.5 mcg/actuation inhaler Inhale 2 Puffs as instructed twice daily. albuterol HFA (PROVENTIL HFA, VENTOLIN HFA) 90 mcg/actuation inhaler Inhale 2 Puffs as instructed every 6 hours as needed. No current facility-administered medications for this visit. Medications for Diabetes: Name of Medication Dose When taken How often missed ICR 1:10 CF 1:38 Injections Technique: Do you take insulin or a medication you inject for your diabetes? Yes;then if so answer the following questions: How do you inject your medicine Pen Where are your injections done? Back of upper arm Who prepares your syringes, pen, or pump infusion set? Self Who gives you injections or changes your pump sites? Me Where do you throw away your needles? Sharps container Blood Sugar Monitoring: Do you have a blood sugar monitor? Yes; What kind of meter is it? 30 # days Average 134 mg/dl Time in range 0 % very high 8 % high 91 % in range 1 % low 1 % very low Other Comments:target 70-180 Management of Low Blood Sugar: What has been your lowest blood sugar in the last month? 44 over est carbs What are your symptoms of lows?Shaky, Sweaty, and Dizzy/lightheaded How do you treat lows? [id number] Do you drive? yes Management of High Blood Sugar: What has been you highest blood sugar in the last month? 215 What are your symptoms of highs? Thirsty and Frequent urination How do you treat your highs? insulin Meal Planning: anf 3 dtr mom Are you currently following any meal plan? Carb counting Who does the cooking in your house? Spouse and dtr Who does the grocery shopping? Self, Spouse, and dtr How often do you eat out? 0-1x/week How many meals do you eat per day? Two Which meals do you tend to skip? Lunch Beverages: water, diet drinks, coffee, and unsweetened tea Diet History: up about 9a Breakfast - 10;30 coffee zero creamer 2 toast butter Snack - diet coke Lunch - 1pm diet coke Snack - Dinner - 5:30pm meat veg pot/ [employer] sub 6inch/ pizza 2/persian sausage w peppers corn on cob Snack - occ pretzels/PB crackers before candy Reproductive Status (Females): Have you reached menopause? Yes EDUCATION HANDOUTS: Healthy You: Planning Healthy Meals LEARNING RESPONSE: Diabetes pathophysiology: Demonstrated understanding/competency today or at previous visit Healthy eating: Demonstrated understanding/competency today or at previous visit Being active: Demonstrated understanding/competency today or at previous visit Taking medications: Demonstrated understanding/competency today or at previous visit Monitoring glucose: Demonstrated understanding/competency today or at previous visit Acute complications: Demonstrated understanding/competency today or at previous visit Chronic complications: Demonstrated understanding/competency today or at previous visit PATIENT SELECTED THE FOLLOWING GOALS: -Healthy eating goal: follow a meal plan 3: I have a plan to start POSSIBLE FUTURE TOPICS: 1. The following topics were not assessed due to time limitations, but should be assessed at the next visit: all areas were assessed today or within the last 12 months. 2. The following topics should be taught or reinforced at the next visit: healthy eating and being active. DIABETES EDUCATION PLAN: Individual follow-up as needed -eat every 4-6 hrs - try chair exercises - portion control 45gms carb per meal Time Spent (Minutes): 75 This visit note will be communicated to the healthcare provider via access to shared medical record. SIGNATURE: Val Corbett MS RD [facility] PATIENT NAME: Machelle Friedman DATE: March 26, 2023 TIME: 9:03 AM PAGER: documented in this encounter [facility] 02-18-2023 Miscellaneous Notes Called patient and asked where she wanted to go for diabetic teaching She chooses [facility] February 18, 2023 1:59 PM Cannot go 02 26 2023 Staff: see consult. Wendie. documented in this encounter [facility] 01-22-2023 Note HNO ID: [id number] Author: Saul Cespedes PT, DPT Service: ? Author Type: Physical Therapist Type: Progress Notes Filed: 01/22/2023 9:47 AM Note Text: 01/22/2023 [facility]IL[facility]ATION AND SPORTS THERAPY PHYSICAL THERAPY DISCONTINUANCE OF CARE Plan of Care Period: Start of Care Date: 10/28/22 Last Visit Date: 11/12/2022 Therapy Program: The following is a summary of the interventions provided for this episode of care; Therapeutic exercise, Therapeutic activities, and Modalities: Vasopneumatic Treatment Assessment: Based on most recent visit, patient was progressing slower than expected toward functional goals based on pain levels. Unable to formally assess goal achievement, as patient has not returned to therapy or scheduled additional follow-up appointments. Reason for Discontinuation of Care: Patient has not returned to therapy or scheduled additional follow-up appointments. Saul Cespedes PT, DPT [facility] 01-13-2023 Note HNO ID: [id number] Author: Francie Britt APRN.PHOTO RETOUCHER Service: ? Author Type: Nurse Practitioner Type: Progress Notes Filed: 01/13/2023 10:36 AM Note Text: Rebecca Carty is a 52 year old female who presents for diabetes management. Timeline: Timeline: dx type 2 diabetes ~1999 Complications: (+) retinopathy, (+) neuropathy, (-) nephropathy Course: has been on insulin for several years. Has followed with Dr Irwin and Dr Cunningham. She continues to follow with Dr Cunningham for thyroid. First visit with [place] for diabetes management 03/2022. Current medications for diabetes: Ozempic 1mg once weekly (Friday) Pump Settings: -- Pump Type: OP5 -- Insulin Type: humalog Basal rate: Time 0.95 U/Hr Total Basal: 22.8 Carb ratio: 10 Insulin Sensitivity: 38 Blood glucose target: 120 Insulin time: 3 Previous medications for diabetes: Intolerant to metformin and glipizide stopped when she started insulin. Lantus prior to omnipod Today's visit: Patient presents today for routine diabetes followup. Since last seen, she was trained and started on OP5, using in auto mode with dexcom G6. Control appears to be excellent on pump therapy. She likes using the pump. TIR:92% High:7% Very High:0% Low: <1% Very Low: <1% GMI: 6.5% ___ Typical day/occupation: On disability Diet: Typically eats 3 meals daily. Breakfast: toast and diet coke zero. Lunch: 1/2 sandwich with turkey and yogurt. Supper: varies, cooks for children sometimes lots of noodles Exercise/activity: No regular exercise Hypertension and lipids managed by PCP Denies frequent periods of hypoglycemia. Patient verbalized understanding of the signs and symptoms of hypoglycemia and its treatment options. Important Diabetes Lab History: HBA1C: 01/2020 6.8%. 07/2020 6.5%. 01/2021 6.9%. 10/2021 6.6%. 12/2021 7.1%. 03/2022 7.3%. 08/2022 8.2%. 09/2022 6.8% Thyroid Function Testing: managed by Dr Cunningham TSH 12/2021 0.205 (currently taking synthroid 175mcg daily, holding once weekly) Renal Function Testin12/2021 creatinine 0.69 GFR >60 Urine for Microalbumin: 12/2018 Not detected Lipid Profile: 12/2021 TC 117 HDL 41 LDL 60 TG 82 Liver Profile: 12/2021 Alk Phos 82 AST 19 ALT 23 Important Diabetes Maintenance: Eye Exam: Patient educated to have ophthalmology visits at least once a year. Foot Exam: 03/2022 Review of Systems Constitutional: Negative for chills, diaphoresis, fever, malaise/fatigue and weight loss. HENT: Negative for congestion, nosebleeds and sore throat. Eyes: Negative for blurred vision, pain and discharge. Respiratory: Negative for cough, hemoptysis, sputum production, shortness of breath and wheezing. Cardiovascular: Positive for leg swelling. Negative for chest pain, palpitations and orthopnea. Gastrointestinal: Negative for abdominal pain, blood in stool, constipation, diarrhea, heartburn, nausea and vomiting. Genitourinary: Negative for dysuria, frequency, hematuria and urgency. Musculoskeletal: Positive for joint pain. Negative for back pain and myalgias. Skin: Negative for itching and rash. Neurological: Negative for dizziness, tingling, loss of consciousness and headaches. Endo/Heme/Allergies: Negative for polydipsia. Psychiatric/Behavioral: Positive for depression. Negative for suicidal ideas. The patient is nervous/anxious. The patient does not have insomnia. PAST MEDICAL HISTORY Diagnosis Date Asthma Depression Hyperlipidemia Hypothyroidism MAGALY (obstructive sleep apnea) Thyroid cancer (HCC) 12/26/2017 Type 2 diabetes mellitus (HCC) PAST SURGICAL HISTORY Procedure Laterality Date SECTION MULTI>2 CHOLECYSTECTOMY D AND C Diagnostic LAD INITIAL LAPAROSCOPIC FIBROID ABLATION PAST SURGICAL HISTORY OF x3 Bilateral PAST SURGICAL HISTORY OF [place] repair and alignment PAST SURGICAL HISTORY OF Uterine surgery REMOVAL OF THYROID RHINOPLASTY TUBAL LIGATION HX FAMILY HISTORY Problem Relation Age of Onset Cataract Father Diabetes Father Cancer Father Prostate Leukemia Father Heart Attack Father other (Other) Father Abnormal Heart Beat Cataract Mother Diabetes Mother other (Other) Mother Abnormal Heart Baet Multiple Sclerosis Sister Cancer Sister Lung Diabetes Brother Detached Retina Brother Macular Degen Maternal Grandmother Diabetes Maternal Grandmother Diabetes Paternal Grandmother Social History Tobacco Use Smoking status: Never Passive exposure: Past Smokeless tobacco: Never Vaping Use Vaping Use: Never used Substance Use Topics Alcohol use: Never Drug use: Never Current Meds insulin lispro (HUMALOG KWIKPEN INSULIN) 200 unit/mL (3 mL) injection Inject 14 Units subcutaneously three times daily before meals. Inject on sliding scale three times daily with meals, max daily dose of 100u levothyroxine (SYNTHROID) 200 mcg tablet TAKE 1 TABLET BY MOUTH ONCE DAILY insulin glargine (LANTUS SOLOSTAR (more content not included)... [facility] 12-27-2022 Miscellaneous Notes Noted, Will discuss with KSAndrew on 01/13 Francie Britt APRN, RAZA Spoke to patient to confirm she was scheduled correctly. Patient confirmed two appointments. Patient states she needs to ask some thyroid questions and asked if Dr. Cunningham could pop into her 01/13/2023 appointment real quick. She said Dr. Cunningham told her he would answer her questions on 01/13/2023. Advised Dr. Cunningham has patients at that time but we will do what we can to get her questions answered. Asked patient for question info so we could find out what she needs and she declined to ask the questions. Deepti Vazquez December 27, 2022 12:59 PM ----- Message from Netta Giordano sent at 12/27/2022 11:59 AM EDT ----- Regarding: Karuna/Neymar/Appt Subject Line Format: Medicine / [Provider Name] / [Issue] Patient has been identified by name and Date of (Y/N): Y Patient: Machelle Friedman Date of : 1970 Provider for this encounter: Francoise Scott MD Reason for the call/escalation: Pt canceled her 01/07/[address] Cunningham. Pt demanding to be scheduled after her appt with Francie Britt on 01/13/23. Agent unable to schedule for that date. Gave patient next available of 02/03/23, pt got angry and said she can not do that date. Next available was 07/10/23. Pt would not schedule that far out and again began demanding to be scheduled 01/13/23 because she needs her medicine and Dr. Cunningham told her to schedule for that date. Agent explained again that the date was not an option. Pt said tell them just give me my medicine, and hung up on agent. Was Patient Referred to 911/Seek Emergency Treatment (Y/N): na Did Patient Agree (Y/N): na Was An Attempt Made To Transfer The Patient To The Office (Y/N): na Were You Able To Reach Someone At The Office (Y/N): na If Yes - Patient Was Transferred To (Caregivers Name): na If No - Which [facility] Leadership Car Cleaning Supervisor Did You Speak With Regarding This Patient: na Was an appointment scheduled (Y/N): n Reason patient was requesting visit (RFV/signs and symptoms/diagnosis) : appt/medicine Person calling if other than patient: pt Return call to if other than patient: pt Best contact number: [phone] Thank you, Netta Elyncer December 27, 2022 11:59 AM documented in this encounter [facility] 11-15-2022 Miscellaneous Notes Patient called in today and spoke with Billy Rey stating her doctor was sending her for an ultrasound for a possible DVT. Billy relayed the message to WET PRESS TENDER. She cancelled today's therapy appointment. Linh Jenkins PTA documented in this encounter [facility] 11-12-2022 Note HNO ID: [id number] Author: Linh Jenkins PTA Service: ? Author Type: Outdoor Adventure Instructor Type: Progress Notes Filed: 11/12/2022 12:39 PM Note Text: Episode Visit Count: 4 Therapist That Will Accept/Oversee The Plan Of Care: Saul Cespdees DPT Start of Care Date: 10/28/22 Onset Date: 06/13/22 Plan of Care Certification Date: 10/28/22 Next Certification Due Date: 01/26/23 Patient Identified by Name and Date of : Yes REHABILITATION AND SPORTS THERAPY PHYSICAL THERAPY TREATMENT NOTE ASSESSMENT: Machelle Friedman tolerated the session with fatigue and expected muscle soreness. She demonstrated difficulty with facilitating muscular movement during exercises, however improved from prior visit being able to tolerate progressions. The patient will continue to benefit from ongoing skilled physical therapy to progress toward set goals. PLAN FOR NEXT VISIT: continue LE weight bearing and strengthening, balance exercises SUBJECTIVE: Patient states she felt better after her last treatment for a few hours, however her edema returned a few hours later. Pain: Pain Pain Level: 9 Pain Location: Foot - Right Description: Tightness, Aching Frequency: Continuous Post Treatment Pain Post Treatment Pain Level: Better OBJECTIVE MEASURES WITH LEVEL OF FUNCTION: Ambulated into clinic donning a slipper with her FWW Pre VICCD: 60cm Post VICCD: 59cm TREATMENT: Therapeutic Exercise: 1: R LAQ 2x10 5 1lb ankle cuff (increased resistance) 2: Seated october 2x10 1lb ankle cuff (increased resistance) 3: Seated BAPS PF/DF and Inversion/Eversion 10x L1 4: Towel toe scrunch 10x 5: R heel slide 2x10 6: Seated R inversion with towel on slide board 3x (increased repetitions) 7: Seated L hamstring stretch with strap 3x20 8: Prostretch 20x 9: Seated L eversion with towel on slide board 3x (increased repetitions) 10: 4 way ankle 10x yellow band Skilled Intervention: Patient was educated in proper exercise technique and purpose for exercises. Correct performance of therapeutic exercises was facilitated with verbal and visual cuing. Patient education as noted. Modalities: Vasopneumatic Treatment Body Region Treated - Vasopneumatic Treatment: R foot/leg Patient Position: semi recumbent Compression mmHg: moderate Cycle: max cold Minutes: 15 Skilled Intervention: Proper administration and selection of modality based on clinical presentation, deficits, and needs. Patient response monitored throughout treatment. Billing Therapeutic Exercise Treatment Minutes: 30 * Vasopneumatic Treatment: 1 unit Total Treatment Time Minutes (timed/untimed): 45 Linh Jenkins [facility] 11-12-2022 History of Presen t illness Narrative Episode Visit Count: 4 Therapist That Will Accept/Oversee The Plan Of Care: Saul Cespedes DPT Start of Care Date: 10/28/22 Onset Date: 06/13/22 Plan of Care Certification Date: 10/28/22 Next Certification Due Date: 01/26/23 Patient Identified by Name and Date of : Yes REHABILITATION AND SPORTS THERAPY PHYSICAL THERAPY TREATMENT NOTE ASSESSMENT: Machelle Friedman tolerated the session with fatigue and expected muscle soreness. She demonstrated difficulty with facilitating muscular movement during exercises, however improved from prior visit being able to tolerate progressions. The patient will continue to benefit from ongoing skilled physical therapy to progress toward set goals. PLAN FOR NEXT VISIT: continue LE weight bearing and strengthening, balance exercises SUBJECTIVE: Patient states she felt better after her last treatment for a few hours, however her edema returned a few hours later. Pain: Pain Pain Level: 9 Pain Location: Foot - Right Description: Tightness, Aching Frequency: Continuous Post Treatment Pain Post Treatment Pain Level: Better OBJECTIVE MEASURES WITH LEVEL OF FUNCTION: Ambulated into clinic donning a slipper with her FWW Pre VICCD: 60cm Post VICCD: 59cm TREATMENT: Therapeutic Exercise: 1: R LAQ 2x10 5 1lb ankle cuff (increased resistance) 2: Seated october 2x10 1lb ankle cuff (increased resistance) 3: Seated BAPS PF/DF and Inversion/Eversion 10x L1 4: Towel toe scrunch 10x 5: R heel slide 2x10 6: Seated R inversion with towel on slide board 3x (increased repetitions) 7: Seated L hamstring stretch with strap 3x20 8: Prostretch 20x 9: Seated L eversion with towel on slide board 3x (increased repetitions) 10: 4 way ankle 10x yellow band Skilled Intervention: Patient was educated in proper exercise technique and purpose for exercises. Correct performance of therapeutic exercises was facilitated with verbal and visual cuing. Patient education as noted. Modalities: Vasopneumatic Treatment Body Region Treated - Vasopneumatic Treatment: R foot/leg Patient Position: semi recumbent Compression mmHg: moderate Cycle: max cold Minutes: 15 Skilled Intervention: Proper administration and selection of modality based on clinical presentation, deficits, and needs. Patient response monitored throughout treatment. Billing Therapeutic Exercise Treatment Minutes: 30 * Vasopneumatic Treatment: 1 unit Total Treatment Time Minutes (timed/untimed): 45 Linh Jenkins PTA documented in this encounter [facility] 11-11-2022 Note HNO ID: [id number] Author: Darin Falcon RT(R) Service: Radiology Author Type: Technologist Type: Progress Notes Filed: 11/11/2022 11:07 AM Note Text: Radiology Service Progress Note PATIENT NAME: Machelle Friedman DATE OF SERVICE: November 11, 2022 TIME: 11:06 AM PATIENT IDENTITY VERIFICATION COMPLETED USING TWO (2) IDENTIFIERS: Name and Date of confirmed by patient verbally. FALL SCREENING: Has the patient had 2 falls in the last year or 1 fall with injury or currently using an Ambulatory Assistive Device (Walker, Cane, Wheelchair, Crutches, etc.)? No PATIENT GENDER DATA: Female. status: : No status: NO. PATIENT RELEVANT IMPLANT DATA REVIEWED: Not Applicable RADIOLOGY DEPARTMENT: CT; Exam(s) Completed: Lower extremity PERIPHERAL IV DATA: Not applicable SIGNED BY: RT Randee(R) November 11, 2022 11:06 AM [facility] 11-11-2022 History of Presen t illness Narrative Radiology Service Progress Note PATIENT NAME: Machelle Friedman DATE OF SERVICE: November 11, 2022 TIME: 11:06 AM PATIENT IDENTITY VERIFICATION COMPLETED USING TWO (2) IDENTIFIERS: Name and Date of confirmed by patient verbally. FALL SCREENING: Has the patient had 2 falls in the last year or 1 fall with injury or currently using an Ambulatory Assistive Device (Walker, Cane, Wheelchair, Crutches, etc.)? No PATIENT GENDER DATA: Female. status: : No status: NO. PATIENT RELEVANT IMPLANT DATA REVIEWED: Not Applicable RADIOLOGY DEPARTMENT: CT; Exam(s) Completed: Lower extremity PERIPHERAL IV DATA: Not applicable SIGNED BY: RT Randee(R) November 11, 2022 11:06 AM documented in this encounter [facility] 11-07-2022 Note HNO ID: [id number] Author: Linh Jenkins PTA Service: ? Author Type: Outdoor Adventure Instructor Type: Progress Notes Filed: 11/07/2022 3:43 PM Note Text: Episode Visit Count: 3 Therapist That Will Accept/Oversee The Plan Of Care: Saul Cespedes DPT Start of Care Date: 10/28/22 Onset Date: 06/13/22 Plan of Care Certification Date: 10/28/22 Next Certification Due Date: 01/26/23 Patient Identified by Name and Date of : Yes REHABILITATION AND SPORTS THERAPY PHYSICAL THERAPY TREATMENT NOTE ASSESSMENT: Machelle Friedman tolerated the session with increased symptoms. She demonstrated difficulty with exercises due to limited L ankle range of motion with increased pain and discomfort. Refused to trial Nustep for LE range of motion this visit. The patient will continue to benefit from ongoing skilled physical therapy to progress toward set goals. Given verbal permission to trial VICCD for edema per Saul Cespedes PHanna, D.P.T. PLAN FOR NEXT VISIT: continue LE weight bearing and strengthening, balance exercises SUBJECTIVE: Patient states she was so sore after last session that she couldn't bear weight at home. She complains of edema that just will not go away. She states she is elevating her leg above her heart. Pain: Pain Pain Level: 9 Pain Location: Foot - Right Description: Sharp Frequency: Continuous Post Treatment Pain Post Treatment Pain Level: 8 OBJECTIVE MEASURES WITH LEVEL OF FUNCTION: Arrives use scooter and donning sock; agitated; frustrated Pre game ready: L ankle figure 8 at 60 cm Post game ready: L ankle figure 8 at 59 cm TREATMENT: Therapeutic Exercise: 1: R LAQ 2x10 5 2: Seated october 2x10 3: Ankle ABC's 1x 4: Towel toe scrunch 10x 5: Paul machine pecan picker 2' 6: Seated R inversion with towel on slide board 2x 7: Seated L hamstring stretch with strap 3x20 8: Prostretch 20x 9: Seated L eversion with towel on slide board 2x Skilled Intervention: Patient was educated in proper exercise technique and purpose for exercises. Provided verbal instruction for home exercise program to facilitate proper performance and compliance. Correct performance of therapeutic exercises was facilitated with verbal and tactile cuing. Patient education as noted. Therapeutic Activity: 1: Adjusted single layer of tubigrip to double layer size G; she had overlapping from her single layer Skilled Intervention: Reviewed and educated patient on additions/changes for home program Modalities: Vasopneumatic Treatment Body Region Treated - Vasopneumatic Treatment: R foot/leg Patient Position: semi recumbent Compression mmHg: moderate Cycle: max cold Minutes: 15 Skilled Intervention: Proper administration and selection of modality based on clinical presentation, deficits, and needs. Patient response monitored throughout treatment. Home Exercise Program Assigned: 1: Ankle ABC's Billing Therapeutic Exercise Treatment Minutes: 20 Therapeutic Activity Treatment Minutes: 5 * Vasopneumatic Treatment: 1 unit Total Treatment Time Minutes (timed/untimed): 40 Linh Jenkins [facility] 11-07-2022 History of Presen t illness Narrative Episode Visit Count: 3 Therapist That Will Accept/Oversee The Plan Of Care: Saul Cespedes DPT Start of Care Date: 10/28/22 Onset Date: 06/13/22 Plan of Care Certification Date: 10/28/22 Next Certification Due Date: 01/26/23 Patient Identified by Name and Date of : Yes REHABILITATION AND SPORTS THERAPY PHYSICAL THERAPY TREATMENT NOTE ASSESSMENT: Machelle Friedman tolerated the session with increased symptoms. She demonstrated difficulty with exercises due to limited L ankle range of motion with increased pain and discomfort. Refused to trial Nustep for LE range of motion this visit. The patient will continue to benefit from ongoing skilled physical therapy to progress toward set goals. Given verbal permission to trial VICCD for edema per Saul Cespedes P.T., D.P.T. PLAN FOR NEXT VISIT: continue LE weight bearing and strengthening, balance exercises SUBJECTIVE: Patient states she was so sore after last session that she couldn't bear weight at home. She complains of edema that just will not go away. She states she is elevating her leg above her heart. Pain: Pain Pain Level: 9 Pain Location: Foot - Right Description: Sharp Frequency: Continuous Post Treatment Pain Post Treatment Pain Level: 8 OBJECTIVE MEASURES WITH LEVEL OF FUNCTION: Arrives use scooter and donning sock; agitated; frustrated Pre game ready: L ankle figure 8 at 60 cm Post game ready: L ankle figure 8 at 59 cm TREATMENT: Therapeutic Exercise: 1: R LAQ 2x10 5 2: Seated october 2x10 3: Ankle ABC's 1x 4: Towel toe scrunch 10x 5: Paul machine pecan picker 2' 6: Seated R inversion with towel on slide board 2x 7: Seated L hamstring stretch with strap 3x20 8: Prostretch 20x 9: Seated L eversion with towel on slide board 2x Skilled Intervention: Patient was educated in proper exercise technique and purpose for exercises. Provided verbal instruction for home exercise program to facilitate proper performance and compliance. Correct performance of therapeutic exercises was facilitated with verbal and tactile cuing. Patient education as noted. Therapeutic Activity: 1: Adjusted single layer of tubigrip to double layer size G; she had overlapping from her single layer Skilled Intervention: Reviewed and educated patient on additions/changes for home program Modalities: Vasopneumatic Treatment Body Region Treated - Vasopneumatic Treatment: R foot/leg Patient Position: semi recumbent Compression mmHg: moderate Cycle: max cold Minutes: 15 Skilled Intervention: Proper administration and selection of modality based on clinical presentation, deficits, and needs. Patient response monitored throughout treatment. Home Exercise Program Assigned: 1: Ankle ABC's Billing Therapeutic Exercise Treatment Minutes: 20 Therapeutic Activity Treatment Minutes: 5 * Vasopneumatic Treatment: 1 unit Total Treatment Time Minutes (timed/untimed): 40 Linh Jenkins PTA documented in this encounter [facility] 11-04-2022 Note HNO ID: [id number] Author: Irene Simmons PTA Service: ? Author Type: Outdoor Adventure Instructor Type: Progress Notes Filed: 11/04/2022 1:07 PM Note Text: Episode Visit Count: 2 Therapist That Will Accept/Oversee The Plan Of Care: Saul Cespedes DPT Start of Care Date: 10/28/22 Onset Date: 06/13/22 Plan of Care Certification Date: 10/28/22 Next Certification Due Date: 01/26/23 Patient Identified by Name and Date of : Yes REHABILITATION AND SPORTS THERAPY PHYSICAL THERAPY TREATMENT NOTE ASSESSMENT: Machelle Friedman tolerated the session with increased symptoms. She demonstrated difficulty with all activities and noted edema. Trialed Tubigrip with instruction provided in care and use. Monitor effectiveness. The patient will continue to benefit from ongoing skilled physical therapy to progress toward set goals. PLAN FOR NEXT VISIT: continue LE weight bearing and strengthening, balance exercises SUBJECTIVE: Patient continues to report pain. /10. Has tried exercises as tolerated Pain: Pain Pain Level: 6 Pain Location: Foot - Right, Calf - Right, Ankle - Right Frequency: Continuous Post Treatment Pain Post Treatment Pain Level: 9 OBJECTIVE MEASURES WITH LEVEL OF FUNCTION: TREATMENT: Therapeutic Exercise: 1: seated LAQ B2x10 - no boot on. 2: seated marching B 2 x 10 - no boot on 3: seated DF - range limited due to fusion - x 10 RLE - no boot on 4: standing weight shift right and left 2 x 10 - boot on 5: standing right stance with left heel tap 2 x 10 - boot on 6: standing marching B - limited lift with LLE due to increased weight bearing on RLE - 2 x 10 - boot on Skilled Intervention: Patient was educated in proper exercise technique and purpose for exercises. Skilled judgment was provided in selection of appropriate interventions. Correct performance of therapeutic exercises was facilitated with verbal cuing. Therapeutic Activity: 1: instructed the patient in the use of Tubigrip to use on RLE for edema control - one layer. The patient is to remove the garment if she has pain. She is not to wear at night. She was instruted in the care of the garment - hand wash and air dry. Monitor effectiveness. Skilled Intervention: instruction in Tubigrip use Billing Therapeutic Exercise Treatment Minutes: 30 Therapeutic Activity Treatment Minutes: 8 Total Treatment Time Minutes (timed/untimed): 38 Irene Simmons [facility] 10-28-2022 Note HNO ID: [id number] Author: Saul Cespedes PT, DIAMOND Service: ? Author Type: Physical Therapist Type: Progress Notes Filed: 11/08/2022 10:52 AM Note Text: Episode Visit Count: 1 Therapist That Will Accept/Oversee The Plan Of Care: Saul Cespedes DPT Start of Care Date: 10/28/22 Onset Date: 06/13/22 Plan of Care Certification Date: 10/28/22 Next Certification Due Date: 01/26/23 Patient Identified by Name and Date of : Yes REHABILITATION AND SPORTS THERAPY PHYSICAL THERAPY EVALUATION PLAN OF CARE: Assessment: Machelle Friedman presents with chief complaint of R ankle pain following ankle fusion that interferes with stair negotiation, walking, heavy exertion, physical activities, recreational activities, standing, sleeping, grooming, feeding self, dressing . She presents with impairments in balance, gait, independence in exercise, overall function, range of motion, and strength. Prognosis for therapy is Fair due to: clinical presentation, multiple co- morbidities, chronic nature of impairments, Prognosis may be improved by good support system/ coping skills. Pt currently has a very low tolerance to activity, and could be limited given the timeframe since surgery. She will benefit from skilled therapy services to meet the goals established for this plan of care as noted below. Goals for Episode of Care: created on 10/28/22 through 12/28/22 [place] in home exercise program. Patient will decrease pain rating by 2 points to meet minimal clinical important difference for numeric pain rating scale. Patient will demonstrate increase in B LE strength to 4/5 during manual muscle testing in order to improve function for basic self-care tasks, home management tasks, light functional tasks, and prior functional tasks. Patient will Improve Timed Up and Go to below 20 seconds to demonstrate decreased risk of falling. Patient Goals: to walk without pain and get up steps Planned Interventions, Frequency, and Duration: Current Frequency: 2x/week Duration: 8 weeks Total Number of Visits Planned: 16 Planned Treatment Interventions: Therapeutic exercise (40681), Neuromuscular re-education (68087), Manual therapy (82787), Therapeutic activities (39678), Self-senior living management (87169), Gait Training (73051), Aquatic PT (95727) (Modalities PRN for pain management) PLAN FOR NEXT VISIT: Initiate LE weight bearing and strengthening, balance exercises Patient demonstrates good understanding of plan of care and treatment. The above goals and plan of care were discussed and agreed upon by patient/family. SUBJECTIVE: Machelle Friedman is a 52 year old female seen today for R ankle pain following ankle fusion on June 13, 2022. Pt had an ulcer at her incision site, which has since been sutured and is healing up, although continues to cause the pt pain. Pt uses a boot and knee scooter because it is too painful to ambulate, although she has been cleared to WBAT. Pt says she can barely put any weight through her RLE at this time due to her pain levels. Pt has not been doing any type of exercise since her procedure, and reports she requires assistance with most daily tasks. Patient Goals: to walk without pain and get up steps Functional Limitations: stair negotiation, walking, heavy exertion, physical activities, recreational activities, standing, sleeping, grooming, feeding self, dressing Prior Level of Function: Independent without limitations Relevant History Past Relevant Medical Conditions: Diabetes, Asthma, Cancer, Thyroid Disease (sleep apnea, allergies, GERD) Past Relevant Surgical Conditions: (knee arthroscopy bilaterally,) Right or Left Handed: Right Home Environment Patient Lives With: Family Home Type: Split Level Entry To Home: Ramp Equipment Owned: Walker- Wheeled, Hospital Bed, Cane, Grab Bars- Shower Falls Interview: Fall with injury in the last year Falls Intervention: Instructed patient on safety and use of assistive device and awareness in regards to falls prevention. Pain: Pain Pain Level: 4 Pain Location: Foot - Right, Calf - Right, Ankle - Right Description: Stabbing Frequency: Continuous Post Treatment Pain Post Treatment Pain Level: No Change PROMIS Scales T-scores: mean of general population = 50. 5 points is clinically meaningfully difference Percentiles provide an indication of how the patient's score ranks in relation to the general population. Higher percentile rankings indicate better function/quality of life. 50th percentile is the average of the general population and indicates half of respondents had a worse score. OBJECTIVE MEASURES WITH LEVEL OF FUNCTION: Ankle Observations R Ankle Girth - Figure 8 (cm): 58.2 L Ankle Girth - Figure 8 (cm): 55 R Ankle Palpation Tenderness: Lateral malleolus R Foot Observations: swelling/edema Sensation - Lower Extremity LE Light Touch Sensation: Grossly Intac (more content not included)... [facility] 10-18-2022 Miscellaneous Notes Pt called in LVM stated has questions bout Omnipod just received it [place] the mall and need training . Called pt she stated she reached out to someone at [employer] and to first follow instructions on box to register. Gave pt [employer] number [employer]mn[employer] auto claim representative for scheduling and training. Pt's voice understanding. Candelaria Zamora documented in this encounter [facility] 10-14-2022 Note HNO ID: [id number] Author: Francie Britt APRN.PHOTO RETOUCHER Service: ? Author Type: Nurse Practitioner Type: Progress Notes Filed: 10/17/2022 8:11 AM Note Text: Rebecca Carty is a 52 year old female who presents for diabetes management. Timeline: Timeline: dx type 2 diabetes ~1999 Complications: (+) retinopathy, (+) neuropathy, (-) nephropathy Course: has been on insulin for several years. Has followed with Dr Irwin and Dr Cunningham. She continues to follow with Dr Cunningham for thyroid. First visit with me for diabetes management 03/2022. Current medications for diabetes: Ozempic 1mg once weekly (Friday) Your insulin regimen: Long acting insulin: Insulin used for this is called: lantus Bedtime dose 60 units Rapid acting /mealtime insulin: Insulin used for this is called: Humalog Breakfast dose: 14 units Lunchtime dose 14 units Supper dose 14 units Your sliding scale, for additional units of the rapid acting insulin: Insulin used for this is called: humalog Take this at meals, in addition to the above doses. If glucose reading is: 150-175 Take an additional 2 Units. 176-200 Take an additional 2 Units. 201-225 Take an additional 4 Units. 226-250 Take an additional 4 Units. 251-275 Take an additional 6 Units. 276-300 Take an additional 6 Units. 301-325 Take an additional 8 Units. 326-350 Take an additional 8 Units. 351-375 Take an additional 10 Units. 376-400 Take an additional 10 Units. Over 400 Take an additional 12 Units. Previous medications for diabetes: Intolerant to metformin and glipizide stopped when she started insulin Today's visit: Patient presents today for routine diabetes followup. A1c has improved. Using Dexcom for CGM TIR:87% High:12% Very High:<1% Low: <1% Very Low: <1% ___ Typical day/occupation: On disability Diet: Typically eats 3 meals daily. Breakfast: toast and diet coke zero. Lunch: 1/2 sandwich with turkey and yogurt. Supper: varies, cooks for children sometimes lots of noodles Exercise/activity: No regular exercise Hypertension and lipids managed by PCP Denies frequent periods of hypoglycemia. Patient verbalized understanding of the signs and symptoms of hypoglycemia and its treatment options. Important Diabetes Lab History: HBA1C: 01/2020 6.8%. 07/2020 6.5%. 01/2021 6.9%. 10/2021 6.6%. 12/2021 7.1%. 03/2022 7.3%. 08/2022 8.2%. 09/2022 6.8% Thyroid Function Testing: managed by Dr Cunningham TSH 12/2021 0.205 (currently taking synthroid 175mcg daily, holding once weekly) Renal Function Testin12/2021 creatinine 0.69 GFR >60 Urine for Microalbumin: 12/2018 Not detected Lipid Profile: 12/2021 TC 117 HDL 41 LDL 60 TG 82 Liver Profile: 12/2021 Alk Phos 82 AST 19 ALT 23 Important Diabetes Maintenance: Eye Exam: Patient educated to have ophthalmology visits at least once a year. Foot Exam: 03/2022 Review of Systems Constitutional: Negative for chills, diaphoresis, fever, malaise/fatigue and weight loss. HENT: Negative for congestion, nosebleeds and sore throat. Eyes: Negative for blurred vision, pain and discharge. Respiratory: Negative for cough, hemoptysis, sputum production, shortness of breath and wheezing. Cardiovascular: Negative for chest pain, palpitations, orthopnea and leg swelling. Gastrointestinal: Negative for abdominal pain, blood in stool, constipation, diarrhea, heartburn, nausea and vomiting. Genitourinary: Negative for dysuria, frequency, hematuria and urgency. Musculoskeletal: Positive for joint pain. Negative for back pain and myalgias. Skin: Negative for itching and rash. Neurological: Negative for dizziness, tingling, loss of consciousness and headaches. Endo/Heme/Allergies: Negative for polydipsia. Psychiatric/Behavioral: Positive for depression. Negative for suicidal ideas. The patient is nervous/anxious. The patient does not have insomnia. PAST MEDICAL HISTORY Diagnosis Date Asthma Depression Hyperlipidemia Hypothyroidism MAGALY (obstructive sleep apnea) Thyroid cancer (HCC) 12/26/2017 Type 2 diabetes mellitus (HCC) PAST SURGICAL HISTORY Procedure Laterality Date SECTION MULTI>2 CHOLECYSTECTOMY D AND C Diagnostic LAD INITIAL LAPAROSCOPIC FIBROID ABLATION PAST SURGICAL HISTORY OF x3 Bilateral PAST SURGICAL HISTORY OF [place] repair and alignment PAST SURGICAL HISTORY OF Uterine surgery REMOVAL OF THYROID RHINOPLASTY TUBAL LIGATION HX FAMILY HISTORY Problem Relation Age of Onset Cataract Father Diabetes Father Cancer Father Prostate Leukemia Father Heart Attack Father other (Other) Father Abnormal Heart Beat Cataract Mother Diabetes Mother other (Other) Mother Abnormal Heart Baet Multiple Sclerosis Sister Cancer Sister Lung Diabetes Brother Detached Retina Brother Macular Degen Maternal Grandmother Diabetes Maternal Grandmother Diabetes Paternal Grandmother Social History Tobacco Use Smoking status: Neve (more content not included)... [facility] 10-14-2022 Instructions Francie Britt APRN.CNP - 10/14/2022 9:29 AM EST Ozempic 1mg once weekly (Friday) Your insulin regimen: Long acting insulin: Insulin used for this is called: lantus Bedtime dose 60 units Rapid acting /mealtime insulin: Insulin used for this is called: Humalog Breakfast dose: 14 units Lunchtime dose 14 units Supper dose 14 units Your sliding scale, for additional units of the rapid acting insulin: Insulin used for this is called: humalog Take this at meals, in addition to the above doses. If glucose reading is: 150-175 Take an additional 2 Units. 176-200 Take an additional 2 Units. 201-225 Take an additional 4 Units. 226-250 Take an additional 4 Units. 251-275 Take an additional 6 Units. 276-300 Take an additional 6 Units. 301-325 Take an additional 8 Units. 326-350 Take an additional 8 Units. 351-375 Take an additional 10 Units. 376-400 Take an additional 10 Units. Over 400 Take an additional 12 Units. I have ordered omnipod, call and schedule training once you receive it. documented in this encounter [facility] 10-14-2022 History of Presen t illness Narrative Rebecca Carty is a 52 year old female who presents for diabetes management. Timeline: Timeline: dx type 2 diabetes ~1999 Complications: (+) retinopathy, (+) neuropathy, (-) nephropathy Course: has been on insulin for several years. Has followed with Dr Irwin and Dr Cunningham. She continues to follow with Dr Cunningham for thyroid. First visit with me for diabetes management 03/2022. Current medications for diabetes: Ozempic 1mg once weekly (Friday) Your insulin regimen: Long acting insulin: Insulin used for this is called: lantus Bedtime dose 60 units Rapid acting /mealtime insulin: Insulin used for this is called: Humalog Breakfast dose: 14 units Lunchtime dose 14 units Supper dose 14 units Your sliding scale, for additional units of the rapid acting insulin: Insulin used for this is called: humalog Take this at meals, in addition to the above doses. If glucose reading is: 150-175 Take an additional 2 Units. 176-200 Take an additional 2 Units. 201-225 Take an additional 4 Units. 226-250 Take an additional 4 Units. 251-275 Take an additional 6 Units. 276-300 Take an additional 6 Units. 301-325 Take an additional 8 Units. 326-350 Take an additional 8 Units. 351-375 Take an additional 10 Units. 376-400 Take an additional 10 Units. Over 400 Take an additional 12 Units. Previous medications for diabetes: Intolerant to metformin and glipizide stopped when she started insulin Today's visit: Patient presents today for routine diabetes followup. A1c has improved. Using Dexcom for CGM TIR:87% High:12% Very High:<1% Low: <1% Very Low: <1% ___ Typical day/occupation: On disability Diet: Typically eats 3 meals daily. Breakfast: toast and diet coke zero. Lunch: 1/2 sandwich with turkey and yogurt. Supper: varies, cooks for children sometimes lots of noodles Exercise/activity: No regular exercise Hypertension and lipids managed by PCP Denies frequent periods of hypoglycemia. Patient verbalized understanding of the signs and symptoms of hypoglycemia and its treatment options. Important Diabetes Lab History: HBA1C: 01/2020 6.8%. 07/2020 6.5%. 01/2021 6.9%. 10/2021 6.6%. 12/2021 7.1%. 03/2022 7.3%. 08/2022 8.2%. 09/2022 6.8% Thyroid Function Testing: managed by Dr Cunningham TSH 12/2021 0.205 (currently taking synthroid 175mcg daily, holding once weekly) Renal Function Testin12/2021 creatinine 0.69 GFR >60 Urine for Microalbumin: 12/2018 Not detected Lipid Profile: 12/2021 TC 117 HDL 41 LDL 60 TG 82 Liver Profile: 12/2021 Alk Phos 82 AST 19 ALT 23 Important Diabetes Maintenance: Eye Exam: Patient educated to have ophthalmology visits at least once a year. Foot Exam: 03/2022 Review of Systems Constitutional: Negative for chills, diaphoresis, fever, malaise/fatigue and weight loss. HENT: Negative for congestion, nosebleeds and sore throat. Eyes: Negative for blurred vision, pain and discharge. Respiratory: Negative for cough, hemoptysis, sputum production, shortness of breath and wheezing. Cardiovascular: Negative for chest pain, palpitations, orthopnea and leg swelling. Gastrointestinal: Negative for abdominal pain, blood in stool, constipation, diarrhea, heartburn, nausea and vomiting. Genitourinary: Negative for dysuria, frequency, hematuria and urgency. Musculoskeletal: Positive for joint pain. Negative for back pain and myalgias. Skin: Negative for itching and rash. Neurological: Negative for dizziness, tingling, loss of consciousness and headaches. Endo/Heme/Allergies: Negative for polydipsia. Psychiatric/Behavioral: Positive for depression. Negative for suicidal ideas. The patient is nervous/anxious. The patient does not have insomnia. PAST MEDICAL HISTORY Diagnosis Date Asthma Depression Hyperlipidemia Hypothyroidism MAGALY (obstructive sleep apnea) Thyroid cancer (HCC) 12/26/2017 Type 2 diabetes mellitus (HCC) PAST SURGICAL HISTORY Procedure Laterality Date SECTION MULTI>2 CHOLECYSTECTOMY D AND C Diagnostic LAD INITIAL LAPAROSCOPIC FIBROID ABLATION PAST SURGICAL HISTORY OF x3 Bilateral PAST SURGICAL HISTORY OF [place] repair and alignment PAST SURGICAL HISTORY OF Uterine surgery REMOVAL OF THYROID RHINOPLASTY TUBAL LIGATION HX FAMILY HISTORY Problem Relation Age of Onset Cataract Father Diabetes Father Cancer Father Prostate Leukemia Father Heart Attack Father other (Other) Father Abnormal Heart Beat Cataract Mother Diabetes Mother other (Other) Mother Abnormal Heart Baet Multiple Sclerosis Sister Cancer Sister Lung Diabetes Brother Detached Retina Brother Macular Degen Maternal Grandmother Diabetes Maternal Grandmother Diabetes Paternal Grandmother Social History Tobacco Use Smoking status: Never Passive exposure: Past Smokeless tobacco: Never Vaping Use Vaping Use: Never used Substance Use Topics Alcohol use: Never Drug use: Never Current Meds insulin lispro (HUMALOG KWIKPEN INSULIN) 200 unit/mL (3 mL) injection Inject 14 Units subcutaneously three times daily before meals. Inject on sliding scale three times daily with meals, max daily dose of 100u semaglutide (OZEMPIC) 1 mg/dose (4 mg/3 mL) pen Inject 1 mg subcutaneously one time a week. levothyroxine (SYNTHROID) 200 mcg tablet TAKE 1 TABLET BY MOUTH ONCE DAILY insulin glargine (LANTUS SOLOSTAR U-100 INSULIN) 100 unit/mL (3 mL) Inject 60 Units subcutaneously daily at bedtime. LANTUS NAME BRAND NOT GENERIC Blood-Glucose Sensor (DEXCOM G6 SENSOR) xavi Change sensor every 10 days Blood-Glucose Transmitter (DEXCOM G6 TRANSMITTER) xavi Change transmitter every 90 days Blood-Glucose Meter,Continuous (DEXCOM G6 LITHOGRAPHIC STRIPPER) [facility] mangum For use with dexcom g6 sensors fluconazole (DIFLUCAN) 150 mg tablet 1 tablet by mouth. Repeat in 3 days. OXcarbazepine (TRILEPTAL) 150 mg tablet Take 150 mg by mouth twice daily. pregabalin (LYRICA) 75 mg capsule Take 75 mg by mouth twice daily. aspirin 81 mg cap Take 1 capsule by mouth once daily. famotidine (PEPCID) 20 mg tablet TRINTELLIX 10 mg tablet 20 mg. LORazepam (ATIVAN) 0.5 mg Take by mouth. losartan (COZAAR) 25 mg tablet Take 25 mg by mouth once daily. albuterol (PROVENTIL) 2.5 mg/3 mL nebulizer solution Inhale 2.5 mg as instructed as directed. folic acid 1 mg tablet Take 1 mg by mouth once daily. meloxicam (MOBIC) 15 mg tablet Take 15 mg by mouth once daily. montelukast (SINGULAIR) 10 mg tablet Take 10 mg by mouth daily at bedtime. Omeprazole 40 mg capsule Take 40 mg by mouth once daily. simvastatin (ZOCOR) 20 mg tablet Take 20 mg by mouth daily at bedtime. budesonide-formoterol (SYMBICORT) 160-4.5 mcg/actuation inhaler Inhale 2 Puffs as instructed twice daily. albuterol HFA (PROVENTIL HFA, VENTOLIN HFA) 90 mcg/actuation inhaler Inhale 2 Puffs as instructed every 6 hours as needed. OMNIPOD 5 G6 INTRO KIT, GEN 5, crtg Change pod every 48 hours. OMNIPOD 5 G6 PODS, GEN 5, crtg Change pod every 48 hours. traMADol (ULTRAM) 50 mg tablet Take 50 mg by mouth three times daily as needed for pain. (Patient not taking: Reported on 10/14/2022) [employer] EMMANUEL 14 DAY SENSOR kit Inject 1 Each subcutaneously every 2 weeks. (Patient not taking: Reported on 10/14/2022) DULoxetine (CYMBALTA) 20 mg capsule Take 1 capsule by mouth twice daily. (Patient not taking: No sig reported) vortioxetine (TRINTELLIX) 5 mg tablet Take 5 mg by mouth once daily. (Patient not taking: No sig reported) Objective BP 112/77 (BP Site: Right Arm, BP Position: Sitting, BP Cuff Size: Large Adult) Pulse 100 Ht 165.1 cm (5' 5 ) Wt 120.2 kg (265 lb) SpO2 95% BMI 44.10 kg/m Physical Exam Constitutional: General: She is not in acute distress. HENT: Head: Normocephalic and atraumatic. Eyes: General: No scleral icterus. Conjunctiva/sclera: Conjunctivae normal. Pupils: Pupils are equal, round, and reactive to light. Cardiovascular: Rate and Rhythm: Normal rate and regular rhythm. Heart sounds: Normal heart sounds. No murmur heard. Pulmonary: Effort: Pulmonary effort is normal. No respiratory distress. Breath sounds: Normal breath sounds. No wheezing or rales. Chest: Chest wall: No tenderness. Abdominal: General: There is no distension. Palpations: Abdomen is soft. Tenderness: There is no abdominal tenderness. There is no rebound. Musculoskeletal: General: No tenderness. Cervical back: Neck supple. Lymphadenopathy: Cervical: No cervical adenopathy. Skin: General: Skin is warm and dry. Findings: No rash. Neurological: Mental Status: She is alert and oriented to person, place, and time. Cranial Nerves: No cranial nerve deficit. Gait: Gait is intact. Psychiatric: Mood and Affect: Mood and affect normal. Cognition and Memory: Memory normal. Judgment: Judgment normal. Plan ASSESSMENT/PLAN: 1. Type 2 diabetes mellitus with hyperglycemia, with long-term current use of insulin ([facility]) - ICD9: 250.00, 790.29, V58.67, ICD10: E11.65, Z79.4 (primary diagnosis) A1c 6.8%. Improved since last seen, controlled. Wants to change to omnipod, orders placed - OMNIPOD 5 G6 INTRO KIT (GEN 5) SUBCUTANEOUS CARTRIDGE WITH CONTROLLER - OMNIPOD 5 G6 PODS (GEN 5) SUBCUTANEOUS CARTRIDGE 2. High risk medication use - ICD9: V58.69, ICD10: Z79.899 Insulin - continue 3. Class 3 severe obesity due to excess calories with serious comorbidity and body mass index (BMI) of 40.0 to 44.9 in adult ([facility]) - ICD9: 278.01, V85.41, ICD10: E66.01, Z68.41 Reduce carbs, increase exercise, weight loss as able. 4. Acquired hypothyroidism - ICD9: 244.9, ICD10: E03.[address] Cunningham for this Plan of care: 1. HbA1C 6.8%, controlled. 2. Medication changes: See below. Continue current insulin regimen until you change to omnipod Ozempic 1mg once weekly (Friday) Your insulin regimen: Long acting insulin: Insulin used for this is called: lantus Bedtime dose 60 units Rapid acting /mealtime insulin: Insulin used for this is called: Humalog Breakfast dose: 14 units Lunchtime dose 14 units Supper dose 14 units Your sliding scale, for additional units of the rapid acting insulin: Insulin used for this is called: humalog Take this at meals, in addition to the above doses. If glucose reading is: 150-175 Take an additional 2 Units. 176-200 Take an additional 2 Units. 201-225 Take an additional 4 Units. 226-250 Take an additional 4 Units. 251-275 Take an additional 6 Units. 276-300 Take an additional 6 Units. 301-325 Take an additional 8 Units. 326-350 Take an additional 8 Units. 351-375 Take an additional 10 Units. 376-400 Take an additional 10 Units. Over 400 Take an additional 12 Units. 3. Total time in direct patient contact = 30 min. Greater than 50% of the time was spent in counseling and/or coordination of care. 4. Self-monitoring blood glucose log sheets were given to the patient. Patient instructed to fill them out and bring to the next visit. 5. Answered all questions. 6. Educated patient on therapeutic lifestyle changes. 7. Patient verbalized understanding of all the above instructions. Some elements may have been copied from previous notes but have been updated where appropriate and all reflect current medical decision making from today Follow up: Return in about 3 months (around 01/11/2023). Francie Britt CNP documented in this encounter [facility] 09-20-2022 Note . MICRO - Microbiology PROCEDURE: Culture Wound Deep Aerobe/Anaerobe w Gram Stain [O1 *1] SOURCE: Wound (deep) BODY SITE: Ankle R COLLECTED DATE/TIME: 09/13/2022 12:43 EST RECEIVED DATE/TIME: 09/13/2022 13:03 EST START DATE/TIME: 09/13/2022 13:04 EST FREE TEXT SOURCE: ANAEROBIC AND AEROBIC RIGHT FOOT-POST IRRIGATION FINAL REPORTS Final Report [] Verified Date/Time/Personnel: 09/20/2022 08:05 EST No growth at 7 days. PRELIMINARY REPORTS Preliminary Report [] Verified Date/Time/Personnel: 09/14/2022 09:16 EST No growth to date STAINS GS [] Verified Date/Time/Personnel: 09/13/2022 14:35 EST No organisms seen. Order Comments O1: Culture Wound Deep Aerobe/Anaerobe w Gram Stain (Wound Deep Culture (Aerobe and Anaerobe) w Gram Stain) [id number] post wash 09/13/2022 13:03:44 EST SLR Performing Locations *1: This test was performed at: [address], [facility]- , [facility] ([place]) 09-20-2022 Note . MICRO - Microbiology PROCEDURE: Culture Wound Deep Aerobe/Anaerobe w Gram Stain [O1 *1] SOURCE: Wound (deep) BODY SITE: Ankle R COLLECTED DATE/TIME: 09/13/2022 12:43 EST RECEIVED DATE/TIME: 09/13/2022 13:03 EST START DATE/TIME: 09/13/2022 13:04 EST FREE TEXT SOURCE: ANAEROBIC AND AEROBIC RIGHT FOOT- PRE IRRIGATION FINAL REPORTS Final Report [] Verified Date/Time/Personnel: 09/20/2022 08:05 EST No growth at 7 days. PRELIMINARY REPORTS Preliminary Report [] Verified Date/Time/Personnel: 09/14/2022 09:16 EST No growth to date STAINS GS [] Verified Date/Time/Personnel: 09/13/2022 14:45 EST Rare Mononuclear cells 4+ Red Blood Cells No organisms seen. Order Comments O1: Culture Wound Deep Aerobe/Anaerobe w Gram Stain (Wound Deep Culture (Aerobe and Anaerobe) w Gram Stain) [id number] Pre wash 09/13/2022 13:03:29 EST SLR Performing Locations *1: This test was performed at: [address], [address]- , [facility] ([place]) 09-17-2022 Miscellaneous Notes Addended by: FRANCIE BRITT on: 09/17/2022 12:02 PM Modules accepted: Orders Change patient to ozempic 1mg once weekly. She may need a PA. I sent a new prescription for humalog as well so we can get an idea of covered alternatives. Please advise patient. Francie Britt APRN, RAZA Pt left a voicemail asking about this Please Advise Courtney Herrera CMA documented in this encounter [facility] 09-13-2022 Hospital Discharg e instructions Patient Education 09/13/2022 13:58:42 [facility] Discharge Instructions Template (05/2018) (CUSTOM) TG SAME DAY SURGERY DISCHARGE INSTRUCTIONS PLEASE FOLLOW THE INSTRUCTIONS BELOW MARKED WITH AN X: _x__ Regular Diet: Start with clear liquids, then soup and crackers and gradually add other foods. _x__ Drink extra fluids. ___ Special Diet Instructions: ___ ACTIVITY: _x__ Avoid stress to suture line. Since you have had an anesthetic, it would be advisable not to drive, drink alcohol, or make major decisions over the next 24 hours. You may require more rest tonight and tomorrow. ___ May resume regular activity as tolerated. ___ Restrict activity as follows: ___ ___ Walk Only ___ ___ Do not go up and down stairs. ___ Do not ride in car until ___ ___ Do not drive car. ___ Do not have sexual intercourse. ___ No heavy lifting, pushing or straining. _x_ Other: _Follow all verbal and written instructions from Dr. Bah__ BATHING/SHOWERING: ___ Sponge bathe until office visit. ___ Sitting in tub of warm water may relieve discomfort. ___ May tub bathe ___ May shower ___ On day after surgery sit in tub of warm water to soak off dressing. DRESSING: ___ Keep operative area dry and clean for ___ ___ Check the operative area for signs of bleeding. Apply pressure to the bleeding site if necessary and call your physician. ___ Change dressing as necessary using sterile dressing material or bandaid. ___ Reinforce dressing as necessary. ___ Change and care for wound as follows: ___ ___ Wear bra for ___ days following breast surgery for comfort. ___ Change drip pad as needed. ___ Wear scrotal support for comfort. WATCH FOR SIGNS OF INFECTION: (Usually appears 36-48 hours after surgery) Increased temperature (101 degrees Fahrenheit or higher) Redness or swelling Increased pain Foul odor or drainage. If you have any questions, please call your doctor at the number listed on your follow up instructions. Follow all instructions given to you by your physician. Please complete and return the survey you will be receiving in the mail to help us better serve our patients. Form: 1522 ([id number]) R: 12/01 Follow Up Care 09/10/2022 11:54:11 With:BLADIMIR BEAULIEU DPM, [facility], Podiatry Service, Wound Care, Wound Care Service Address: [address] [address] [phone] When:09/23/2022 14:45:00 [facility] 09-13-2022 Summary of episod e note Discharge Instructions Thank you for allowing [facility] to assist you with your healthcare needs. The following is important discharge information regarding your hospital visit. Your Care Team RAUL EVANS APRN-[employer] [employer]ER Your Diagnosis Acute post-operative pain What to do next Follow Up Appointments Follow Up with BLADIMIR BEAULIEU DPM, [facility], Podiatry Service, Wound Care, Wound Care Service When 09/23/2022 02:45 PM EST Where: [address] [phone] The Following Equipment Has Been Ordered for You No qualifying data available. Someone Will Contact You Regarding These Home Health Referrals No home referrals have been ordered for you. No one will call you. Allergies Januvia (Tongue swelling) Abilify (Nausea and vomiting, Disoriented) Bactrim (Racing heartbeat, Rash) CeleXA (Nausea and vomiting, Disoriented) Jardiance (Vaginal infection) sulfa drugs (Itching, Rash) trimethoprim (Itching, Rash) Medications Please ask your primary doctor or pharmacist before taking any other medication not listed, including over the counter drugs, herbal medications, vitamins and or supplements as they may interact with your home medications. What How Much When Why Instructions Last Dose New acetaminophen-oxyCODONE (Percocet 5 mg-325 mg oral tablet) 1 tab(s) by mouth Every 6 hours as needed for for pain Acute post-operative pain Duration: 7 Days Pickup at [facility] 5285 09/13/21 at 1:45pm New ascorbic acid (Vitamin C 500 mg oral tablet) 1 tab(s) by mouth Once a day Pickup at [facility] 5285 Changed calcium-vitamin D (Oystercal-D 500 mg-3.125 mcg (125 intl units) oral tablet) 1 tab(s) by mouth Two (2) times a day Pickup at [facility] 52 Unchanged albuterol (albuterol 2.5 mg/ 3 mL (0.083%) inhalation solution) 3 Milliliter Nebulized inhalation Every 6 hours as needed for as needed for wheezing Unchanged albuterol (Ventolin HFA MDI (90 mcg/ inh) inhalation aerosol) 2 puff(s) by inhalation Every 4 hours inhale 2 puffs by mouth every 4 hours if needed Unchanged budesonide-formoterol (Symbicort 160 mcg-4.5 mcg/ inh Inhaler) 2 puff(s) by inhalation Two (2) times a day Unchanged DME (Blood Glucose Test Strips) See instructions DM type 2 with diabetic peripheral neuropathy Freestyle Precision ...use 1 daily Unchanged DME (DME MISCellaneous) See instructions Asthma Tubing for nebulizer Unchanged DME (Pen needles) See instructions 4x daily Unchanged dulaglutide (Trulicity Pen 3 mg/ 0.5 mL subcutaneous solution) 3 Milligram Subcutaneous Every Friday rotate injection sites 12NOON Unchanged famotidine (famotidine 20 mg oral tablet) 1 tab(s) by mouth Two (2) times a day as needed for Reflux Duration: 90 Days Unchanged folic acid (folic acid 1 mg oral tablet) 1 tab(s) by mouth Once a day (in the morning) Unchanged insulin glargine (Lantus Solostar Pen 100 units/ mL 3 mL Pen) 60 unit(s) Subcutaneous Daily at bedtime Unchanged insulin lispro (HumaLOG) (HumaLOG KwikPen (CONCENTRATED) 200 units/ mL PEN) 5 unit(s) Subcutaneous Three (3) times a day Duration: 30 Days SLIDING SCALE Unchanged insulin lispro (HumaLOG) (HumaLOG KwikPen (CONCENTRATED) 200 units/ mL PEN) 14 unit(s) Subcutaneous With breakfast & lunch SUPPER Unchanged levothyroxine (levothyroxine 200 mcg (0.2 mg) oral tablet) 1 tab(s) by mouth Once a day (in the morning) Unchanged LORazepam (Ativan 0.5 mg oral tablet) 1 tab(s) by mouth Two (2) times a day as needed for as needed for anxiety Unchanged losartan (losartan 25 mg oral tablet) 1 tab(s) by mouth Once a day (in the morning) Unchanged meloxicam (meloxicam 15 mg oral tablet) 1 tab(s) by mouth Once a day (in the morning) Unchanged Misc Medication (DEXCOM G6 LITHOGRAPHIC STRIPPER MIS) FOR USE WITH DEXOCN G6 SENSORS Unchanged Misc Medication (DEXCOM G6 LITHOGRAPHIC STRIPPER) Unchanged montelukast (montelukast 10 mg oral tablet) 1 tab(s) by mouth Once a day (in the morning) Unchanged omeprazole (omeprazole 40 mg oral delayed release capsule) 1 cap by mouth Once a day (in the morning) Unchanged OXcarbazepine (OXcarbazepine 150 mg oral tablet, extended release) 1 tab(s) by mouth Daily at bedtime Unchanged pregabalin (Lyrica 75 mg oral capsule) 1 cap by mouth Two (2) times a day Unchanged simvastatin (simvastatin 20 mg oral tablet) 1 tab(s) by mouth Daily at bedtime take 1 tablet by mouth at bedtime Unchanged traMADol (traMADol 50 mg oral tablet) 1 tab(s) by mouth Three (3) times a day as needed for for pain Unchanged vortioxetine (Trintellix 20 mg oral tablet) 1 tab(s) by mouth Daily at bedtime Pharmacy Information [facility] 5285: [address], [place] [phone] Please take this list to your next doctor s visit. Bring all medications you take, including over the counter medications, herbals and other supplements with you to your doctor s visit. Patients and families are reminded to discard old lists and to update any records with all medication providers or retail pharmacies. Education Materials TG SAME DAY SURGERY DISCHARGE INSTRUCTIONS PLEASE FOLLOW THE INSTRUCTIONS BELOW MARKED WITH AN X: _x__ Regular Diet: Start with clear liquids, then soup and crackers and gradually add other foods. _x__ Drink extra fluids. ___ Special Diet Instructions: ___ ACTIVITY: _x__ Avoid stress to suture line. Since you have had an anesthetic, it would be advisable not to drive, drink alcohol, or make major decisions over the next 24 hours. You may require more rest tonight and tomorrow. ___ May resume regular activity as tolerated. ___ Restrict activity as follows: ___ ___ Walk Only ___ ___ Do not go up and down stairs. ___ Do not ride in car until ___ ___ Do not drive car. ___ Do not have sexual intercourse. ___ No heavy lifting, pushing or straining. _x_ Other: _Follow all verbal and written instructions from Dr. Bah__ BATHING/SHOWERING: ___ Sponge bathe until office visit. ___ Sitting in tub of warm water may relieve discomfort. ___ May tub bathe ___ May shower ___ On day after surgery sit in tub of warm water to soak off dressing. DRESSING: ___ Keep operative area dry and clean for ___ ___ Check the operative area for signs of bleeding. Apply pressure to the bleeding site if necessary and call your physician. ___ Change dressing as necessary using sterile dressing material or bandaid. ___ Reinforce dressing as necessary. ___ Change and care for wound as follows: ___ ___ Wear bra for ___ days following breast surgery for comfort. ___ Change drip pad as needed. ___ Wear scrotal support for comfort. WATCH FOR SIGNS OF INFECTION: (Usually appears 36-48 hours after surgery) Increased temperature (101 degrees Fahrenheit or higher) Redness or swelling Increased pain Foul odor or drainage. If you have any questions, please call your doctor at the number listed on your follow up instructions. Follow all instructions given to you by your physician. Please complete and return the survey you will be receiving in the mail to help us better serve our patients. Form: 1525 ([id number]) R: 12/01 Additional Information VACCINATE! IT SAVES LIVES! Members of the community who have not yet received the COVID-19 vaccine and would like to receive it can visit one of [facility] vaccine clinics. There are many vaccine clinic locations within the [facility]. For locations and available times, please visit [email or web address] [email or web address] It is important to note that some COVID mobile vaccine clinics are held outdoors and may be canceled in rainy or stormy conditions. To learn more about pediatric vaccinations (ages 5-11), we invite you to visit the [facility] webpage. [email or web address] To learn more about the COVID-19 vaccine, we invite you to visit the [facility] website for a list of frequently asked questions. [email or web address] [facility] Patient Portal Access Instructions: Stay connected with your healthcare team and access your personal medical information anytime with the [facility] Patient Portal.If you would like a full copy of your medical records, please contact the [facility] Medical Records Department, Friday through Friday between 8a.m. and 4:30p.m. Please follow the directions below to access the portal: 1.Access the email account you provided upon registration to the hospital.2.Look for an invitation email from [facility].3.Open the email and access the invitation link: Accept Invitation to [facility]4.Fill in the required donaldson to create your account. Sign into [email or web address] with your username and password that you created in the above steps to stay up to date. You can then view a summary of results, a summary of your visits, and the ability to download your summaries to your computer or send the information securely to a physician. Remember that your healthcare information is confidential, so carefully consider who you will allow to register on the [facility] Patient Portal for access to your information. You can also access the [facility] Patient Portal on the [employer]. Simply click on Health Records under Health Data and then click on the [employer] logo. HOW TO SAFELY DISPOSE OF PRESCRIPTION MEDICATIONS Please use one of the following methods to safely dispose of your unused medications. 1.Use a drug disposal kit: the drug disposal pouch allows you to safely discard your old and unused drugs. Ask your nurse to give you one when you are discharged.2.Visit a local take-back location: Many local pharmacies and police departments have programs that collect old and unwanted prescription drugs. Call your local pharmacy or go to http://appMobi.Podaddies/0K6Mo1a to find one close to you.3.Make use of household items: Use cat litter or old coffee grounds to dispose medications if other options are not available. Mix your drugs with these household products, seal them in an airtight container and throw it into the garbage. Call [facility]: [phone] to be sure your drugs can be disposed of in this way. Some medicines may require a different approach.4.Never flush your medications down the toilet. IF YOU HAVE BEEN PRESCRIBED AN OPIOID FOR PAIN If you have been prescribed an opioid (such as hydrocodone, oxycodone or morphine), it is critical to understand the possible side effects and risks of opioid pain medications. Even when taken as directed, opioids can have several side effects including: Tolerance, meaning you might need to take more of a medication for the same pain relief. Nausea, vomiting and/or constipation. Sleepiness, dizziness, dry mouth, confusion, depression or itching. Physical dependence, meaning you have withdrawal symptoms when a medication is stopped, can develop within a few days. KNOW YOUR RESPONSIBILITIES It is important to know exactly how much and how often to take the opioid pain medications you are prescribed. Never take opioids in higher amounts or more often than prescribed. Do not combine opioids with alcohol or other drugs that cause drowsiness, such as benzodiazepines, also known as benzos, including diazepam and alprazolam, muscle relaxants or sleep aids. Never sell or share prescription opioids. This is illegal. Store opioids in a secure place and out of reach of others (including children, family, friends and visitors). The last page of this document has been signed and retained as a CHART COPY. Signatures Patient Education Materials 1-SDS Discharge Instructions Template (05/2018) (CUSTOM) Medication Leaflets My discharge plan and instructions have been reviewed and explained to me and IDAYANARA CHRISTINA understand my current condition and have read and understand these discharge instructions. I have received a written copy of the plan/instructions. If I have questions, I am aware that I should contact my doctor. 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 Patient location: PACU. Assessment Postanesthesia assessment Vitals: Vital signs from flowsheet : Vital Signs 09/13/2022 13:18 EST Temperature Temporal Artery 36.2 DegC Heart Rate Monitored 82 bpm Respiratory Rate 16 br/min Systolic Blood Pressure Non-Invasive 108 mmHg Diastolic Blood Pressure Non-Invasive 65 mmHg 09/13/2022 13:06 EST Heart Rate Monitored 80 bpm Respiratory Rate 16 br/min Systolic Blood Pressure Non-Invasive 112 mmHg Diastolic Blood Pressure Non-Invasive 63 mmHg 09/13/2022 12:50 EST Temperature Temporal Artery 36.2 DegC Heart Rate Monitored 85 bpm Respiratory Rate 16 br/min Respiratory Rate - Anes 0 br/min br/min Systolic Blood Pressure Non-Invasive 109 mmHg Diastolic Blood Pressure Non-Invasive 60 mmHg 09/13/2022 12:45 EST Respiratory Rate - Anes 0 br/min br/min 09/13/2022 12:40 EST Temperature (Route Not Specified) 36.5 DegC DegC Heart Rate Monitored 88 bpm bpm Respiratory Rate - Anes 17 br/min br/min 09/13/2022 12:39 EST Systolic Blood Pressure Non-Invasive 106 mmHg mmHg Diastolic Blood Pressure Non-Invasive 56 mmHg mmHg 09/13/2022 12:36 EST Systolic Blood Pressure Non-Invasive 106 mmHg mmHg Diastolic Blood Pressure Non-Invasive 62 mmHg mmHg 09/13/2022 12:35 EST Heart Rate Monitored 87 bpm bpm Respiratory Rate - Anes 17 br/min br/min 09/13/2022 12:33 EST Systolic Blood Pressure Non-Invasive 101 mmHg mmHg Diastolic Blood Pressure Non-Invasive 55 mmHg mmHg 09/13/2022 12:30 EST Temperature (Route Not Specified) 36.5 DegC DegC Heart Rate Monitored 92 bpm bpm Respiratory Rate - Anes 17 br/min br/min Systolic Blood Pressure Non-Invasive 117 mmHg mmHg Diastolic Blood Pressure Non-Invasive 57 mmHg mmHg 09/13/2022 12:27 EST Systolic Blood Pressure Non-Invasive 124 mmHg mmHg Diastolic Blood Pressure Non-Invasive 91 mmHg mmHg 09/13/2022 12:25 EST Heart Rate Monitored 87 bpm bpm Respiratory Rate - Anes 0 br/min br/min 09/13/2022 12:24 EST Systolic Blood Pressure Non-Invasive 116 mmHg mmHg Diastolic Blood Pressure Non-Invasive 72 mmHg mmHg 09/13/2022 12:21 EST Systolic Blood Pressure Non-Invasive 122 mmHg mmHg Diastolic Blood Pressure Non-Invasive 59 mmHg mmHg 09/13/2022 12:20 EST Heart Rate Monitored 80 bpm bpm Respiratory Rate - Anes 13 br/min br/min 09/13/2022 12:18 EST Systolic Blood Pressure Non-Invasive 128 mmHg mmHg Diastolic Blood Pressure Non-Invasive 73 mmHg mmHg 09/13/2022 12:15 EST Temperature (Route Not Specified) 36.5 DegC DegC Heart Rate Monitored 84 bpm bpm Respiratory Rate - Anes 29 br/min br/min 09/13/2022 12:10 EST Heart Rate Monitored 87 bpm bpm Respiratory Rate - Anes 28 br/min br/min 09/13/2022 12:05 EST Heart Rate Monitored 88 bpm bpm Respiratory Rate - Anes 11 br/min br/min 09/13/2022 12:02 EST Temperature (Route Not Specified) 36.5 DegC DegC 09/13/2022 12:00 EST Respiratory Rate - Anes 23 br/min br/min 09/13/2022 11:59 EST Systolic Blood Pressure Non-Invasive 136 mmHg mmHg Diastolic Blood Pressure Non-Invasive 71 mmHg mmHg 09/13/2022 9:55 EST Temperature Temporal Artery 36.8 DegC Apical Heart Rate 88 bpm Respiratory Rate 18 br/min Systolic Blood Pressure Non-Invasive 122 mmHg Diastolic Blood Pressure Non-Invasive 78 mmHg . Mental status: at preoperative baseline. Respiratory function: respirations are non-labored, Stable. Respiratory support: none. CV function: Stable. Cardiovascular support: none. Pain: Satisfactory. Nausea status: Satisfactory. Postoperative hydration status: within normal limits. Notes: Patient is sufficiently recovered from anesthesia to participate in the evaluation. No follow-up care needed. No complications post-anesthesia.. Digitally Signed by TONY DAY MD on 09/13/2022 01:40 PM [facility] 09-13-2022 Anesthesiology Consult note Patient: MACHELLE FRIEDMAN Age: 52 years Sex: Female : 1970 Associated Diagnoses: None Author: ODILON VIDAL DO Preoperative Information Time of last food or liquid consumption: 09/12/2022 22:00:00 Anesthesia history Patient's history: negative. Family's history: negative. Review of Systems Respiratory: Sleep apnea, asthma. Cardiovascular: Negative. Gastrointestinal: Reflux. Genitourinary: Negative. Endocrine: hypothyroid, DM, h/o thyroid CA. Integumentary: obesity. Neurologic: bipolar, anxiety. Health Status Allergies: Allergic Reactions (Selected) Severe Januvia- Tongue swelling. Severity Not Documented Abilify- Nausea and vomiting and disoriented. Bactrim- Racing heartbeat and rash. CeleXA- Nausea and vomiting and disoriented. Sulfa drugs- Rash and itching. Trimethoprim- Itching and rash. Nonallergic Reactions (Selected) Severity Not Documented Jardiance- Vaginal infection., Allergies (7) ActiveReaction JanuviaTongue swelling AbilifyNausea and vomiting BactrimRacing heartbeat CeleXADisoriented JardianceVaginal infection sulfa drugsItching trimethoprimRash Current medications: (Selected) Inpatient Medications Ordered LR 1,000 mL: Start: 09/13/22 5:00:00 EST, Rate: 20 mL/hr, 09/13/22 5:00:00 EST Prescriptions Prescribed Blood Glucose Test Strips: See Instructions, [facility] ...use 1 daily, # 100 EA, 0 Refill(s), Pharmacy: [facility], DM type 2 with diabetic peripheral neuropathy DME MISCellaneous: See Instructions, Tubing for nebulizer, # 1 EA, 0 Refill(s), Pharmacy: [facility], Asthma Oystercal-D 500 mg-3.125 mcg (125 intl units) oral tablet: Dose = 1 tab(s), Oral, BID, # 100 tab(s), 0 Refill(s), [facility]: [id number], 165.1, cm, 06/14/22 6:33:00 EDT, Height Pen needles: See Instructions, 4x daily, # 1 EA, 11 Refill(s), Pharmacy: [facility], 165.1, cm, 10/27/19 10:08:00 EST, Height, 108.45, kg, 10/27/19 10:08:00 EST, Dosing Weight Symbicort 160 mcg-4.5 mcg/inh Inhaler: Dose = 2 puff(s), Inhalation, BID, # 3 EA, 3 Refill(s), Pharmacy: [facility] Ventolin HFA MDI (90 mcg/inh) inhalation aerosol: 2 puff(s), Inhalation, q4h, inhale 2 puffs by mouth every 4 hours if needed, # 3 EA, 3 Refill(s), Pharmacy: [facility] albuterol 2.5 mg/3 mL (0.083%) inhalation solution: Dose : 2.5 mg = 3 mL, Nebulized, q6hr, PRN as needed for wheezing, # 360 mL, 2 Refill(s), Pharmacy: [facility] famotidine 20 mg oral tablet: Dose : 20 mg = 1 tab(s), Oral, BID, PRN Reflux, # 180 tab(s), 0 Refill(s), Pharmacy: [facility], 165.1, cm, 10/27/19 10:08:00 EST, Height, kg, 10/27/19 10:08:00 EST, Dosing Weight folic acid 1 mg oral tablet: Dose : 1 mg = 1 tab(s), Oral, qAM, # 90 tab(s), 3 Refill(s), Pharmacy: [facility] losartan 25 mg oral tablet: Dose : 25 mg = 1 tab(s), Oral, qAM, # 90 tab(s), 3 Refill(s), Pharmacy: [facility] montelukast 10 mg oral tablet: Dose : 10 mg = 1 tab(s), Oral, qAM, # 90 tab(s), 3 Refill(s), Pharmacy: [facility] mupirocin 2% topical ointment: Apply 1 mao, Topical, BID, Bilateral intranasal application twice daily for 5 days prior to surgery &/or as many days leading up to surgery as possible due to surgical urgency/scheduling. Send to patient's preferred pharmacy., Apply to: nostril, each,... simvastatin 20 mg oral tablet: Dose : 20 mg = 1 tab(s), Oral, qHS, take 1 tablet by mouth at bedtime, # 90 tab(s), 3 Refill(s), Pharmacy: [facility] Documented Medications Documented Ativan 0.5 mg oral tablet: Dose : 0.5 mg = 1 tab(s), Oral, BID, PRN as needed for anxiety, 0 Refill(s), 108.45 DEXCOM G6 LITHOGRAPHIC STRIPPER MIS: FOR USE WITH DEXOCN G6 SENSORS DEXCOM G6 LITHOGRAPHIC STRIPPER: DEXCOM G6 LITHOGRAPHIC STRIPPER, 0 Refill(s), 118.7 HumaLOG KwikPen (CONCENTRATED) 200 units/mL PEN: Dose : 14 unit(s) =, Subcutaneous, breakfast/lunch, SUPPER, # 5 EA, 0 Refill(s), PEN HumaLOG KwikPen (CONCENTRATED) 200 units/mL PEN: Dose : 5 unit(s) =, Subcutaneous, TID, SLIDING SCALE, # 5 EA, 0 Refill(s), PEN Lantus Solostar Pen 100 units/mL 3 mL Pen: Dose : 60 unit(s) =, Subcutaneous, qHS, # 3 mL, 0 Refill(s) Lyrica 75 mg oral capsule: Dose : 75 mg = 1 cap(s), Oral, BID, # 60 cap(s), 0 Refill(s), 108.45 OXcarbazepine 150 mg oral tablet, extended release: Dose : 150 mg = 1 tab(s), Oral, qHS, # 30 tab(s), 0 Refill(s) Trintellix 20 mg oral tablet: Dose : 20 mg = 1 tab(s), Oral, qHS, # 30 tab(s), 0 Refill(s) Trulicity Pen 3 mg/0.5 mL subcutaneous solution: Dose : 3 mg =, Subcutaneous, Friday, rotate injection sites 12NOON, # 2 mL, 0 Refill(s) levothyroxine 200 mcg (0.2 mg) oral tablet: Dose : 200 mcg = 1 tab(s), Oral, qAM, # 30 tab(s), 0 Refill(s) meloxicam 15 mg oral tablet: Dose : 15 mg = 1 tab(s), Oral, qAM, # 30 tab(s), 0 Refill(s) omeprazole 40 mg oral delayed release capsule: Dose : 40 mg = 1 cap(s), Oral, qAM, # 30 cap(s), 0 Refill(s) traMADol 50 mg oral tablet: Dose : 50 mg = 1 tab(s), Oral, TID, PRN for pain, # 12 tab(s), 0 Refill(s), 108.45, Medications (1) Active Scheduled: (0) Continuous: (1) Lactated Ringers 1,000 mL 1,000 mL, Intravenous, 20 mL/hr PRN: (0) Problem list: Medical Abdominal pain / SNOMED CT 08271573 / Confirmed Anxiety / SNOMED CT 00245447 / Confirmed Asthma / SNOMED CT 092864667 / Confirmed Bereavement / SNOMED CT 880541869 / Confirmed BIPAP - Biphasic pressure airway support / SNOMED CT 321234634 / Confirmed Bipolar disorder / SNOMED CT 55254202 / Confirmed Depression / SNOMED CT 68003483 / Confirmed Diabetes mellitus type 2 / SNOMED CT 708775529 / Confirmed Lower leg edema / SNOMED CT 822952986 / Confirmed Fibromyalgia / SNOMED CT 959292652 / Confirmed Acid reflux / SNOMED CT 226769875 / Confirmed Hyperlipidemia / SNOMED CT 34843322 / Confirmed Hypothyroidism / SNOMED CT 62733650 / Confirmed Elevated hemoglobin / SNOMED CT 482391650 / Confirmed Indigestion / SNOMED CT 343586755 / Confirmed Knee pain / SNOMED CT 83530185 / Confirmed Cancer of thyroid / SNOMED CT 788641554 / Confirmed Need for influenza vaccination / SNOMED CT 394002711 / Confirmed Class 2 obesity / SNOMED CT 853636981700356 / Confirmed MAGALY (obstructive sleep apnea) / SNOMED CT 331157557 / Confirmed Medicare annual wellness visit, subsequent / SNOMED CT 108120241 / Confirmed Screening for breast cancer / SNOMED CT 735465248 / Confirmed DM type 2 with diabetic peripheral neuropathy / SNOMED CT 9908750061 / Confirmed Sleep apnea / SNOMED CT 450180543 / Confirmed, Active Problems (32) Abdominal pain Acid reflux Anxiety Asthma Bereavement BiPAP (biphasic positive airway pressure) dependence BIPAP - Biphasic pressure airway support Bipolar disorder Broken teeth Cancer of thyroid Chronic foot ulcer Class 2 obesity Depression Diabetes mellitus type 2 Diabetes mellitus with diabetic polyneuropathy DM type 2 with diabetic peripheral neuropathy Elevated hemoglobin Fibromyalgia Glasses Hyperlipidemia Hypothyroidism Indigestion Knee pain Lower leg edema Medicare annual wellness visit, subsequent Need for influenza vaccination MAGALY (obstructive sleep apnea) Panic attack Screening for breast cancer Sleep apnea Uses self-applied continuous glucose monitoring device Vitamin D deficiency Histories Past Medical History: Resolved Thyroid nodule (106689106): Resolved. LAD (lymphadenopathy), axillary (388673): Resolved. Pain in right arm (291608182): Resolved. Procedure history: Fusion of joint of ankle (831271642) in the month of 05/2022 at 51 Years. Comments: 09/11/2022 9:48 Gualberto Chavez RN RIGHT Other ([id number]) in 2019 at 49 Years. Comments: 07/30/2019 8:35 MARIA LUISA Kaba iodine radiation - thyroid section (44693132). section (43246964). Cholecystectomy (53466081). Other ([id number]). Comments: 11/03/2018 12:51 Shannan Rizo MA ENT Surgery: nasal D&C - Dilatation and curettage ([id number]). Comments: 11/03/2018 12:51 Shannan Rizo MA CER[employer]IC PLATER Surgery and cryo Tubal ligation ([id number]). Other ([id number]). Comments: 11/03/2018 12:52 Shannan Rizo MA Orthopedic Surgery: right ankle Other ([id number]). Comments: 06/14/2022 6:28 Arianna Rizo RN pt states rt ankle only 11/03/2018 12:52 Shannan Rizo MA Orthopedic Surgery: both ankles Osteotomy ([id number]). Comments: 05/31/2022 10:58 TIERRA Murillo has had surgery x3 11/03/2018 12:53 Shannan Rizo MA calcaneal osteomy right heel Arthroscopic knee operation ([id number]). Comments: 05/31/2022 10:59 TIERRA Murillo right and left Colonoscopy ([id number]). Endometrial laser ablation (616016913). Deviated nasal septum (106792387). Social History Social & Psychosocial Habits Alcohol 05/26/2019Risk Assessment: Denies Alcohol Use 10/27/2019 Use: Never Substance Abuse 05/26/2019Risk Assessment: Denies Substance Abuse 05/31/2022 Use: Never Tobacco 11/03/2018 Tobacco Use: Never (less than 100 in l 05/26/2019Risk Assessment: Denies Tobacco Use Home/Environment 05/31/2022 Domestic Concerns None Living situation: Home/Independent Safe place to go: Yes Lives In 1st floor bathroom, 1st floor bedroom, Multilevel home Current Home Treatments Blood Glucose monitoring, Nebulizer treatments, bipap, rolator, Special Services and Community Resources None Spouse Name yokasta Marital Status of Patient if Patient Independent Adult: Nutrition/Health 05/31/2022 Type of diet: Diabetic Appetite Good Eating Difficulties None . Physical Examination Vital Signs(last 24 hrs) Last Charted Resp Rate 18 br/min (SEP 13 09:55) CGH455 mmHg (SEP 13 09:55) DBP78 mmHg (SEP 13 09:55) Measurements from flowsheet : Measurements 09/13/2022 9:55 EST Height 165.1 cm Height in inches 65 inch(es) Admission Weight 117.9 kg Weight Lbs 259.4 lb Weight Method Actual [place] Body Weight 57.00 kg Type of Scale Used Bed scale Admission Body Mass Index 43.25 m2 General: Alert and oriented. Airway: Normal temporomandibular joint mobility, Normal mouth, Normal throat. Dentition Evaluation: Own teeth, broken tooth upper right side. Respiratory: Lungs are clear to auscultation. Cardiovascular: Normal rate. Heart Sounds: Normal. Neurologic: Alert, Oriented. Assessment and Plan [place] [employer] Anesthesiologists (ASA) physical status classification: Class III. Anesthetic Preoperative Plan Anesthetic technique: MAC. Maintenance airway: spontaneous. Postoperative pain management: Per surgeon. Risks discussed: nausea, vomiting, headache, sore throat, dental injury, hypotension, allergic reaction, serious complications. Informed consent: signed by patient. Notes: Patient has a h/o MAGALY, asthma, DM, obesity, anxiety, bipolar disease. Discussed MAC and general anesthesia only if necessary and she agrees to proceed.. Digitally Signed by ODILON VIDAL DO on 09/13/2022 11:48 AM [facility] 09-03-2022 Miscellaneous Notes Patient on schedule to see Dr. Cunningham 09/03/2022. 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 Date : 05/28/2023 Courtney Herrera CMA documented in this encounter [facility] 09-02-2022 Gino Britt APRN.CNP - 09/02/2022 9:59 AM EST Continue trulicity 3mg once weekly Your new insulin regimen: Long acting insulin: Insulin used for this is called: lantus Bedtime dose 60 units Rapid acting /mealtime insulin: Insulin used for this is called: Humalog Breakfast dose: 14 units Lunchtime dose 14 units Supper dose 14 units Your sliding scale, for additional units of the rapid acting insulin: Insulin used for this is called: humalog Take this at meals, in addition to the above doses. If glucose reading is: 150-175 Take an additional 2 Units. 176-200 Take an additional 2 Units. 201-225 Take an additional 4 Units. 226-250 Take an additional 4 Units. 251-275 Take an additional 6 Units. 276-300 Take an additional 6 Units. 301-325 Take an additional 8 Units. 326-350 Take an additional 8 Units. 351-375 Take an additional 10 Units. 376-400 Take an additional 10 Units. Over 400 Take an additional 12 Units. documented in this encounter [facility] 09-02-2022 History of Presen t illness Narrative Rebecca Carty is a 52 year old female who presents for diabetes management. Timeline: Timeline: dx type 2 diabetes ~1999 Complications: (+) retinopathy, (+) neuropathy, (-) nephropathy Course: has been on insulin for several years. Has followed with Dr Irwin and Dr Cunningham. She continues to follow with Dr Cunningham for thyroid. First visit with me for diabetes management 03/2022. Current medications for diabetes: trulicity 3mg once weekly Your insulin regimen: Long acting insulin: Insulin used for this is called: lantus Bedtime dose 70 units Rapid acting /mealtime insulin: Insulin used for this is called: humalog Breakfast dose: SS only Lunchtime dose SS only Supper dose SS only Your sliding scale, for additional units of the rapid acting insulin: Insulin used for this is called: humalog Take this at meals, in addition to the above doses. If glucose reading is: 150-175 Take an additional 3 Units. 176-200 Take an additional 3 Units. 201-225 Take an additional 6 Units. 226-250 Take an additional 6 Units. 251-275 Take an additional 9 Units. 276-300 Take an additional 9 Units. 301-325 Take an additional 12 Units. 326-350 Take an additional 12 Units. 351-375 Take an additional 15 Units. 376-400 Take an additional 15 Units. Over 400 Take an additional 18 Units. Previous medications for diabetes: Intolerant to metformin and glipizide stopped when she started insulin Today's visit: Patient presents today for routine diabetes followup. A1c has worsened since last seen. She is using a emmanuel CGM but limited scanning. States that she is doing 10-16 units humalog with meals. She did have R foot surgery. Following with podiatry for wound care. TIR:82% High:13% Very High:1% Low: 2% Very Low: 2% Limited scans but having some overnight lows. ___ Typical day/occupation: On disability Diet: Typically eats 3 meals daily. Breakfast: toast and diet coke zero. Lunch: 1/2 sandwich with turkey and yogurt. Supper: varies, cooks for children sometimes lots of noodles Exercise/activity: No regular exercise Hypertension and lipids managed by PCP Denies frequent periods of hypoglycemia. Patient verbalized understanding of the signs and symptoms of hypoglycemia and its treatment options. Important Diabetes Lab History: HBA1C: 01/2020 6.8%. 07/2020 6.5%. 01/2021 6.9%. 10/2021 6.6%. 12/2021 7.1%. 03/2022 7.3%. 08/2021 8.2% Thyroid Function Testing: managed by Dr Cunningham TSH 12/2021 0.205 (currently taking synthroid 175mcg daily, holding once weekly) Renal Function Testin12/2021 creatinine 0.69 GFR >60 Urine for Microalbumin: 12/2018 Not detected Lipid Profile: 12/2021 TC 117 HDL 41 LDL 60 TG 82 Liver Profile: 12/2021 Alk Phos 82 AST 19 ALT 23 Important Diabetes Maintenance: Eye Exam: Patient educated to have ophthalmology visits at least once a year. Foot Exam: 03/2022 Review of Systems Constitutional: Negative for chills, diaphoresis, fever, malaise/fatigue and weight loss. HENT: Negative for congestion, nosebleeds and sore throat. Eyes: Negative for blurred vision, pain and discharge. Respiratory: Negative for cough, hemoptysis, sputum production, shortness of breath and wheezing. Cardiovascular: Negative for chest pain, palpitations, orthopnea and leg swelling. Gastrointestinal: Negative for abdominal pain, blood in stool, constipation, diarrhea, heartburn, nausea and vomiting. Genitourinary: Negative for dysuria, frequency, hematuria and urgency. Musculoskeletal: Negative for back pain, joint pain and myalgias. Skin: Negative for itching and rash. Neurological: Negative for dizziness, tingling, loss of consciousness and headaches. Endo/Heme/Allergies: Negative for polydipsia. Psychiatric/Behavioral: Negative for depression and suicidal ideas. The patient is not nervous/anxious and does not have insomnia. PAST MEDICAL HISTORY Diagnosis Date Asthma Depression Hyperlipidemia Hypothyroidism MAGALY (obstructive sleep apnea) Thyroid cancer (HCC) 12/26/2017 Type 2 diabetes mellitus (HCC) PAST SURGICAL HISTORY Procedure Laterality Date SECTION MULTI>2 CHOLECYSTECTOMY D AND C Diagnostic LAD INITIAL LAPAROSCOPIC FIBROID ABLATION PAST SURGICAL HISTORY OF x3 Bilateral PAST SURGICAL HISTORY OF [place] repair and alignment PAST SURGICAL HISTORY OF Uterine surgery REMOVAL OF THYROID RHINOPLASTY TUBAL LIGATION HX FAMILY HISTORY Problem Relation Age of Onset Cataract Father Diabetes Father Cancer Father Prostate Leukemia Father Heart Attack Father other (Other) Father Abnormal Heart Beat Cataract Mother Diabetes Mother other (Other) Mother Abnormal Heart Baet Multiple Sclerosis Sister Cancer Sister Lung Diabetes Brother Detached Retina Brother Macular Degen Maternal Grandmother Diabetes Maternal Grandmother Diabetes Paternal Grandmother Social History Tobacco Use Smoking status: Never Passive exposure: Past Smokeless tobacco: Never Vaping Use Vaping Use: Never used Substance Use Topics Alcohol use: Never Drug use: Never Current Meds fluconazole (DIFLUCAN) 150 mg tablet 1 tablet by mouth. Repeat in 3 days. OXcarbazepine (TRILEPTAL) 150 mg tablet Take 150 mg by mouth twice daily. pregabalin (LYRICA) 75 mg capsule Take 75 mg by mouth twice daily. traMADol (ULTRAM) 50 mg tablet Take 50 mg by mouth three times daily as needed for pain. MofiboE 14 DAY SENSOR kit Inject 1 Each subcutaneously every 2 weeks. aspirin 81 mg cap Take 1 capsule by mouth once daily. TRINTELLIX 10 mg tablet 20 mg. LORazepam (ATIVAN) 0.5 mg Take by mouth. losartan (COZAAR) 25 mg tablet Take 25 mg by mouth once daily. folic acid 1 mg tablet Take 1 mg by mouth once daily. meloxicam (MOBIC) 15 mg tablet Take 15 mg by mouth once daily. montelukast (SINGULAIR) 10 mg tablet Take 10 mg by mouth daily at bedtime. Omeprazole 40 mg capsule Take 40 mg by mouth once daily. simvastatin (ZOCOR) 20 mg tablet Take 20 mg by mouth daily at bedtime. budesonide-formoterol (SYMBICORT) 160-4.5 mcg/actuation inhaler Inhale 2 Puffs as instructed twice daily. albuterol HFA (PROVENTIL HFA, VENTOLIN HFA) 90 mcg/actuation inhaler Inhale 2 Puffs as instructed every 6 hours as needed. insulin lispro (HUMALOG KWIKPEN INSULIN) 200 unit/mL (3 mL) injection Inject 14 Units subcutaneously three times daily before meals. Inject on sliding scale three times daily with meals, max daily dose of 100u semaglutide (OZEMPIC) 1 mg/dose (4 mg/3 mL) pen Inject 1 mg subcutaneously one time a week. levothyroxine (SYNTHROID) 200 mcg tablet TAKE 1 TABLET BY MOUTH ONCE DAILY insulin glargine (LANTUS SOLOSTAR U-100 INSULIN) 100 unit/mL (3 mL) Inject 60 Units subcutaneously daily at bedtime. LANTUS NAME BRAND NOT GENERIC Blood-Glucose Sensor (DEXCOM G6 SENSOR) xavi Change sensor every 10 days Blood-Glucose Transmitter (DEXCOM G6 TRANSMITTER) xavi Change transmitter every 90 days Blood-Glucose Meter,Continuous (DEXCOM G6 LITHOGRAPHIC STRIPPER) [facility] [place] use with dexcom g6 sensors famotidine (PEPCID) 20 mg tablet (Patient not taking: No sig reported) DULoxetine (CYMBALTA) 20 mg capsule Take 1 capsule by mouth twice daily. (Patient not taking: No sig reported) vortioxetine (TRINTELLIX) 5 mg tablet Take 5 mg by mouth once daily. (Patient not taking: No sig reported) albuterol (PROVENTIL) 2.5 mg/3 mL nebulizer solution Inhale 2.5 mg as instructed as directed. (Patient not taking: No sig reported) Objective BP 111/76 (BP Site: Left Arm, BP Position: Sitting, BP Cuff Size: Large Adult) Pulse 99 Ht 165.1 cm (5' 5 ) Wt 120.2 kg (265 lb) SpO2 96% BMI 44.10 kg/m Physical Exam Constitutional: General: She is not in acute distress. HENT: Head: Normocephalic and atraumatic. Eyes: General: No scleral icterus. Conjunctiva/sclera: Conjunctivae normal. Pupils: Pupils are equal, round, and reactive to light. Cardiovascular: Rate and Rhythm: Normal rate and regular rhythm. Heart sounds: Normal heart sounds. No murmur heard. Pulmonary: Effort: Pulmonary effort is normal. No respiratory distress. Breath sounds: Normal breath sounds. No wheezing or rales. Chest: Chest wall: No tenderness. Abdominal: General: There is no distension. Palpations: Abdomen is soft. Tenderness: There is no abdominal tenderness. There is no rebound. Musculoskeletal: General: No tenderness. Cervical back: Neck supple. Feet: Comments: R foot is wrapped and in a boot Lymphadenopathy: Cervical: No cervical adenopathy. Skin: General: Skin is warm and dry. Findings: No rash. Neurological: Mental Status: She is alert and oriented to person, place, and time. Cranial Nerves: No cranial nerve deficit. Gait: Gait is intact. Psychiatric: Mood and Affect: Mood and affect normal. Cognition and Memory: Memory normal. Judgment: Judgment normal. Plan ASSESSMENT/PLAN: 1. Type 2 diabetes mellitus with hyperglycemia, with long-term current use of insulin ([facility]) - ICD9: 250.00, 790.29, V58.67, ICD10: E11.65, Z79.4 (primary diagnosis) A1c not done today, 8.2% 6 days ago. Worsened since last checked. Above goal of <7%. Limited scans of emmanuel, will change her to dexTopiVert for better data collections. - TRULICITY 3 MG/0.5 ML SUBCUTANEOUS PEN INJECTOR - INSULIN GLARGINE (U-100) 100 UNIT/ML (3 ML) SUBCUTANEOUS PEN - HUMALOG KWIKPEN U-200 INSULIN 200 UNIT/ML (3 ML) SUBCUTANEOUS - DEXCOM G6 SENSOR DEVICE - DEXCOM G6 TRANSMITTER DEVICE - DEXCOM G6 LITHOGRAPHIC STRIPPER MISC 2. High risk medication use - ICD9: V58.69, ICD10: Z79.899 Insulin - continue 3. Class 3 severe obesity due to excess calories with serious comorbidity and body mass index (BMI) of 40.0 to 44.9 in adult ([facility]) - ICD9: 278.01, V85.41, ICD10: E66.01, Z68.41 Reduce carbs, increase exercise, weight loss as able. 4. Acquired hypothyroidism - ICD9: 244.9, ICD10: E03.9 Well replaced - LEVOTHYROXINE 175 MCG TABLET 5. Papillary microcarcinoma of thyroid ([facility]) - ICD9: 193, ICD10: C[address] Cunningham. - LEVOTHYROXINE 175 MCG TABLET Plan of care: 1. HbA1C 8.2%, worsening control. 2. Medication changes: See below. Continue trulicity 3mg once weekly Your new insulin regimen: Long acting insulin: Insulin used for this is called: lantus Bedtime dose 60 units Rapid acting /mealtime insulin: Insulin used for this is called: Humalog Breakfast dose: 14 units Lunchtime dose 14 units Supper dose 14 units Your sliding scale, for additional units of the rapid acting insulin: Insulin used for this is called: humalog Take this at meals, in addition to the above doses. If glucose reading is: 150-175 Take an additional 2 Units. 176-200 Take an additional 2 Units. 201-225 Take an additional 4 Units. 226-250 Take an additional 4 Units. 251-275 Take an additional 6 Units. 276-300 Take an additional 6 Units. 301-325 Take an additional 8 Units. 326-350 Take an additional 8 Units. 351-375 Take an additional 10 Units. 376-400 Take an additional 10 Units. Over 400 Take an additional 12 Units. 3. Total time in direct patient contact = 30 min. Greater than 50% of the time was spent in counseling and/or coordination of care. 4. Self-monitoring blood glucose log sheets were given to the patient. Patient instructed to fill them out and bring to the next visit. 5. Answered all questions. 6. Educated patient on therapeutic lifestyle changes. 7. Patient verbalized understanding of all the above instructions. Some elements may have been copied from previous notes but have been updated where appropriate and all reflect current medical decision making from today Follow up: Return in about 6 weeks (around 10/14/2022). Francie Britt CNP documented in this encounter [facility] 06-14-2022 Hospital Discharg e instructions Patient Education 06/14/2022 19:16:00 [facility] Discharge Instructions Template (05/2018)(CUSTOM) TG SAME DAY SURGERY DISCHARGE INSTRUCTIONS PLEASE FOLLOW THE INSTRUCTIONS BELOW MARKED WITH AN X: _x__ Regular Diet: Start with clear liquids, then soup and crackers and gradually add other foods. _x__ Drink extra fluids. ___ Special Diet Instructions: ___ ACTIVITY: _x__ Avoid stress to suture line. Since you have had an anesthetic, it would be advisable not to drive, drink alcohol, or make major decisions over the next 24 hours. You may require more rest tonight and tomorrow. ___ May resume regular activity as tolerated. ___ Restrict activity as follows: ___ ___ Walk Only ___ ___ Do not go up and down stairs. ___ Do not ride in car until ___ ___ Do not drive car. ___ Do not have sexual intercourse. ___ No heavy lifting, pushing or straining. _x__ Other: _Follow all instructions provided to you by Dr. Beaulieu. Call office with any questions or concerns. __ BATHING/SHOWERING: _x__ Sponge bathe until office visit. ___ Sitting in tub of warm water may relieve discomfort. ___ May tub bathe ___ May shower ___ On day after surgery sit in tub of warm water to soak off dressing. DRESSING: ___ Keep operative area dry and clean for ___ _x__ Check the operative area for signs of bleeding. Apply pressure to the bleeding site if necessary and call your physician. ___ Change dressing as necessary using sterile dressing material or bandaid. ___ Reinforce dressing as necessary. ___ Change and care for wound as follows: ___ ___ Wear bra for ___ days following breast surgery for comfort. ___ Change drip pad as needed. ___ Wear scrotal support for comfort. WATCH FOR SIGNS OF INFECTION: (Usually appears 36-48 hours after surgery) Increased temperature (101 degrees Fahrenheit or higher) Redness or swelling Increased pain Foul odor or drainage. If you have any questions, please call your doctor at the number listed on your follow up instructions. Follow all instructions given to you by your physician. Please complete and return the survey you will be receiving in the mail to help us better serve our patients. Form: [id number] ([id number]) R: 12/01 Follow Up Care 03/29/2022 12:13:15 With:BLADIMIR BEAULIEU DPM, [facility], Podiatry Service, Wound Care, Wound Care Service Address: [facility] [address] [place] [address] & [place] [phone] When: Unknown Comments:Follow-up as scheduled [facility] 06-14-2022 Anesthesiology Consult note Patient: MACHELLE FRIEDMAN Age: 51 years Sex: Female : 1970 Associated Diagnoses: None Author: BURTON ANTOINE MD Postoperative Information Post Operative Info: Post op day: Post Anesthesia Care Unit. Patient location: PACU. Assessment Postanesthesia assessment Vitals: Vital signs from flowsheet : Vital Signs 06/14/2022 19:07 EDT Temperature Temporal Artery 36.0 DegC Apical Heart Rate 90 bpm Respiratory Rate 18 br/min Systolic Blood Pressure 123 mmHg Diastolic Blood Pressure 69 mmHg Mean Arterial Pressure 87 mmHg Reason For Taking VItal Signs Routine 06/14/2022 18:49 EDT Temperature Temporal Artery 36 DegC Heart Rate Monitored 94 bpm Respiratory Rate 18 br/min Systolic Blood Pressure NBP 136 mmHg Diastolic Blood Pressure NBP 77 mmHg Mean Arterial Pressure (NBP) 91 mmHg 06/14/2022 18:35 EDT Heart Rate Monitored 99 bpm Respiratory Rate 18 br/min Systolic Blood Pressure NBP 144 mmHg HI Diastolic Blood Pressure NBP 75 mmHg Mean Arterial Pressure (NBP) 91 mmHg 06/14/2022 18:20 EDT Heart Rate Monitored 91 bpm Respiratory Rate 18 br/min Systolic Blood Pressure NBP 148 mmHg HI Diastolic Blood Pressure NBP 81 mmHg Mean Arterial Pressure (NBP) 94 mmHg 06/14/2022 18:04 EDT Temperature Temporal Artery 36 DegC Heart Rate Monitored 93 bpm Respiratory Rate 20 br/min Systolic Blood Pressure NBP 142 mmHg HI Diastolic Blood Pressure NBP 76 mmHg Mean Arterial Pressure (NBP) 89 mmHg 06/14/2022 18:00 EDT Heart Rate Monitored 98 bpm bpm Respiratory Rate 12 br/min br/min 06/14/2022 17:58 EDT Systolic Blood Pressure NBP 157 mmHg mmHg Diastolic Blood Pressure NBP 96 mmHg mmHg 06/14/2022 17:55 EDT Heart Rate Monitored 87 bpm bpm Respiratory Rate 20 br/min br/min Systolic Blood Pressure NBP 127 mmHg mmHg Diastolic Blood Pressure NBP 68 mmHg mmHg 06/14/2022 17:52 EDT Systolic Blood Pressure NBP 132 mmHg mmHg Diastolic Blood Pressure NBP 77 mmHg mmHg 06/14/2022 17:50 EDT Heart Rate Monitored 82 bpm bpm Respiratory Rate 15 br/min br/min 06/14/2022 17:49 EDT Systolic Blood Pressure NBP 124 mmHg mmHg Diastolic Blood Pressure NBP 69 mmHg mmHg 06/14/2022 17:46 EDT Systolic Blood Pressure NBP 118 mmHg mmHg Diastolic Blood Pressure NBP 67 mmHg mmHg 06/14/2022 17:45 EDT Temperature (Route Not Specified) 37.11 DegC DegC Heart Rate Monitored 74 bpm bpm Respiratory Rate 18 br/min br/min 06/14/2022 17:43 EDT Systolic Blood Pressure NBP 106 mmHg mmHg Diastolic Blood Pressure NBP 60 mmHg mmHg 06/14/2022 17:40 EDT Temperature (Route Not Specified) 37.03 DegC DegC Heart Rate Monitored 74 bpm bpm Respiratory Rate 19 br/min br/min Systolic Blood Pressure NBP 104 mmHg mmHg Diastolic Blood Pressure NBP 58 mmHg mmHg 06/14/2022 17:37 EDT Systolic Blood Pressure NBP 105 mmHg mmHg Diastolic Blood Pressure NBP 54 mmHg mmHg 06/14/2022 17:35 EDT Temperature (Route Not Specified) 37.06 DegC DegC Heart Rate Monitored 74 bpm bpm Respiratory Rate 19 br/min br/min 06/14/2022 17:34 EDT Systolic Blood Pressure NBP 97 mmHg mmHg Diastolic Blood Pressure NBP 55 mmHg mmHg 06/14/2022 17:31 EDT Systolic Blood Pressure NBP 99 mmHg mmHg Diastolic Blood Pressure NBP 57 mmHg mmHg 06/14/2022 17:30 EDT Temperature (Route Not Specified) 37.22 DegC DegC Heart Rate Monitored 78 bpm bpm Respiratory Rate 21 br/min br/min 06/14/2022 17:28 EDT Systolic Blood Pressure NBP 113 mmHg mmHg Diastolic Blood Pressure NBP 58 mmHg mmHg 06/14/2022 17:25 EDT Temperature (Route Not Specified) 37.51 DegC DegC Heart Rate Monitored 84 bpm bpm Respiratory Rate 28 br/min br/min Systolic Blood Pressure NBP 134 mmHg mmHg Diastolic Blood Pressure NBP 76 mmHg mmHg 06/14/2022 17:22 EDT Systolic Blood Pressure NBP 134 mmHg mmHg Diastolic Blood Pressure NBP 74 mmHg mmHg 06/14/2022 17:20 EDT Temperature (Route Not Specified) 37.47 DegC DegC Heart Rate Monitored 84 bpm bpm Respiratory Rate 26 br/min br/min 06/14/2022 17:19 EDT Systolic Blood Pressure NBP 124 mmHg mmHg Diastolic Blood Pressure NBP 74 mmHg mmHg 06/14/2022 17:16 EDT Systolic Blood Pressure NBP 129 mmHg mmHg Diastolic Blood Pressure NBP 72 mmHg mmHg 06/14/2022 17:15 EDT Temperature (Route Not Specified) 37.43 DegC DegC Heart Rate Monitored 83 bpm bpm Respiratory Rate 25 br/min br/min 06/14/2022 17:13 EDT Systolic Blood Pressure NBP 120 mmHg mmHg Diastolic Blood Pressure NBP 74 mmHg mmHg 06/14/2022 17:10 EDT Temperature (Route Not Specified) 37.39 DegC DegC Heart Rate Monitored 83 bpm bpm Respiratory Rate 23 br/min br/min Systolic Blood Pressure NBP 120 mmHg mmHg Diastolic Blood Pressure NBP 71 mmHg mmHg 06/14/2022 17:07 EDT Systolic Blood Pressure NBP 127 mmHg mmHg Diastolic Blood Pressure NBP 71 mmHg mmHg 06/14/2022 17:05 EDT Temperature (Route Not Specified) 37.34 DegC DegC Heart Rate Monitored 79 bpm bpm Respiratory Rate 22 br/min br/min 06/14/2022 17:04 EDT Systolic Blood Pressure NBP 116 mmHg mmHg Diastolic Blood Pressure NBP 70 mmHg mmHg 06/14/2022 17:01 EDT Systolic Blood Pressure NBP 116 mmHg mmHg Diastolic Blood Pressure NBP 71 mmHg mmHg 06/14/2022 17:00 EDT Temperature (Route Not Specified) 37.28 DegC DegC Heart Rate Monitored 76 bpm bpm Respiratory Rate 21 br/min br/min 06/14/2022 16:58 EDT Systolic Blood Pressure NBP 119 mmHg mmHg Diastolic Blood Pressure NBP 72 mmHg mmHg 06/14/2022 16:55 EDT Temperature (Route Not Specified) 37.21 DegC DegC Heart Rate Monitored 75 bpm bpm Respiratory Rate 19 br/min br/min Systolic Blood Pressure NBP 121 mmHg mmHg Diastolic Blood Pressure NBP 69 mmHg mmHg 06/14/2022 16:52 EDT Systolic Blood Pressure NBP 118 mmHg mmHg Diastolic Blood Pressure NBP 70 mmHg mmHg 06/14/2022 16:50 EDT Temperature (Route Not Specified) 37.13 DegC DegC Heart Rate Monitored 75 bpm bpm Respiratory Rate 18 br/min br/min 06/14/2022 16:49 EDT Systolic Blood Pressure NBP 116 mmHg mmHg Diastolic Blood Pressure NBP 69 mmHg mmHg 06/14/2022 16:46 EDT Systolic Blood Pressure NBP 112 mmHg mmHg Diastolic Blood Pressure NBP 67 mmHg mmHg 06/14/2022 16:45 EDT Temperature (Route Not Specified) 37.06 DegC DegC Heart Rate Monitored 74 bpm bpm Respiratory Rate 17 br/min br/min 06/14/2022 16:43 EDT Systolic Blood Pressure NBP 104 mmHg mmHg Diastolic Blood Pressure NBP 67 mmHg mmHg 06/14/2022 16:40 EDT Temperature (Route Not Specified) 36.98 DegC DegC Heart Rate Monitored 73 bpm bpm Respiratory Rate 17 br/min br/min Systolic Blood Pressure NBP 102 mmHg mmHg Diastolic Blood Pressure NBP 63 mmHg mmHg 06/14/2022 16:37 EDT Systolic Blood Pressure NBP 104 mmHg mmHg Diastolic Blood Pressure NBP 64 mmHg mmHg 06/14/2022 16:35 EDT Temperature (Route Not Specified) 36.92 DegC DegC Heart Rate Monitored 72 bpm bpm Respiratory Rate 17 br/min br/min 06/14/2022 16:34 EDT Systolic Blood Pressure NBP 104 mmHg mmHg Diastolic Blood Pressure NBP 60 mmHg mmHg 06/14/2022 16:31 EDT Systolic Blood Pressure NBP 102 mmHg mmHg Diastolic Blood Pressure NBP 65 mmHg mmHg 06/14/2022 16:30 EDT Temperature (Route Not Specified) 36.86 DegC DegC Heart Rate Monitored 71 bpm bpm Respiratory Rate 17 br/min br/min 06/14/2022 16:28 EDT Systolic Blood Pressure NBP 101 mmHg mmHg Diastolic Blood Pressure NBP 60 mmHg mmHg 06/14/2022 16:25 EDT Temperature (Route Not Specified) 36.78 DegC DegC Heart Rate Monitored 70 bpm bpm Respiratory Rate 17 br/min br/min Systolic Blood Pressure NBP 98 mmHg mmHg Diastolic Blood Pressure NBP 60 mmHg mmHg 06/14/2022 16:22 EDT Systolic Blood Pressure NBP 94 mmHg mmHg Diastolic Blood Pressure NBP 58 mmHg mmHg 06/14/2022 16:20 EDT Temperature (Route Not Specified) 36.69 DegC DegC Heart Rate Monitored 69 bpm bpm Respiratory Rate 16 br/min br/min 06/14/2022 16:19 EDT Systolic Blood Pressure NBP 95 mmHg mmHg Diastolic Blood Pressure NBP 59 mmHg mmHg 06/14/2022 16:16 EDT Systolic Blood Pressure NBP 95 mmHg mmHg Diastolic Blood Pressure NBP 61 mmHg mmHg 06/14/2022 16:15 EDT Temperature (Route Not Specified) 36.69 DegC DegC Heart Rate Monitored 67 bpm bpm Respiratory Rate 17 br/min br/min 06/14/2022 16:13 EDT Systolic Blood Pressure NBP 91 mmHg mmHg Diastolic Blood Pressure NBP 56 mmHg mmHg 06/14/2022 16:10 EDT Temperature (Route Not Specified) 36.7 DegC DegC Heart Rate Monitored 67 bpm bpm Respiratory Rate 16 br/min br/min Systolic Blood Pressure NBP 95 mmHg mmHg Diastolic Blood Pressure NBP 58 mmHg mmHg 06/14/2022 16:07 EDT Systolic Blood Pressure NBP 91 mmHg mmHg Diastolic Blood Pressure NBP 54 mmHg mmHg 06/14/2022 16:05 EDT Temperature (Route Not Specified) 36.68 DegC DegC Heart Rate Monitored 66 bpm bpm Respiratory Rate 16 br/min br/min 06/14/2022 16:04 EDT Systolic Blood Pressure NBP 94 mmHg mmHg Diastolic Blood Pressure NBP 57 mmHg mmHg 06/14/2022 16:01 EDT Systolic Blood Pressure NBP 94 mmHg mmHg Diastolic Blood Pressure NBP 57 mmHg mmHg 06/14/2022 16:00 EDT Temperature (Route Not Specified) 36.65 DegC DegC Heart Rate Monitored 65 bpm bpm Respiratory Rate 16 br/min br/min 06/14/2022 15:58 EDT Systolic Blood Pressure NBP 94 mmHg mmHg Diastolic Blood Pressure NBP 56 mmHg mmHg 06/14/2022 15:55 EDT Temperature (Route Not Specified) 36.61 DegC DegC Heart Rate Monitored 64 bpm bpm Respiratory Rate 15 br/min br/min Systolic Blood Pressure NBP 90 mmHg mmHg Diastolic Blood Pressure NBP 57 mmHg mmHg 06/14/2022 15:52 EDT Systolic Blood Pressure NBP 89 mmHg mmHg Diastolic Blood Pressure NBP 59 mmHg mmHg 06/14/2022 15:50 EDT Temperature (Route Not Specified) 36.56 DegC DegC Heart Rate Monitored 62 bpm bpm Respiratory Rate 16 br/min br/min 06/14/2022 15:49 EDT Systolic Blood Pressure NBP 90 mmHg mmHg Diastolic Blood Pressure NBP 58 mmHg mmHg 06/14/2022 15:46 EDT Systolic Blood Pressure NBP 94 mmHg mmHg Diastolic Blood Pressure NBP 59 mmHg mmHg 06/14/2022 15:45 EDT Temperature (Route Not Specified) 36.52 DegC DegC Heart Rate Monitored 61 bpm bpm Respiratory Rate 16 br/min br/min 06/14/2022 15:43 EDT Systolic Blood Pressure NBP 96 mmHg mmHg Diastolic Blood Pressure NBP 60 mmHg mmHg 06/14/2022 15:40 EDT Temperature (Route Not Specified) 36.45 DegC DegC Heart Rate Monitored 62 bpm bpm Respiratory Rate 15 br/min br/min Systolic Blood Pressure NBP 94 mmHg mmHg Diastolic Blood Pressure NBP 61 mmHg mmHg 06/14/2022 15:37 EDT Systolic Blood Pressure NBP 101 mmHg mmHg Diastolic Blood Pressure NBP 61 mmHg mmHg 06/14/2022 15:35 EDT Temperature (Route Not Specified) 36.36 DegC DegC Heart Rate Monitored 61 bpm bpm Respiratory Rate 15 br/min br/min 06/14/2022 15:34 EDT Systolic Blood Pressure NBP 96 mmHg mmHg Diastolic Blood Pressure NBP 61 mmHg mmHg 06/14/2022 15:31 EDT Systolic Blood Pressure NBP 106 mmHg mmHg Diastolic Blood Pressure NBP 62 mmHg mmHg 06/14/2022 15:30 EDT Temperature (Route Not Specified) 36.46 DegC DegC Heart Rate Monitored 62 bpm bpm Respiratory Rate 15 br/min br/min 06/14/2022 15:27 EDT Systolic Blood Pressure NBP 107 mmHg mmHg Diastolic Blood Pressure NBP 64 mmHg mmHg 06/14/2022 15:25 EDT Temperature (Route Not Specified) 36.58 DegC DegC Heart Rate Monitored 64 bpm bpm Respiratory Rate 15 br/min br/min Systolic Blood Pressure NBP 102 mmHg mmHg Diastolic Blood Pressure NBP 62 mmHg mmHg 06/14/2022 15:22 EDT Systolic Blood Pressure NBP 102 mmHg mmHg Diastolic Blood Pressure NBP 62 mmHg mmHg 06/14/2022 15:20 EDT Temperature (Route Not Specified) 36.65 DegC DegC Heart Rate Monitored 67 bpm bpm Respiratory Rate 13 br/min br/min 06/14/2022 15:19 EDT Systolic Blood Pressure NBP 103 mmHg mmHg Diastolic Blood Pressure NBP 63 mmHg mmHg 06/14/2022 15:16 EDT Systolic Blood Pressure NBP 129 mmHg mmHg Diastolic Blood Pressure NBP 68 mmHg mmHg 06/14/2022 15:15 EDT Heart Rate Monitored 73 bpm bpm Respiratory Rate 36 br/min br/min 06/14/2022 15:13 EDT Systolic Blood Pressure NBP 132 mmHg mmHg Diastolic Blood Pressure NBP 79 mmHg mmHg 06/14/2022 15:10 EDT Respiratory Rate 0 br/min br/min Systolic Blood Pressure NBP 158 mmHg mmHg Diastolic Blood Pressure NBP 99 mmHg mmHg 06/14/2022 11:49 EDT Temperature Temporal Artery 36.0 DegC Peripheral Pulse Rate 75 bpm Respiratory Rate 16 br/min Systolic Blood Pressure NBP 112 mmHg Diastolic Blood Pressure NBP 75 mmHg 06/14/2022 11:24 EDT Respiratory Rate 16 br/min 06/14/2022 10:21 EDT Apical Heart Rate 75 bpm Respiratory Rate 16 br/min Systolic Blood Pressure NBP 116 mmHg Diastolic Blood Pressure NBP 63 mmHg 06/14/2022 9:03 EDT Apical Heart Rate 71 bpm Respiratory Rate 16 br/min 06/14/2022 7:41 EDT Systolic Blood Pressure NBP 123 mmHg mmHg Diastolic Blood Pressure NBP 77 mmHg mmHg 06/14/2022 7:36 EDT Systolic Blood Pressure NBP 130 mmHg mmHg Diastolic Blood Pressure NBP 73 mmHg mmHg 06/14/2022 7:33 EDT Apical Heart Rate 80 bpm Respiratory Rate 16 br/min Systolic Blood Pressure NBP 127 mmHg Diastolic Blood Pressure NBP 72 mmHg 06/14/2022 7:31 EDT Systolic Blood Pressure NBP 127 mmHg mmHg Diastolic Blood Pressure NBP 72 mmHg mmHg 06/14/2022 7:26 EDT Systolic Blood Pressure NBP 136 mmHg mmHg Diastolic Blood Pressure NBP 75 mmHg mmHg 06/14/2022 7:21 EDT Systolic Blood Pressure NBP 125 mmHg mmHg Diastolic Blood Pressure NBP 72 mmHg mmHg 06/14/2022 6:15 EDT Temperature Temporal Artery 36.4 DegC Apical Heart Rate 75 bpm Respiratory Rate 18 br/min Systolic Blood Pressure 106 mmHg Diastolic Blood Pressure 69 mmHg Mean Arterial Pressure 81 mmHg . Mental status: at preoperative baseline. Respiratory function: respirations are non-labored, Stable. Respiratory support: none. CV function: Stable. Cardiovascular support: none. Pain: Satisfactory. Nausea status: Satisfactory. Postoperative hydration status: within normal limits. Notes: Patient is sufficiently recovered from anesthesia to participate in the evaluation. No follow-up care needed. No complications post-anesthesia.. Digitally Signed by BURTON ANTOINE MD on 06/14/2022 08:27 PM [facility] 06-14-2022 Note ORIGINAL EXAMINATION: SPOT FLUOROSCOPIC IMAGES 06/14/2022 5:37 pm TECHNIQUE: Fluoroscopy was provided by the radiology department for procedure. Radiologist was not present during examination. FLUOROSCOPY DOSE AND TYPE OR TIME AND EXPOSURES: Fluoro time: 60.5 seconds Total dose: 3.12 mGy Images: 4 COMPARISON: None HISTORY: ORDERING SYSTEM PROVIDED HISTORY: Reason for Exam: RT ANKLE PAIN Intraprocedural imaging. FINDINGS: 4 spot images of the right ankle were obtained. There is fixation hardware of the distal tibia and talus. IMPRESSION: Intraprocedural fluoroscopic spot images as above. See separate procedure report for more information. I have personally reviewed the images of this examination and agree with the resident's findings and interpretation. Interpreted by: Robbie Martin DO Preliminary Report By: Zhane Barros Electronically signed By Robbie Martin DO Dictated Date: 06/14/2022 7:12:43 PM Prelim Date: 06/14/2022 7:14:32 PM Sign Date: 06/14/2022 7:34:16 PM Ordering Provider: BLADIMIR BEAULIEU [facility] 06-14-2022 Summary of episod e note Discharge Instructions Thank you for allowing [place] to assist you with your healthcare needs. The following is important discharge information regarding your hospital visit. Your Care Team RAUL EVANS APRN-[employer]ER What to do next Follow Up Appointments Follow Up with BLADIMIR BEAULIEU DPM, [facility], Wound Care, Wound Care Service When Why: Follow-up as scheduled Where: [facility] [address] [place] [address] & [place] [address]- [phone] The Following Activity and Diet Have Been Ordered for You Discharge Activity - Ordered -- Follow the post-operative/post-procedure activity instructions provided by your physician's office., 06/14/22 18:34:00 EDT Discharge Diet - Ordered -- Follow the post-operative/post-procedure diet instructions provided by your physician's office., 06/14/22 18:34:00 EDT The Following Equipment Has Been Ordered for You Discharge Home Equipment Discharge Home Equipment - Ordered -- Wheeled walker, 6 month(s), 06/14/22 18:34:00 EDT Discharge Wound Care - Ordered -- Follow the post-operative/post-procedure wound care instructions provided by your physician's office., 06/14/22 18:34:00 EDT The Following Treatments Have Been Ordered for You Discharge Labs No qualifying data available. Discharge Radiology No qualifying data available. Other Therapies No qualifying data available. Post Acute Orders No qualifying data available. Someone Will Contact You Regarding These Home Health Referrals No home referrals have been ordered for you. No one will call you. Allergies Januvia (Tongue swelling) Abilify (Nausea and vomiting, Disoriented) Bactrim (Racing heartbeat, Rash) CeleXA (Nausea and vomiting, Disoriented) Jardiance (Vaginal infection) sulfa drugs (Itching, Rash) trimethoprim (Itching, Rash) Medications Please ask your primary doctor or pharmacist before taking any other medication not listed, including over the counter drugs, herbal medications, vitamins and or supplements as they may interact with your home medications. What How Much When Why Instructions Last Dose Unchanged acetaminophen-oxyCODONE (Percocet 5 mg-325 mg oral tablet) 1 tab(s) by mouth Every 4 hours as needed for for pain Acute post-operative pain Duration: 7 Days Unchanged albuterol (albuterol 2.5 mg/ 3 mL (0.083%) inhalation solution) 3 Milliliter Nebulized inhalation Every 6 hours as needed for as needed for wheezing Unchanged albuterol (Ventolin HFA MDI (90 mcg/ inh) inhalation aerosol) 2 puff(s) by inhalation Every 4 hours inhale 2 puffs by mouth every 4 hours if needed Unchanged ascorbic acid (Vitamin C 500 mg oral tablet) 1 tab(s) by mouth Two (2) times a day Unchanged budesonide-formoterol (Symbicort 160 mcg-4.5 mcg/ inh Inhaler) 2 puff(s) by inhalation Two (2) times a day Unchanged calcium-vitamin D (Oystercal-D 500 mg-3.125 mcg (125 intl units) oral tablet) 1 tab(s) by mouth Two (2) times a day Unchanged cyclobenzaprine (cyclobenzaprine 10 mg oral tablet) 1 tab(s) by mouth Three (3) times a day as needed for for muscle spasm Unchanged DME (Blood Glucose Test Machine) See instructions Use as directed Freestyle Emmanuel sensors ...qs for 1 month Unchanged DME (Blood Glucose Test Strips) See instructions DM type 2 with diabetic peripheral neuropathy Freestyle Precision ...use 1 daily Unchanged DME (Continuous Glucose Monitoring System) See instructions Diabetes mellitus type 2 in obese Freestyle Emmanuel CGM Sensors Pt to change sensor every 2 weeks Unchanged DME (DME MISCellaneous) See instructions Lower leg edema compression hose 18 to 20 mm Hg Unchanged DME (DME MISCellaneous) See instructions Asthma Tubing for nebulizer Unchanged DME (Pen needles) See instructions 4x daily Unchanged dulaglutide (Trulicity Pen 3 mg/ 0.5 mL subcutaneous solution) 0.5 Milliliter Subcutaneous Every Friday rotate injection sites Unchanged famotidine (famotidine 20 mg oral tablet) 1 tab(s) by mouth Two (2) times a day as needed for Reflux Duration: 90 Days Unchanged folic acid (folic acid 1 mg oral tablet) 1 tab(s) by mouth Once a day Unchanged insulin glargine (Lantus Solostar Pen 100 units/ mL 3 mL Pen) 70 unit(s) Subcutaneous Daily at bedtime Unchanged insulin lispro (HumaLOG) (HumaLOG KwikPen (CONCENTRATED) 200 units/ mL PEN) Subcutaneous Three (3) times a day Unchanged levothyroxine (levothyroxine 175 mcg (0.175 mg) oral tablet) 1 tab(s) by mouth Every Fri/Fri///Fri/Sat take 1 daily, 2 on sundays Unchanged LORazepam (Ativan 0.5 mg oral tablet) 1 tab(s) by mouth Two (2) times a day as needed for as needed for anxiety Unchanged losartan (losartan 25 mg oral tablet) 1 tab(s) by mouth Every day Unchanged meloxicam (meloxicam 15 mg oral tablet) 1 tab(s) by mouth Once a day Unchanged Misc Medication (FREESTYLE KIT SENSOR) Unchanged montelukast (montelukast 10 mg oral tablet) 1 tab(s) by mouth Once a day Unchanged omeprazole (omeprazole 40 mg oral delayed release capsule) 1 cap by mouth Once a day (in the morning) Unchanged OXcarbazepine (OXcarbazepine 150 mg oral tablet, extended release) 1 tab(s) by mouth Daily at bedtime Unchanged pregabalin (Lyrica 75 mg oral capsule) 1 cap by mouth Two (2) times a day Unchanged simvastatin (simvastatin 20 mg oral tablet) 1 tab(s) by mouth Daily at bedtime take 1 tablet by mouth at bedtime Unchanged traMADol (traMADol 50 mg oral tablet) 1 tab(s) by mouth Three (3) times a day as needed for for pain Unchanged vortioxetine (Trintellix 20 mg oral tablet) 1 tab(s) by mouth Daily at bedtime Please take this list to your next doctor s visit. Bring all medications you take, including over the counter medications, herbals and other supplements with you to your doctor s visit. Patients and families are reminded to discard old lists and to update any records with all medication providers or retail pharmacies. Education Materials TG SAME DAY SURGERY DISCHARGE INSTRUCTIONS PLEASE FOLLOW THE INSTRUCTIONS BELOW MARKED WITH AN X: _x__ Regular Diet: Start with clear liquids, then soup and crackers and gradually add other foods. _x__ Drink extra fluids. ___ Special Diet Instructions: ___ ACTIVITY: _x__ Avoid stress to suture line. Since you have had an anesthetic, it would be advisable not to drive, drink alcohol, or make major decisions over the next 24 hours. You may require more rest tonight and tomorrow. ___ May resume regular activity as tolerated. ___ Restrict activity as follows: ___ ___ Walk Only ___ ___ Do not go up and down stairs. ___ Do not ride in car until ___ ___ Do not drive car. ___ Do not have sexual intercourse. ___ No heavy lifting, pushing or straining. _x__ Other: _Follow all instructions provided to you by Dr. Beaulieu. Call office with any questions or concerns. __ BATHING/SHOWERING: _x__ Sponge bathe until office visit. ___ Sitting in tub of warm water may relieve discomfort. ___ May tub bathe ___ May shower ___ On day after surgery sit in tub of warm water to soak off dressing. DRESSING: ___ Keep operative area dry and clean for ___ _x__ Check the operative area for signs of bleeding. Apply pressure to the bleeding site if necessary and call your physician. ___ Change dressing as necessary using sterile dressing material or bandaid. ___ Reinforce dressing as necessary. ___ Change and care for wound as follows: ___ ___ Wear bra for ___ days following breast surgery for comfort. ___ Change drip pad as needed. ___ Wear scrotal support for comfort. WATCH FOR SIGNS OF INFECTION: (Usually appears 36-48 hours after surgery) Increased temperature (101 degrees Fahrenheit or higher) Redness or swelling Increased pain Foul odor or drainage. If you have any questions, please call your doctor at the number listed on your follow up instructions. Follow all instructions given to you by your physician. Please complete and return the survey you will be receiving in the mail to help us better serve our patients. Form: 1522 ([id number]) R: 12/01 Additional Information VACCINATE! IT SAVES LIVES! Members of the community who have not yet received the COVID-19 vaccine and would like to receive it can visit one of [facility] vaccine clinics. There are many vaccine clinic locations within the [facility]. For locations and available times, please visit [email or web address] It is important to note that some COVID mobile vaccine clinics are held outdoors and may be canceled in rainy or stormy conditions. To learn more about pediatric vaccinations (ages 5-11), we invite you to visit the [facility] webpage. [email or web address] To learn more about the COVID-19 vaccine, we invite you to visit the [place] website for a list of frequently asked questions. [email or web address] [facility] Patient Portal Access Instructions: Stay connected with your healthcare team and access your personal medical information anytime with the [facility] Patient Portal.If you would like a full copy of your medical records, please contact the [facility] Medical Records Department, Friday through Friday between 8a.m. and 4:30p.m. Please follow the directions below to access the portal: 1.Access the email account you provided upon registration to the [facility].2.Look for an invitation email from [facility].3.Open the email and access the invitation link: Accept Invitation to [facility]4.Fill in the required donaldson to create your account. Sign into [email or web address] with your username and password that you created in the above steps to stay up to date. You can then view a summary of results, a summary of your visits, and the ability to download your summaries to your computer or send the information securely to a physician. Remember that your healthcare information is confidential, so carefully consider who you will allow to register on the [facility] Patient Portal for access to your information. You can also access the [facility] [employer] Patient Portal on the [employer]. Simply click on Health Records under Health Data and then click on the Tg logo. HOW TO SAFELY DISPOSE OF PRESCRIPTION MEDICATIONS Please use one of the following methods to safely dispose of your unused medications. 1.Use a drug disposal kit: the drug disposal pouch allows you to safely discard your old and unused drugs. Ask your nurse to give you one when you are discharged.2.Visit a local take-back location: Many local pharmacies and police departments have programs that collect old and unwanted prescription drugs. Call your local pharmacy or go to http://appMobi.Podaddies/0V7Tu9a to find one close to you.3.Make use of household items: Use cat litter or old coffee grounds to dispose medications if other options are not available. Mix your drugs with these household products, seal them in an airtight container and throw it into the garbage. Call [facility]: [phone] to be sure your drugs can be disposed of in this way. Some medicines may require a different approach.4.Never flush your medications down the toilet. IF YOU HAVE BEEN PRESCRIBED AN OPIOID FOR PAIN If you have been prescribed an opioid (such as hydrocodone, oxycodone or morphine), it is critical to understand the possible side effects and risks of opioid pain medications. Even when taken as directed, opioids can have several side effects including: Tolerance, meaning you might need to take more of a medication for the same pain relief. Nausea, vomiting and/or constipation. Sleepiness, dizziness, dry mouth, confusion, depression or itching. Physical dependence, meaning you have withdrawal symptoms when a medication is stopped, can develop within a few days. KNOW YOUR RESPONSIBILITIES It is important to know exactly how much and how often to take the opioid pain medications you are prescribed. Never take opioids in higher amounts or more often than prescribed. Do not combine opioids with alcohol or other drugs that cause drowsiness, such as benzodiazepines, also known as benzos, including diazepam and alprazolam, muscle relaxants or sleep aids. Never sell or share prescription opioids. This is illegal. Store opioids in a secure place and out of reach of others (including children, family, friends and visitors). The last page of this document has been signed and retained as a CHART COPY. Signatures Patient Education Materials 1-SDS Discharge Instructions Template (05/2018)(CUSTOM) Medication Leaflets My discharge plan and instructions have been reviewed and explained to me and I,MACHELLE FRIEDMAN understand my current condition and have read and understand these discharge instructions. I have received a written copy of the plan/instructions. If I have questions, I am aware that I should contact my doctor. Patient/Immigration Paralegal Signature: Date/Time: Relationship to Patient: Witness Name/Signature: Date/Time: [facility] 06-14-2022 Note ORIGINAL EXAMINATION: SPOT FLUOROSCOPIC IMAGES 06/14/2022 5:37 pm TECHNIQUE: Fluoroscopy was provided by the radiology department for procedure. Radiologist was not present during examination. FLUOROSCOPY DOSE AND TYPE OR TIME AND EXPOSURES: Fluoro time: 60.5 seconds Total dose: 3.12 mGy Images: 4 COMPARISON: None HISTORY: ORDERING SYSTEM PROVIDED HISTORY: Reason for Exam: RT ANKLE PAIN Intraprocedural imaging. FINDINGS: 4 spot images of the right ankle were obtained. There is fixation hardware of the distal tibia and talus. IMPRESSION: Intraprocedural fluoroscopic spot images as above. See separate procedure report for more information. I have personally reviewed the images of this examination and agree with the resident's findings and interpretation. Interpreted by: Robbie Martin DO Preliminary Report By: Zhane Barros Electronically signed By Robbie Martin DO Dictated Date: 06/14/2022 7:12:43 PM Prelim Date: 06/14/2022 7:14:32 PM Sign Date: 06/14/2022 7:34:16 PM Ordering Provider: [facility] 06-14-2022 Anesthesiology Consult note Patient: MACHELLE FRIEDMAN Age: 51 years Sex: Female : 1970 Associated Diagnoses: None Author: TONY DAY MD Preoperative Information NPO >8 hours Anesthesia history Patient's history: negative. History of Present Illness 51yoF with PMH hypertension, hyperlipidemia, diabetes mellitus type 2, hypothyroidism, sepsis sleep apnea with compliant BiPAP use, diabetic neuropathy,, GERD controlled medication, asthma without recent exacerbation (well controlled), anemia, thyroid CA status post thyroidectomy 12/26/2017, osteoarthritis status post right knee surgery, obesity, anxiety/depression/bipolar, and fibromyalgia presenting for R ankle fusion. Denies CP, SOB, fever, recent cough, cold or congestion METS limited due to pain, no GERD sx. Health Status Allergies: Allergic Reactions (Selected) Severe Januvia- Tongue swelling. Severity Not Documented Abilify- Nausea and vomiting and disoriented. Bactrim- Racing heartbeat and rash. CeleXA- Nausea and vomiting and disoriented. Sulfa drugs- Rash and itching. Trimethoprim- Itching and rash. Nonallergic Reactions (Selected) Severity Not Documented Jardiance- Vaginal infection., Allergies (7) ActiveReaction JanuviaTongue swelling AbilifyNausea and vomiting BactrimRacing heartbeat CeleXADisoriented JardianceVaginal infection sulfa drugsItching trimethoprimRash Current medications: (Selected) Inpatient Medications Ordered Kefzol: 2 gram(s), 20 mL, 240 mL/hr, IV Push (INT), PREOP pharm LR 1,000 mL: 20 mL/hr, Intravenous LR 1,000 mL: 20 mL/hr, Intravenous, Stop: 06/14/22 23:59:00 EDT Xylocaine HCl 1% injectable solution: 2.5 mg, 0.25 mL, Intradermal, PREOP pharm lidocaine 1% preservative-free injectable solution: 2.5 mg, 0.25 mL, Intradermal, PREOP pharm Prescriptions Prescribed Blood Glucose Test Machine: See Instructions, Use as directed Freestyle Emmanuel sensors ...qs for 1 month, 2 kit(s), 2 Refill(s) Blood Glucose Test Strips: See Instructions, Letsmakestyle Precision ...use 1 daily, 100 EA, 0 Refill(s) Continuous Glucose Monitoring System: See Instructions, Letsmakestyle Emmanuel CGM Sensors Pt to change sensor every 2 weeks, 2 EA, 11 Refill(s) DME MISCellaneous: See Instructions, Tubing for nebulizer, 1 EA, 0 Refill(s) DME MISCellaneous: See Instructions, compression hose 18 to 20 mm Hg, 1 EA, 0 Refill(s) Pen needles: See Instructions, 4x daily, 1 EA, 11 Refill(s) Symbicort 160 mcg-4.5 mcg/inh Inhaler: 2 puff(s), Inhalation, BID, 3 EA, 3 Refill(s) Ventolin HFA MDI (90 mcg/inh) inhalation aerosol: 2 puff(s), Inhalation, q4h, inhale 2 puffs by mouth every 4 hours if needed, 3 EA, 3 Refill(s) albuterol 2.5 mg/3 mL (0.083%) inhalation solution: 2.5 mg, 3 mL, Nebulized, q6hr, PRN: as needed for wheezing, 360 mL, 2 Refill(s) famotidine 20 mg oral tablet: 20 mg, 1 tab(s), Oral, BID, for 90 day(s), PRN: Reflux, 180 tab(s), 0 Refill(s) folic acid 1 mg oral tablet: 1 mg, 1 tab(s), Oral, qDay, 90 tab(s), 3 Refill(s) losartan 25 mg oral tablet: 25 mg, 1 tab(s), Oral, Daily, 90 tab(s), 3 Refill(s) montelukast 10 mg oral tablet: 10 mg, 1 tab(s), Oral, qDay, 90 tab(s), 3 Refill(s) simvastatin 20 mg oral tablet: 20 mg, 1 tab(s), Oral, qHS, take 1 tablet by mouth at bedtime, 90 tab(s), 3 Refill(s) Documented Medications Documented Ativan 0.5 mg oral tablet: 0.5 mg, 1 tab(s), Oral, BID, PRN: as needed for anxiety, 0 Refill(s) FREESTYLE KIT SENSOR: 0 Refill(s) HumaLOG KwikPen (CONCENTRATED) 200 units/mL PEN: unit(s), Subcutaneous, TID, 5 EA, 0 Refill(s) Lantus Solostar Pen 100 units/mL 3 mL Pen: 70 unit(s), Subcutaneous, qHS, 3 mL, 0 Refill(s) Lyrica 75 mg oral capsule: 75 mg, 1 cap(s), Oral, BID, 60 cap(s), 0 Refill(s) OXcarbazepine 150 mg oral tablet, extended release: 150 mg, 1 tab(s), Oral, qHS, 30 tab(s), 0 Refill(s) Trintellix 20 mg oral tablet: 20 mg, 1 tab(s), Oral, qHS, 30 tab(s), 0 Refill(s) Trulicity Pen 3 mg/0.5 mL subcutaneous solution: 3 mg, 0.5 mL, Subcutaneous, Friday, rotate injection sites, 2 mL, 0 Refill(s) levothyroxine 175 mcg (0.175 mg) oral tablet: 175 mcg, 1 tab(s), Oral, Fri/Fri///Fri/Sat, take 1 daily, 2 on sundays, 90 tab(s), 0 Refill(s) meloxicam 15 mg oral tablet: 15 mg, 1 tab(s), Oral, qDay, 30 tab(s), 0 Refill(s) omeprazole 40 mg oral delayed release capsule: 40 mg, 1 cap(s), Oral, qAM, 30 cap(s), 0 Refill(s) traMADol 50 mg oral tablet: 50 mg, 1 tab(s), Oral, TID, PRN: for pain, 12 tab(s), 0 Refill(s), Medications (5) Active Scheduled: (3) ceFAZolin syringe 2 gram(s) 20 mL, IV Push (INT), PREOP pharm lidocaine 1% (MPF) 2 mL vial pf 2.5 mg 0.25 mL, Intradermal, PREOP pharm lidocaine 1% (MPF) 2 mL vial pf 2.5 mg 0.25 mL, Intradermal, PREOP pharm Continuous: (2) Lactated Ringers 1,000 mL 1,000 mL, Intravenous, 20 mL/hr Lactated Ringers 1,000 mL 1,000 mL, Intravenous, 20 mL/hr PRN: (0) Problem list: Medical Abdominal pain / SNOMED CT 17042624 / Confirmed Anxiety / SNOMED CT 72308898 / Confirmed Asthma / SNOMED CT 532140926 / Confirmed Bereavement / SNOMED CT 376145868 / Confirmed BIPAP - Biphasic pressure airway support / SNOMED CT 298029047 / Confirmed Bipolar disorder / SNOMED CT 33116100 / Confirmed Depression / SNOMED CT 25262988 / Confirmed Diabetes mellitus type 2 / SNOMED CT 895058283 / Confirmed Lower leg edema / SNOMED CT 857730127 / Confirmed Fibromyalgia / SNOMED CT 147961704 / Confirmed Acid reflux / SNOMED CT 401072552 / Confirmed Hyperlipidemia / SNOMED CT 43163007 / Confirmed Hypothyroidism / SNOMED CT 03501158 / Confirmed Elevated hemoglobin / SNOMED CT 640624094 / Confirmed Indigestion / SNOMED CT 371827280 / Confirmed Knee pain / SNOMED CT 37216501 / Confirmed Cancer of thyroid / SNOMED CT 429970172 / Confirmed Need for influenza vaccination / SNOMED CT 617830001 / Confirmed Class 2 obesity / SNOMED CT 325913728703346 / Confirmed MAGALY (obstructive sleep apnea) / SNOMED CT 646980296 / Confirmed Medicare annual wellness visit, subsequent / SNOMED CT 785775954 / Confirmed Screening for breast cancer / SNOMED CT 546981137 / Confirmed DM type 2 with diabetic peripheral neuropathy / SNOMED CT 9094762457 / Confirmed Sleep apnea / SNOMED CT 749732823 / Confirmed, Active Problems (26) Abdominal pain Acid reflux Anxiety Asthma Bereavement BIPAP - Biphasic pressure airway support Bipolar disorder Cancer of thyroid Class 2 obesity Depression Diabetes mellitus type 2 DM type 2 with diabetic peripheral neuropathy Elevated hemoglobin Fibromyalgia Glasses Hyperlipidemia Hypothyroidism Indigestion Knee pain Lower leg edema Medicare annual wellness visit, subsequent Need for influenza vaccination MAGALY (obstructive sleep apnea) Panic attack Screening for breast cancer Sleep apnea Histories Past Medical History: Resolved Thyroid nodule (263754558): Resolved. LAD (lymphadenopathy), axillary (393687): Resolved. Pain in right arm (205594454): Resolved. Procedure history: Other ([id number]) in 2019 at 49 Years. Comments: 07/30/2019 8:35 ANGIE - MARIA LUISA Hubbard. iodine radiation - thyroid section (88932067). section (90452651). Cholecystectomy (40411146). Other (493871726). Comments: 11/03/2018 12:51 Shannan Rizo MA ENT Surgery: nasal D&C - Dilatation and curettage (5958363192). Comments: 11/03/2018 12:51 Shannan Rizo MA [employer]IC [employer]ATER Surgery and cryo Tubal ligation (582200893). Other (998101111). Comments: 11/03/2018 12:52 Shannan Rizo MA Orthopedic Surgery: right ankle Other (219598789). Comments: 06/14/2022 6:28 Arianna Rizo RN pt states rt ankle only 11/03/2018 12:52 Shannan Rizo MA Orthopedic Surgery: both ankles Osteotomy (002340633). Comments: 05/31/2022 10:58 TIERRA Murillo has had surgery x3 11/03/2018 12:53 Shannan Rizo MA calcaneal osteomy right heel Arthroscopic knee operation (0970866617). Comments: 05/31/2022 10:59 TIERRA Murillo right and left Colonoscopy (304663704). Endometrial laser ablation (891983654). Deviated nasal septum (871272269). Social History Social & Psychosocial Habits Alcohol 05/26/2019Risk Assessment: Denies Alcohol Use 10/27/2019 Use: Never Substance Abuse 05/26/2019Risk Assessment: Denies Substance Abuse 05/31/2022 Use: Never Tobacco 11/03/2018 Tobacco Use: Never (less than 100 in l 05/26/2019Risk Assessment: Denies Tobacco Use Home/Environment 05/31/2022 Domestic Concerns None Living situation: Home/Independent Safe place to go: Yes Lives In 1st floor bathroom, 1st floor bedroom, Multilevel home Current Home Treatments Blood Glucose monitoring, Nebulizer treatments, bipap, rolator, Special Services and Community Resources None Spouse Name yokasta Marital Status of Patient if Patient Independent Adult: Nutrition/Health 05/31/2022 Type of diet: Diabetic Appetite Good Eating Difficulties None . Physical Examination Vital Signs(last 24 hrs) Last Charted Resp Rate 18 br/min (JUN 14 06:15) Measurements from flowsheet : Measurements 06/14/2022 6:25 EDT Body Mass Index 43.55 kg/m2 Body Mass Index 43.55 kg/m2 06/14/2022 6:15 EDT Height 165.1 cm Height in inches 65 inch(es) Admission Weight 118.7 kg Weight Lbs 261.1 lb Weight Method Actual [place] Body Weight 57.00 kg Type of Scale Used Bed scale Admission Body Mass Index 43.55 m2 General: Alert and oriented, No acute distress. Airway: Normal mouth, Normal neck range of motion. Mallampati classification: III (soft palate, base of uvula visible). Dentition Evaluation: chipped upper R tooth. Neck: Supple. Respiratory: Lungs are clear to auscultation, Respirations are non-labored. Cardiovascular: Normal rate, Regular rhythm. Heart Sounds: Normal. Neurologic: Alert, Oriented. Review / Management Results review: No qualifying data available . Documentation reviewed: Current records. Assessment and Plan [place] [employer] Anesthesiologists (ASA) physical status classification: Class III. Anesthetic Preoperative Plan Premedication: intravenous. Anesthetic technique: General. Induction: intravenously. Maintenance airway: Oral endotracheal tube. Regional: preop pop/saph blocks performed for post op pain control per surgeon request. Postoperative pain management: Per surgeon. Risks discussed: nausea, vomiting, headache, sore throat, dental injury, hypotension, allergic reaction, serious complications. Informed consent: signed by patient. Notes: Late entry due to participation in pt care. Pt seen and evaluated prior to performing anesthetic. Discussed and agree upon plan. . Digitally Signed by TONY DAY MD on 06/14/2022 07:55 AM Digitally Signed by TONY DAY MD on 06/14/2022 12:52 PM [facility] 05-06-2022 Instructions Shanika Araujo, OD - 05/06/2022 10:55 AM EDT For dryness/burning/watering: Recommend artificial tears (Refresh, Systane, Blink, TheraTears or equivalent) in both eyes four times a day. If needed more frequently, should use non-preserved artifical tears. If symptoms are severe, use artificial tear gel or ointment (Refresh PM, Genteal Gel or equivalent ) at bedtime. If symptoms are still bothersome, pt should return for evaluation for punctal plugs or prescription eye drops. For redness relief: Patient should not use Visine or other gets the red out drops. Instead recommend trying over the counter Lumify eye drops for redness reduction as needed in both eyes. documented in this encounter [facility] 05-06-2022 History of Presen t illness Narrative Screening for diabetic retinopathy Diabetes mellitus type 2 without retinopathy (hcc) (primary encounter diagnosis) Age-related nuclear cataract of both eyes Myopia of both eyes Regular astigmatism of both eyes Presbyopia Eye redness Ocular migraine No sign of diabetic retinopathy or macular edema in either eye. Some vessel changes noted. The patient was educated about the importance of an annual dilated eye exam and that good control of blood sugar can decrease the risk of permanent vision loss from diabetic retinopathy and macular edema. The signs and symptoms of worsening cataracts, such as glare, halos, shifts in prescription, and needing more light to see, were reviewed. Glasses Rx given. Patient reports periods of ocular redness. There are no signs of a current problem. Some of these seem like subconjunctival hemes, which are reported as frequent. Patient is taking a low dose aspirin. Recommend consulting with primary care physician to see if this is necessary still. Recommend artificial tears as needed or lumify for mild redness or should return COMPA if symptoms recur. The patient has experienced an ocular, or acephalic, migraine. This disturbing (but harmless) visual disturbance typically last 15-30 minutes and may expand and then contract as it resolves. It may or may not be followed by a migraine headache. If this is a recurrent problem, the patient should keep track of what triggered the event. Some typical causes may be lack of sleep, dehydration, wine, and cheese. A neurologist should be consulted for recurrent migraine headaches, but there is currently no treatment for an ocular migraine. Return 1 year complete (diabetes) documented in this encounter [facility] 03-28-2022 Miscellaneous Notes Your form has been successfully submitted and your request is being processed. Confirmation number: [id number] Referral from Ophthalmology [facility] [place] March 28, 2022 11:07 AM documented in this encounter [facility] 03-28-2022 Instructions Francie Britt APRN.RAZA - 03/28/2022 10:52 AM EDT 1. Follow up with ophthalmology, you will be called to schedule 2. Start jardiance 10mg once daily in the morning 3. Continue lantus and humalog. If you start to have frequent lows below 70, call me 4. Work on walking more, try and do 20-30 minutes daily 5. Follow up in 3 months documented in this encounter [facility] 03-28-2022 History of Presen t illness Narrative Rebecca Carty is a 51 year old female who presents for diabetes management. Timeline: Timeline: dx type 2 diabetes ~1999 Complications: (+) retinopathy, (+) neuropathy, (-) nephropathy Course: has been on insulin for several years. Has followed with Dr Irwin and Dr Cunningham. She continues to follow with Dr Cunningham for thyroid. First visit with me today Current medications for diabetes: Trulicity 3 mg weekly Long acting insulin: Insulin used for this is called: lantus Bedtime dose 70 units Rapid acting /mealtime insulin: Insulin used for this is called: humalog Breakfast dose: SS only Lunchtime dose SS only Supper dose SS only Your sliding scale, for additional units of the rapid acting insulin: Insulin used for this is called: humalog Take this at meals, in addition to the above doses. If glucose reading is: 150-175 Take an additional 3 Units. 176-200 Take an additional 3 Units. 201-225 Take an additional 6 Units. 226-250 Take an additional 6 Units. 251-275 Take an additional 9 Units. 276-300 Take an additional 9 Units. 301-325 Take an additional 12 Units. 326-350 Take an additional 12 Units. 351-375 Take an additional 15 Units. 376-400 Take an additional 15 Units. Over 400 Take an additional 18 Units. Previous medications for diabetes: Intolerant to metformin and glipizide stopped when she started insulin Today's visit: Patient presents today for routine diabetes followup. She is wearing a emmanuel sensor, but she just put it on yesterday. Has not worn one for several weeks and did not have a replacement. Reports no recent hypoglyemia. A1c has increased slightly since last checked. This patient does follow with Dr Cunningham for thyroid. ___ Typical day/occupation: On disability Diet: Typically eats 3 meals daily. Breakfast: toast and diet coke zero. Lunch: 1/2 sandwich with turkey and yogurt. Supper: varies, cooks for children sometimes lots of noodles Exercise/activity: No regular exercise Hypertension and lipids managed by PCP Denies frequent periods of hypoglycemia. Patient verbalized understanding of the signs and symptoms of hypoglycemia and its treatment options. Important Diabetes Lab History: HBA1C: 01/2020 6.8%. 07/2020 6.5%. 01/2021 6.9%. 10/2021 6.6%. 12/2021 7.1%. 03/2022 7.3% Thyroid Function Testing: managed by Dr Cunningham TSH 12/2021 0.205 (currently taking synthroid 175mcg daily, holding once weekly) Renal Function Testin12/2021 creatinine 0.69 GFR >60 Urine for Microalbumin: 12/2018 Not detected Lipid Profile: 12/2021 TC 117 HDL 41 LDL 60 TG 82 Liver Profile: 12/2021 Alk Phos 82 AST 19 ALT 23 Important Diabetes Maintenance: Eye Exam: Patient educated to have ophthalmology visits at least once a year. Foot Exam: 03/2022 Review of Systems Constitutional: Negative for chills, diaphoresis, fever, malaise/fatigue and weight loss. HENT: Negative for congestion, nosebleeds and sore throat. Eyes: Negative for blurred vision, pain and discharge. Respiratory: Negative for cough, hemoptysis, sputum production, shortness of breath and wheezing. Cardiovascular: Negative for chest pain, palpitations, orthopnea and leg swelling. Gastrointestinal: Negative for abdominal pain, blood in stool, constipation, diarrhea, heartburn, nausea and vomiting. Genitourinary: Negative for dysuria, frequency, hematuria and urgency. Musculoskeletal: Negative for back pain, joint pain and myalgias. Skin: Negative for itching and rash. Neurological: Positive for headaches. Negative for dizziness, tingling and loss of consciousness. Endo/Heme/Allergies: Negative for polydipsia. Psychiatric/Behavioral: Positive for depression. Negative for suicidal ideas. The patient is nervous/anxious. The patient does not have insomnia. PAST MEDICAL HISTORY Diagnosis Date Asthma Depression Hyperlipidemia Hypothyroidism MAGALY (obstructive sleep apnea) Thyroid cancer (HCC) 12/26/2017 Type 2 diabetes mellitus (HCC) PAST SURGICAL HISTORY Procedure Laterality Date SECTION MULTI>2 CHOLECYSTECTOMY D AND C Diagnostic LAD INITIAL LAPAROSCOPIC FIBROID ABLATION PAST SURGICAL HISTORY OF x3 Bilateral PAST SURGICAL HISTORY OF Tendon repair and alignment PAST SURGICAL HISTORY OF Uterine surgery REMOVAL OF THYROID RHINOPLASTY TUBAL LIGATION HX FAMILY HISTORY Problem Relation Age of Onset Diabetes Mother other (Other) Mother Abnormal Heart Baet Diabetes Father Cancer Father Prostate Leukemia Father Heart Attack Father other (Other) Father Abnormal Heart Beat Multiple Sclerosis Sister Diabetes Brother Diabetes Maternal Grandmother Diabetes Paternal Grandmother Cancer Sister Lung Social History Tobacco Use Smoking status: Never Smoker Smokeless tobacco: Never Used Vaping Use Vaping Use: Never used Substance Use Topics Alcohol use: Never Drug use: Never Current Meds pregabalin (LYRICA) 75 mg capsule Take 75 mg by mouth twice daily. traMADol (ULTRAM) 50 mg tablet Take 50 mg by mouth three times daily as needed for pain. TRULICITY 3 mg/0.5 mL pen injector Inject 3 mg subcutaneously one time a week. insulin lispro (HUMALOG KWIKPEN INSULIN) 200 unit/mL (3 mL) injection Inject on sliding scale three times daily with meals, max daily dose of 100u insulin glargine (LANTUS SOLOSTAR U-100 INSULIN) 100 unit/mL (3 mL) Inject 70 Units subcutaneously daily at bedtime. LANTUS NAME BRAND NOT GENERIC FREESTYLE EMMANUEL 14 DAY SENSOR kit Inject 1 Each subcutaneously every 2 weeks. aspirin 81 mg cap Take 1 capsule by mouth once daily. famotidine (PEPCID) 20 mg tablet DULoxetine (CYMBALTA) 20 mg capsule Take 1 capsule by mouth twice daily. TRINTELLIX 10 mg tablet take 1 AND 1/2 tablets by mouth once daily AT SAME TIME EACH DAY levothyroxine (SYNTHROID) 175 mcg tablet Take one tablet daily vortioxetine (TRINTELLIX) 5 mg tablet Take 5 mg by mouth once daily. LORazepam (ATIVAN) 0.5 mg Take by mouth. losartan (COZAAR) 25 mg tablet Take 25 mg by mouth once daily. albuterol (PROVENTIL) 2.5 mg/3 mL nebulizer solution Inhale 2.5 mg as instructed as directed. folic acid 1 mg tablet Take 1 mg by mouth once daily. meloxicam (MOBIC) 15 mg tablet Take 15 mg by mouth once daily. montelukast (SINGULAIR) 10 mg tablet Take 10 mg by mouth daily at bedtime. Omeprazole 40 mg capsule Take 40 mg by mouth once daily. simvastatin (ZOCOR) 20 mg tablet Take 20 mg by mouth daily at bedtime. budesonide-formoterol (SYMBICORT) 160-4.5 mcg/actuation inhaler Inhale 2 Puffs as instructed twice daily. albuterol HFA (VENTOLIN HFA) 90 mcg/actuation inhaler Inhale 2 Puffs as instructed every 6 hours as needed. empagliflozin (JARDIANCE) 10 mg tablet Take 1 tablet by mouth daily with breakfast. Objective BP 120/80 Pulse 83 Ht 165.1 cm (5' 5 ) Wt 120.8 kg (266 lb 6.4 oz) SpO2 96% BMI 44.33 kg/m Physical Exam Constitutional: General: She is not in acute distress. HENT: Head: Normocephalic and atraumatic. Eyes: General: No scleral icterus. Conjunctiva/sclera: Conjunctivae normal. Pupils: Pupils are equal, round, and reactive to light. Cardiovascular: Rate and Rhythm: Normal rate and regular rhythm. Heart sounds: Normal heart sounds. No murmur heard. Pulmonary: Effort: Pulmonary effort is normal. No respiratory distress. Breath sounds: Normal breath sounds. No wheezing or rales. Chest: Chest wall: No tenderness. Abdominal: General: There is no distension. Palpations: Abdomen is soft. Tenderness: There is no abdominal tenderness. There is no rebound. Musculoskeletal: General: No tenderness. Cervical back: Neck supple. Lymphadenopathy: Cervical: No cervical adenopathy. Skin: General: Skin is warm and dry. Findings: No rash. Neurological: Mental Status: She is alert and oriented to person, place, and time. Cranial Nerves: No cranial nerve deficit. Gait: Gait is intact. Psychiatric: Mood and Affect: Mood and affect normal. Cognition and Memory: Memory normal. Judgment: Judgment normal. Plan ASSESSMENT/PLAN: 1. Type 2 diabetes mellitus with hyperglycemia, with long-term current use of insulin ([facility]) - ICD9: 250.00, 790.29, V58.67, ICD10: E11.65, Z79.4 (primary diagnosis) A1c 7.3%. Slightly worse control. Encouraged diet and lifestyle changes. Will add SGLT2. Ewpboo-fpqljrb-aj-transporter- 2 (SGLT2) inhibitors: I Discussed potential side effects of SGLT2 inhibitors, including, but not limited to, genital yeast infections, urinary tract infections, changes in urination, DKA. Notably, there are reports that this drug class can also increase risk of amputation and Guanaco's gangrene. Pt verbalized understanding and agreed to take this medication and will notify me if concerns. Pt also advised to stay hydrated at all times with this medication. - HEMOGLOBIN A1C (POC) - TRULICITY 3 MG/0.5 ML SUBCUTANEOUS PEN INJECTOR - HUMALOG KWIKPEN U-200 INSULIN 200 UNIT/ML (3 ML) SUBCUTANEOUS - INSULIN GLARGINE (U-100) 100 UNIT/ML (3 ML) SUBCUTANEOUS PEN - FREESTYLE EMMANUEL 14 DAY SENSOR KIT - EMPAGLIFLOZIN 10 MG TABLET 2. Screening for diabetic retinopathy - ICD9: V80.2, ICD10: Z13.5 Follow up for eye exam - CONSULT TO OPHTHALMOLOGY 3. Acquired hypothyroidism - ICD9: 244.9, ICD10: E03.[address] Cunningham. Slightly over-replaced at last check. Advised to hold another dose weekly and will recheck her TSH at next visit. Plan of care: 1. HbA1C 7.3%, . 2. Medication changes: See below. Oral medications: Start jardiance 10mg daily Continue trulicity 3mg once weekly Your insulin regimen: Long acting insulin: Insulin used for this is called: lantus Bedtime dose 70 units Rapid acting /mealtime insulin: Insulin used for this is called: humalog Breakfast dose: SS only Lunchtime dose SS only Supper dose SS only Your sliding scale, for additional units of the rapid acting insulin: Insulin used for this is called: humalog Take this at meals, in addition to the above doses. If glucose reading is: 150-175 Take an additional 3 Units. 176-200 Take an additional 3 Units. 201-225 Take an additional 6 Units. 226-250 Take an additional 6 Units. 251-275 Take an additional 9 Units. 276-300 Take an additional 9 Units. 301-325 Take an additional 12 Units. 326-350 Take an additional 12 Units. 351-375 Take an additional 15 Units. 376-400 Take an additional 15 Units. Over 400 Take an additional 18 Units. 3. Total time in direct patient contact = 30 min. Greater than 50% of the time was spent in counseling and/or coordination of care. 4. Self-monitoring blood glucose log sheets were given to the patient. Patient instructed to fill them out and bring to the next visit, using [employer]. 5. Answered all questions. 6. Educated patient on therapeutic lifestyle changes. 7. Patient verbalized understanding of all the above instructions. Some elements may have been copied from previous notes but have been updated where appropriate and all reflect current medical decision making from today Follow up: Return in about 3 months (around 06/28/2022). Francie Britt CNP 03/28/2022 3:42 PM documented in this encounter [facility] 01-17-2022 Miscellaneous Notes Patient would like a call all of her when her most recent lab results come in. Carolyn Eisenberg January 17, 2022 11:23 AM documented in this encounter [facility] 12-25-2021 History of Presen t illness Narrative Subjective Machelle Friedman is a 50 year old female presenting for endocrinology follow-up for thyroid disease. (She previously managed diabetes with PCP, but would like up to help also). She has previously seen Dr. Irwin of our group. Thyroid cancer: Current HPI: no neck pain, lumps, other concerns. Thyroglobulin <0.2 02/12, <0.2 06/14, neck ultrasound 11/12 at [place] without malignant pathology (report scanned into [employer]). Previous history: Diagnosed with multinodular goiter. Had obstructive symptoms and opted for total thyroidectomy. Surgery performed @ [facility] 12/26/[address] Noe Motley. 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 Margins uninvolved by invasive cancer. / lymph nodes, negative for thyroid cancer involvement. Had follow up with thyroid surgeon and a neck ultrasound 12/23/2018: ... Two distinct hypoechoic masses near the right thyroid bed. The more lateral measures approximately 1.2 x x 1.0 x 0.8 cm, the other superior mass measures approx 0.8 x 0.7 x 0.4 cm. A single hypoechoic mass is noted in the left thyroid bed measuring approx 06 x 0.6 x 0.5 cm. These nodules do not demonstrate internal doppler color flow or echogenic foci. She was referred to me for evaluation of possible thyroid cancer recurrence. Thyroid labs revealed +Thyroglobulin 4.3 ng/mL with a TSH of 7.3 I asker her to increase the Levothyroxine to 175 mcg every day with an extra full tablet one day of the week. Follow up blood work revealed TS of 0.203 and Thyroglobulin undetectable <0.2 We discussed that the persistent thyroglobulin and neck findings (hypoechoic areas) were most likely remnants of thyroid gland. I offered both observation with TSH suppression and frequent neck ultrasound and thyroglobulin levels versus remnant ablation. The patient opted for remnant ablation. Underwent remnant radioactive iodine ablation with 36.1 mCi I-131 in [facility] 06/09/2019. Tg was 1.0 on 08/27/2019 with a TSH of 0.016 and Tg Ab of 13 Last neck US was done 09/02/2019 @ [facility] (see scanned documents) with report: No definite recurrent mass and one small (7 mm on the left neck and 10 mm on the right neck) without significant increased in blood flow or calcification. Last TG level from 03/01/2020 was 0.3 with a TSH of 0.027 on 02/28/2020 (not obtained on the same day due to lab error). Hypothyroidism: Current levothyroxine dose 175 mcg 6 days per week. TSH 0.356 02/12 Diabetes: Timeline: dx type 2 diabetes ~1999 Complications: (+) retinopathy, (+) neuropathy, (-) nephropathy Course: has been on insulin for several years. Intolerant to metformin and glipizide stopped when she started insulin Current regimen Lantus 70 units QHS, Humalog at meals, Trulicity 1.5 mg weekly Review of Systems Constitutional: Negative for chills, diaphoresis, fever, malaise/fatigue and weight loss. HENT: Negative for congestion, ear discharge, ear pain, hearing loss, nosebleeds, sinus pain, sore throat and tinnitus. Eyes: Negative for blurred vision, double vision, photophobia, pain, discharge and redness. Respiratory: Negative for cough, hemoptysis, sputum production, shortness of breath, wheezing and stridor. Cardiovascular: Negative for chest pain, palpitations, orthopnea, claudication, leg swelling and PND. Gastrointestinal: Negative for abdominal pain, blood in stool, constipation, diarrhea, heartburn, melena, nausea and vomiting. Genitourinary: Negative for dysuria, flank pain, frequency, hematuria and urgency. Musculoskeletal: Negative for back pain, falls, joint pain, myalgias and neck pain. Skin: Negative for itching and rash. Neurological: Negative for dizziness, tingling, tremors, sensory change, speech change, focal weakness, seizures, loss of consciousness, weakness and headaches. Endo/Heme/Allergies: Negative for environmental allergies and polydipsia. Does not bruise/bleed easily. Psychiatric/Behavioral: Positive for depression. Negative for hallucinations, memory loss, substance abuse and suicidal ideas. The patient is not nervous/anxious and does not have insomnia. PAST MEDICAL HISTORY Diagnosis Date Asthma Depression Hyperlipidemia Hypothyroidism MAGALY (obstructive sleep apnea) Thyroid cancer (HCC) 12/26/2017 Type 2 diabetes mellitus (HCC) PAST SURGICAL HISTORY Procedure Laterality Date SECTION MULTI>2 CHOLECYSTECTOMY D AND C Diagnostic LAD INITIAL LAPAROSCOPIC FIBROID ABLATION PAST SURGICAL HISTORY OF x3 Bilateral PAST SURGICAL HISTORY OF Tendon repair and alignment PAST SURGICAL HISTORY OF Uterine surgery REMOVAL OF THYROID RHINOPLASTY TUBAL LIGATION HX FAMILY HISTORY Problem Relation Age of Onset Diabetes Mother other (Other) Mother Abnormal Heart Baet Diabetes Father Cancer Father Prostate Leukemia Father Heart Attack Father other (Other) Father Abnormal Heart Beat Multiple Sclerosis Sister Diabetes Brother Diabetes Maternal Grandmother Diabetes Paternal Grandmother Cancer Sister Lung Social History Tobacco Use Smoking status: Never Smoker Smokeless tobacco: Never Used Vaping Use Vaping Use: Never used Substance Use Topics Alcohol use: Never Drug use: Never Current Meds dulaglutide (TRULICITY) 1.5 mg/0.5 mL pen injector Inject 1.5 mL subcutaneously one time a week. vortioxetine (TRINTELLIX) 5 mg tablet Take 5 mg by mouth once daily. levothyroxine (SYNTHROID) 175 mcg tablet Take one tablet daily subQ insulin pump,gluc.mon.sys misc See Instructions, Freestyle Emmanuel CGM Sensors Pt to change sensor every 2 weeks, # 2 EA, 11 Refill(s), Pharmacy: [facility], Diabetes mellitus type 2 in obese, 165.1, cm, 07/30/19 8:13:00 EST, Height, 108.55, kg, 07/30/19 8:13:00 EST, Dosing Weight FREESTYLE EMMANUEL 14 DAY SENSOR kit LORazepam (ATIVAN) 0.5 mg Take by mouth. insulin lispro (HUMALOG KWIKPEN INSULIN) 200 unit/mL (3 mL) injection Inject subcutaneously three times daily before meals. Inject on sliding scale three times daily with meals, max daily dose of 100u insulin glargine (LANTUS SOLOSTAR U-100 INSULIN) 100 unit/mL (3 mL) Inject 70 Units subcutaneously daily at bedtime. LANTUS NAME BRAND NOT GENERIC losartan (COZAAR) 25 mg tablet Take 25 mg by mouth once daily. albuterol (PROVENTIL) 2.5 mg/3 mL nebulizer solution Inhale 2.5 mg as instructed as directed. folic acid 1 mg tablet Take 1 mg by mouth once daily. gabapentin (NEURONTIN) 300 mg capsule Take 300 mg by mouth three times daily. meloxicam (MOBIC) 15 mg tablet Take 15 mg by mouth once daily. montelukast (SINGULAIR) 10 mg tablet Take 10 mg by mouth daily at bedtime. Omeprazole 40 mg capsule Take 40 mg by mouth once daily. simvastatin (ZOCOR) 20 mg tablet Take 20 mg by mouth daily at bedtime. budesonide-formoterol (SYMBICORT) 160-4.5 mcg/actuation inhaler Inhale 2 Puffs as instructed twice daily. dulaglutide (TRULICITY) 1.5 mg/ 0.5 ml subcutaneous pen injector Inject 1.5 mg subcutaneously once each week. albuterol HFA (VENTOLIN HFA) 90 mcg/actuation inhaler Inhale 2 Puffs as instructed every 6 hours as needed. venlafaxine (EFFEXOR) 37.5 mg tablet Take 37.5 mg by mouth once daily. insulin degludec (TRESIBA FLEXTOUCH U-100) 100 unit/mL (3 mL) injection pen Tresiba FlexTouch U-100 insulin 100 unit/mL (3 mL) subcutaneous pen clonazePAM (KLONOPIN) 1 mg tablet Take 1 mg by mouth twice daily as needed. insulin glargine,hum.rec.anlog (BASAGLAR KWIKPEN U-100 INSULIN SUBCUTANEOUS) Inject 10 Units subcutaneously daily at bedtime. insulin aspart (NOVOLOG FLEXPEN U-100 INSULIN SUBCUTANEOUS) Inject subcutaneously. Inject 3 times a day ranitidine (ZANTAC) 150 mg tablet Take 150 mg by mouth twice daily. Objective BP 118/62 Pulse 78 Ht 165.1 cm (5' 5 ) Wt 118.4 kg (261 lb) SpO2 98% BMI 43.43 kg/m Physical Exam Constitutional: General: She is not in acute distress. Appearance: Normal appearance. HENT: Head: Normocephalic and atraumatic. Eyes: General: No scleral icterus. Conjunctiva/sclera: Conjunctivae normal. Pupils: Pupils are equal, round, and reactive to light. Neck: Thyroid: No thyromegaly. Trachea: No tracheal deviation. Cardiovascular: Rate and Rhythm: Normal rate and regular rhythm. Heart sounds: Normal heart sounds. Pulmonary: Effort: Pulmonary effort is normal. No respiratory distress. Breath sounds: Normal breath sounds. Musculoskeletal: General: No tenderness or deformity. Cervical back: Neck supple. Lymphadenopathy: Cervical: No cervical adenopathy. Skin: General: Skin is warm and dry. Findings: No rash. Neurological: General: No focal deficit present. Mental Status: She is alert and oriented to person, place, and time. Gait: Gait is intact. Psychiatric: Mood and Affect: Mood and affect normal. Behavior: Behavior normal. Cognition and Memory: Memory normal. Judgment: Judgment normal. Assesment / Plans: (Some elements may be copied from previous notes, which have been updated where appropriate, and all reflect current medical decision making from today.) ASSESSMENT/PLAN: 1. Papillary microcarcinoma of thyroid (HCC) - ICD9: 193, ICD10: C73 (primary diagnosis) - Clinically doing well - LEVOTHYROXINE 175 MCG TABLET - THYROID CANCER (THYROGLOBULIN) MONITOR 2. Acquired hypothyroidism - ICD9: 244.9, ICD10: E03.9 - TSH appropriately suppressed - LEVOTHYROXINE 175 MCG TABLET - TSH BLD - T4 FREE/FREE THYROX 3. Type 2 diabetes mellitus with hyperglycemia, with long-term current use of insulin ([facility]) - ICD9: 250.00, 790.29, V58.67, ICD10: E11.65, Z79.4 - Increase Trulicity to 3 mg weekly 4. Type 2 diabetes mellitus with other diabetic ophthalmic complication ([facility]) - ICD9: 250.50, ICD10: E11.39 - Continue ophtho follow-up Electronically signed by Juan Cunningham MD documented in this encounter [facility] Evaluation + Plan note No data available for this section [facility] Evaluation + Plan note Future Appointments [facility] Diagnosis Right ankle pain, unspecified chronicity [facility] Diagnosis Paresthesia of skin Disturbance of skin sensation Chronic pain of right ankle [facility] Diagnosis Type 2 diabetes mellitus with hyperglycemia, with long-term current use of insulin ([facility])- Primary Screening for diabetic retinopathy Screening for other eye conditions Acquired hypothyroidism Unspecified hypothyroidism [facility]* Diagnosis Diabetes mellitus type 2 without retinopathy ([facility])- Primary Type II or unspecified type diabetes mellitus without mention of complication, not stated as uncontrolled Screening for diabetic retinopathy Screening for other eye conditions Age-related nuclear cataract of both eyes Senile nuclear sclerosis Myopia of both eyes Myopia Regular astigmatism of both eyes Regular astigmatism Presbyopia Eye redness Redness or discharge of eye Ocular migraine Other forms of migraine, without mention of intractable migraine without mention of status migrainosus [facility]* Diagnosis Vaginal yeast infection- Primary Candidiasis of vulva and vagina [facility]* Diagnosis Type 2 diabetes mellitus with hyperglycemia, with long-term current use of insulin ([facility]) documented [facility]* Diagnosis Type 2 diabetes mellitus with hyperglycemia, with long-term current use of insulin ([facility])- Primary High risk medication use Encounter for long-term (current) use of other medications Class 3 severe obesity due to excess calories with serious comorbidity and body mass index (BMI) of 40.0 to 44.9 in adult ([facility]) Acquired hypothyroidism Unspecified hypothyroidism Papillary microcarcinoma of thyroid ([facility]) [facility] Diagnosis Type 2 diabetes mellitus with hyperglycemia, with long-term current use of insulin ([facility])- Primary High risk medication use Encounter for long-term (current) use of other medications Class 3 severe obesity due to excess calories with serious comorbidity and body mass index (BMI) of 40.0 to 44.9 in adult ([facility]) Acquired hypothyroidism Unspecified hypothyroidism [facility] Diagnosis Other abnormalities of gait and mobility- Primary [facility] Diagnosis Other abnormalities of gait and mobility- Primary [facility]* Diagnosis Type 2 diabetes mellitus with hyperglycemia, with long-term current use of insulin ([facility])- Primary [facility] Diagnosis Diabetic peripheral neuropathy associated with type 2 diabetes mellitus ([facility])- Primary Type II or unspecified type diabetes mellitus with neurological manifestations, not stated as uncontrolled Type 2 diabetes mellitus with hyperglycemia, with long-term current use of insulin ([facility]) Obesity, Class III, BMI >= 40 Morbid obesity [facility] Diagnosis Type 2 diabetes mellitus with hyperglycemia, with long-term current use of insulin ([facility])- Primary Class 3 severe obesity due to excess calories with serious comorbidity and body mass index (BMI) of 40.0 to 44.9 in adult ([facility]) High risk medication use Encounter for long-term (current) use of other medications [facility] Diagnosis Class 3 severe obesity due to excess calories with serious comorbidity and body mass index (BMI) of 40.0 to 44.9 in adult ([facility])- Primary documented in this encounter [facility]* Diagnosis Papillary microcarcinoma of thyroid ([facility])- Primary Acquired hypothyroidism Unspecified hypothyroidism Gastroesophageal reflux disease, unspecified whether esophagitis present Type 2 diabetes mellitus with hyperglycemia, with long-term current use of insulin ([facility]) documented in this encounter [facility] note* Diagnosis Type 2 diabetes mellitus with hyperglycemia, with long-term current use of insulin ([facility]) documented in this encounter [facility] note* Diagnosis Obesity, Class III, BMI >= 40- Primary Morbid obesity Anxiety Anxiety state, unspecified Chronic pain disorder Chronic pain syndrome Hyperlipidemia, unspecified hyperlipidemia type Primary hypertension Unspecified essential hypertension MAGALY on CPAP Obstructive sleep apnea (adult) (pediatric) Asthma, unspecified asthma severity, unspecified whether complicated, unspecified whether persistent Gastroesophageal reflux disease, unspecified whether esophagitis present Papillary microcarcinoma of thyroid ([facility]) Type 2 diabetes mellitus with other diabetic ophthalmic complication ([facility]) documented in this encounter [facility] note* Diagnosis Hollenhorst plaque, 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, with long-term current use of insulin ([facility]) Age-related nuclear cataract of both eyes Senile nuclear sclerosis Dry eye syndrome of both eyes Refractive error Unspecified disorder of refraction and accommodation Presbyopia documented in this encounter [facility] Discharge instructions No data available for this section [facility] Progress note No data available for this section [facility] Reason for referral (narrative)* Outpatient Procedure (Routine) - Authorized Specialty Diagnoses / Procedures Referred By Santa t Referred To [facility] Diagnoses Hollenhorst plaque, left eye Procedures US CAROTID ARTERIES [facility] DUPLEX SCAN EXTRACRANIAL ART COMPL BI STUDY Guillaume Stanley, OD [address] [place] [address] [facility] [address] [place] [address] Referral ID Status Reason Start Date Expiration Date Visits Requested Visits Authorized [id number] Authorized Auto-Generat ed Referral 3 08/07/2024 1 1 [facility] for visit Narrative* Outpatient Procedure (Routine) - Closed Specialty Diagnoses / Procedures Referred By Contac t Referred To Contact Radiology / RADIO CT SCAN Diagnoses Non-pressure chronic ulcer of right ankle with fat layer exposed Primary osteoarthritis, right ankle and foot SPOKE WITH OFFICE ORDER WILL BE FAXED CT ANKLE R WO CONTRAST L97.[address] LOWER EXTREMITY W/O CONTRAST MATERIAL CT WO MSK [address] Bladimir Beaulieu DPM [address] [place] [address] Scan [facility] [address] [place] [address] Referral ID Status Reason Start Date Expiration Date Visits Re quested Visits Authorized [id number] Closed 10/17/2022 12/16/2022 1 1 [facility] Summary Purpose Family History No Family History Records FoundNo Family History Records FoundNo Family History Records FoundNo Family History Records FoundNo Family History Records FoundNo Family History Records FoundNo Family History Records Found Advance Directives No Advanced Directives Records FoundDocuments on File Type Date Recorded Patient Immigration Paralegal Expl anation Advance Directive(s) 06/03/2019 1:06 PM Documents on File Type Date Recorded Patient Immigration Paralegal Expl anation Advance Directive(s) 06/03/2019 1:06 PM Reason for Referral Specialty Diagnoses / Procedures Referred By Contac t Referred To Contact MR IMAGING Diagnoses Right ankle pain, unspecified chronicity Procedures MRI ANKLE WO IVCON RT MRI ANY JT LOWER EXTREM W/O CONTRAST MATRL Bladimir Beaulieu DPM [address] [place] [address] Mr Imaging Referral ID Status Reason Start Date Expiration Date Visits Requested Visits Authorized [id number] Additional Clinical Info Needed Auto-Generat ed Referral 02/07/2022 03/09/2023 1 1 Specialty Diagnoses / Procedures Referred By Contac t Referred To Contact Ophthalmology Diagnoses Screening for diabetic retinopathy Procedures CONSULT TO OPHTHALMOLOGY OFFICE/OUTPATIENT [facility] 60-74 MINUTES Francie Britt, CAR PACKER.PHOTO RETOUCHER 1945 [facility] [address] [place] [address] Referral ID Status Reason Start Date Expiration Date Visits Requested Visits Authorized [id number] Authorized PCP Requested Referral 03/28/2022 03/28/2023 1 1 Specialty Diagnoses / Procedures Referred By Contac t Referred To Contact Diagnoses Type 2 diabetes mellitus with hyperglycemia, with long-term current use of insulin ([facility]) Francie Britt, CAR PACKER.PHOTO RETOUCHER 1945 [facility] [address] [place] [address] Referral ID Status Reason Start Date Expiration Date Visits Re quested Visits Authorized [id number] Closed 1 1 Specialty Diagnoses / Procedures Referred By Contac t Referred To Contact Diagnoses Type 2 diabetes mellitus with hyperglycemia, with long-term current use of insulin (HCC) Procedures CONSULT TO DIABETES EDUCATION DSME/MNT Rey Figueroa, CAR PACKER.PHOTO RETOUCHER [address] [facility] [address] [place] [address] Referral ID Status Reason Start Date Expiration Date Visits Requested Visits Authorized [id number] Ref Not Required PCP Requested Referral 02/18/2023 02/18/2024 1 1 Specialty Diagnoses / Procedures Referred By Contac t Referred To Contact Diagnoses Obesity, Class III, BMI 40-49.9 (morbid obesity) (HCC) Anxiety Chronic pain disorder Hyperlipidemia, unspecified hyperlipidemia type Primary hypertension MAGALY on CPAP Asthma, unspecified asthma severity, unspecified whether complicated, unspecified whether persistent Gastroesophageal reflux disease, unspecified whether esophagitis present Papillary microcarcinoma of thyroid (HCC) Type 2 diabetes mellitus with other diabetic ophthalmic complication (HCC) Procedures CONSULT TO BARIATRIC SURGERY Ivon Page, CAR PACKER.PHOTO RETOUCHER [address] [place] [address] Referral ID Status Reason Start Date Expiration Date V isits Requested Visits Authorized [id number] Ref Not Required 07/24/2023 09/22/2023 1 1 Medications Administered Section Active Administered Medications - up to 3 most recent administrations Medication Order MAR Action Action Date Dose Rate Site fluorescein-benoxinate 0.25-0.4 % 1 Drop (FLURESS) 1 Drop, BOTH EYES, DIRECTED, Starting on Fri05/06/22 at 1002, Until Fri05/06/22 at 2201, Administer for applanation tonometry, [facility] MED ORDERS Given 05/06/2022 10:21 AM EDT 1 Drop PHENYLephrine 2.5 % 1 Drop (AK-DILATE, SARAH-SYNEPHRINE) 1 Drop, BOTH EYES, DIRECTED, Starting on Fri05/06/22 at 1002, Until Fri05/06/22 at 2201, Administer for dilation PROTECT FROM LIGHT, [facility] MED ORDERS Given 05/06/2022 10:21 AM EDT 1 Drop tropicamide 1 % 1 Drop (MYDRIACYL) 1 Drop, BOTH EYES, DIRECTED, Starting on Fri05/06/22 at 1002, Until Fri05/06/22 at 2201, Administer for dilation, [facility] MED ORDERS Given 05/06/2022 10:21 AM EDT 1 Drop Active Administered Medications - up to 3 most recent administrations Medication Order MAR Action Action Date Dose Rate Site fluorescein-benoxinate 0.3-0.4 % 1 Drop (FLURESS) 1 Drop, BOTH EYES, DIRECTED, Starting on Fri08/08/23 at 1500, Until 08/09/23 at 0259, Administer for applanation tonometry. In the event of a Fluress shortage, administer Trudy-Fluor 1 drop into both eyes as directed for applanation tonometry, [facility] MED ORDERS Given 08/08/2023 3:00 PM EST 1 Drop PHENYLephrine 2.5 % 1 Drop (AK-DILATE, SARAH-SYNEPHRINE) 1 Drop, BOTH EYES, DIRECTED, Starting on Fri08/08/23 at 1500, Until 08/09/23 at 0259, Administer for dilation PROTECT FROM LIGHT, [facility] MED ORDERS Given 08/08/2023 3:00 PM EST 1 Drop tropicamide 1 % 1 Drop (MYDRIACYL) 1 Drop, BOTH EYES, DIRECTED, Starting on Fri08/08/23 at 1500, Until 08/09/23 at 0259, Administer for dilation, [facility] MED ORDERS Given 08/08/2023 3:00 PM EST 1 Drop Additional Source Comments INFORMATION SOURCE (unrecogn ized section and content) DATE CREATED AUTHOR AUTHOR'S ORGANIZ ATION 02/04/2021 [facility] DATE CREATED AUTHOR AUTHOR'S ORGANIZ ATION 01/13/2022 [facility] DATE CREATED AUTHOR AUTHOR'S ORGANIZ ATION 01/31/2023 [facility] DATE CREATED AUTHOR AUTHOR'S ORGANIZ ATION 03/03/2023 [facility] ([place]) DATE CREATED AUTHOR AUTHOR'S ORGANIZ ATION 08/10/2023 [facility] DATE CREATED AUTHOR AUTHOR'S ORGANIZ ATION 09/03/2023 [facility] Source Comments (unrecognize d section and content) In the event this informatio n is protected by the Federal Confidentiality of Alcohol and Drug Abuse Patient Records regulations: The Federal rules restrict any use of the information to criminally investigate or prosecute any alcohol or drug abuse patient.[facility] the event this information is protected by the Federal Confidentiality of Alcohol and Drug Abuse Patient Records regulations: The Federal rules restrict any use of the information to criminally investigate or prosecute any alcohol or drug abuse patient.[facility] the event this information is protected by the Federal Confidentiality of Alcohol and Drug Abuse Patient Records regulations: The Federal rules restrict any use of the information to criminally investigate or prosecute any alcohol or drug abuse patient.[facility] the event this information is protected by the Federal Confidentiality of Alcohol and Drug Abuse Patient Records regulations: The Federal rules restrict any use of the information to criminally investigate or prosecute any alcohol or drug abuse patient.[facility] the event this information is protected by the Federal Confidentiality of Alcohol and Drug Abuse Patient Records regulations: The Federal rules restrict any use of the information to criminally investigate or prosecute any alcohol or drug abuse patient.[facility] the event this information is protected by the Federal Confidentiality of Alcohol and Drug Abuse Patient Records regulations: The Federal rules restrict any use of the information to criminally investigate or prosecute any alcohol or drug abuse patient.[facility] Center[facility] the event this information is protected by the Federal Confidentiality of Alcohol and Drug Abuse Patient Records regulations: The Federal rules restrict any use of the information to criminally investigate or prosecute any alcohol or drug abuse patient.[facility] the event this information is protected by the Federal Confidentiality of Alcohol and Drug Abuse Patient Records regulations: The Federal rules restrict any use of the information to criminally investigate or prosecute any alcohol or drug abuse patient.[facility] the event this information is protected by the Federal Confidentiality of Alcohol and Drug Abuse Patient Records regulations: The Federal rules restrict any use of the information to criminally investigate or prosecute any alcohol or drug abuse patient.[facility] Center[facility] the event this information is protected by the Federal Confidentiality of Alcohol and Drug Abuse Patient Records regulations: The Federal rules restrict any use of the information to criminally investigate or prosecute any alcohol or drug abuse patient.[facility] Center[facility] the event this information is protected by the Federal Confidentiality of Alcohol and Drug Abuse Patient Records regulations: The Federal rules restrict any use of the information to criminally investigate or prosecute any alcohol or drug abuse patient.[facility] Center[facility] the event this information is protected by the Federal Confidentiality of Alcohol and Drug Abuse Patient Records regulations: The Federal rules restrict any use of the information to criminally investigate or prosecute any alcohol or drug abuse patient.[facility] CenterIn the event this information is protected by the Federal Confidentiality of Alcohol and Drug Abuse Patient Records regulations: The Federal rules restrict any use of the information to criminally investigate or prosecute any alcohol or drug abuse patient.[facility] Center[facility] the event this information is protected by the Federal Confidentiality of Alcohol and Drug Abuse Patient Records regulations: The Federal rules restrict any use of the information to criminally investigate or prosecute any alcohol or drug abuse patient.[facility] Center[facility] the event this information is protected by the Federal Confidentiality of Alcohol and Drug Abuse Patient Records regulations: The Federal rules restrict any use of the information to criminally investigate or prosecute any alcohol or drug abuse patient.[facility] Center[facility] the event this information is protected by the Federal Confidentiality of Alcohol and Drug Abuse Patient Records regulations: The Federal rules restrict any use of the information to criminally investigate or prosecute any alcohol or drug abuse patient.[facility] CenterIn the event this information is protected by the Federal Confidentiality of Alcohol and Drug Abuse Patient Records regulations: The Federal rules restrict any use of the information to criminally investigate or prosecute any alcohol or drug abuse patient.[facility] CenterIn the event this information is protected by the Federal Confidentiality of Alcohol and Drug Abuse Patient Records regulations: The Federal rules restrict any use of the information to criminally investigate or prosecute any alcohol or drug abuse patient.[facility] CenterIn the event this information is protected by the Federal Confidentiality of Alcohol and Drug Abuse Patient Records regulations: The Federal rules restrict any use of the information to criminally investigate or prosecute any alcohol or drug abuse patient.[facility] CenterIn the event this information is protected by the Federal Confidentiality of Alcohol and Drug Abuse Patient Records regulations: The Federal rules restrict any use of the information to criminally investigate or prosecute any alcohol or drug abuse patient.[facility] CenterIn the event this information is protected by the Federal Confidentiality of Alcohol and Drug Abuse Patient Records regulations: The Federal rules restrict any use of the information to criminally investigate or prosecute any alcohol or drug abuse patient.[facility] CenterIn the event this information is protected by the Federal Confidentiality of Alcohol and Drug Abuse Patient Records regulations: The Federal rules restrict any use of the information to criminally investigate or prosecute any alcohol or drug abuse patient.[facility] CenterIn the event this information is protected by the Federal Confidentiality of Alcohol and Drug Abuse Patient Records regulations: The Federal rules restrict any use of the information to criminally investigate or prosecute any alcohol or drug abuse patient.[facility] CenterIn the event this information is protected by the Federal Confidentiality of Alcohol and Drug Abuse Patient Records regulations: The Federal rules restrict any use of the information to criminally investigate or prosecute any alcohol or drug abuse patient.[facility] CenterIn the event this information is protected by the Federal Confidentiality of Alcohol and Drug Abuse Patient Records regulations: The Federal rules restrict any use of the information to criminally investigate or prosecute any alcohol or drug abuse patient.[facility] CenterIn the event this information is protected by the Federal Confidentiality of Alcohol and Drug Abuse Patient Records regulations: The Federal rules restrict any use of the information to criminally investigate or prosecute any alcohol or drug abuse patient.[facility] CenterIn the event this information is protected by the Federal Confidentiality of Alcohol and Drug Abuse Patient Records regulations: The Federal rules restrict any use of the information to criminally investigate or prosecute any alcohol or drug abuse patient.[facility] CenterIn the event this information is protected by the Federal Confidentiality of Alcohol and Drug Abuse Patient Records regulations: The Federal rules restrict any use of the information to criminally investigate or prosecute any alcohol or drug abuse patient.[facility] CenterIn the event this information is protected by the Federal Confidentiality of Alcohol and Drug Abuse Patient Records regulations: The Federal rules restrict any use of the information to criminally investigate or prosecute any alcohol or drug abuse patient.[facility] CenterIn the event this information is protected by the Federal Confidentiality of Alcohol and Drug Abuse Patient Records regulations: The Federal rules restrict any use of the information to criminally investigate or prosecute any alcohol or drug abuse patient.[facility] the event this information is protected by the Federal Confidentiality of Alcohol and Drug Abuse Patient Records regulations: The Federal rules restrict any use of the information to criminally investigate or prosecute any alcohol or drug abuse patient.[facility] CenterIn the event this information is protected by the Federal Confidentiality of Alcohol and Drug Abuse Patient Records regulations: The Federal rules restrict any use of the information to criminally investigate or prosecute any alcohol or drug abuse patient.[facility] CenterIn the event this information is protected by the Federal Confidentiality of Alcohol and Drug Abuse Patient Records regulations: The Federal rules restrict any use of the information to criminally investigate or prosecute any alcohol or drug abuse patient.[facility] CenterIn the event this information is protected by the Federal Confidentiality of Alcohol and Drug Abuse Patient Records regulations: The Federal rules restrict any use of the information to criminally investigate or prosecute any alcohol or drug abuse patient.[facility] CenterIn the event this information is protected by the Federal Confidentiality of Alcohol and Drug Abuse Patient Records regulations: The Federal rules restrict any use of the information to criminally investigate or prosecute any alcohol or drug abuse patient.[facility] Care Teams (unrecognized sec tion and content) Car Cleaning Supervisor Relationship Specialty Start Date End Date Meaghan Doan MD [address] [place] [address] PCP - General Family Practice 02/28/20 Car Cleaning Supervisor Relationship Specialty Start Date End Date Meaghan Doan MD [address] [place] [address] PCP - General Family Practice 02/28/20 Car Cleaning Supervisor Relationship Specialty Start Date End Date Meaghan Doan MD [address] [place] [address] PCP - General Family Practice 02/28/20 Car Cleaning Supervisor Relationship Specialty Start Date End Date Meaghan Doan MD [address] [place] [address] PCP - General Family Practice 02/28/20 Car Cleaning Supervisor Relationship Specialty Start Date End Date Meaghan Doan MD [address] [place], [place] [address] [phone] PCP - General Family Practice 02/28/20 Car Cleaning Supervisor Relationship Specialty Start Date End Date Meaghan Doan MD [address] [place], [place] [address] [phone] PCP - General Family Practice 02/28/20 Car Cleaning Supervisor Relationship Specialty Start Date End Date Meaghan Doan MD [address] [place] [address] PCP - General Family Practice 02/28/20 Car Cleaning Supervisor Relationship Specialty Start Date End Date Meaghan Doan MD [address] [place], [place] [address] [phone] PCP - General Family Practice 02/28/20 Car Cleaning Supervisor Relationship Specialty Start Date End Date Francoise Scott[address] [place], [place] [address] PCP - General Family Practice 05/06/22 Car Cleaning Supervisor Relationship Specialty Start Date End Date Francoise Scott[address] [place], [place] [id number] PCP - General Family Practice 05/06/22 Car Cleaning Supervisor Relationship Specialty Start Date End Date Francoise Scott [address] [place], [place] [address] PCP - General Family Medicine 05/06/22 Car Cleaning Supervisor Relationship Specialty Start Date End Date Francoise Scott [address] [place], [place] [address] PCP - General Family Medicine 05/06/22 Car Cleaning Supervisor Relationship Specialty Start Date End Date AjithgyFrancoise mca HoraceHalima [address] [place], [place] [address] PCP - General Family Medicine 05/06/22 Car Cleaning Supervisor Relationship Specialty Start Date End Date Francoise Scotta Horace[address] [place], [place] [address] PCP - General Family Medicine 05/06/22 Car Cleaning Supervisor Relationship Specialty Start Date End Date Francoise Scotta Horace[address] [facility] [place] [id number] PCP - General Family Medicine 05/06/22 Car Cleaning Supervisor Relationship Specialty Start Date End Date Francoise Scotta Jana [address] [facility] [place] [phone] PCP - General Family Medicine 05/06/22 Car Cleaning Supervisor Relationship Specialty Start Date End Date Francoise Scotta J[address] [facility] [place] [phone] PCP - General Family Medicine 05/06/22 Car Cleaning Supervisor Relationship Specialty Start Date End Date Francoise Scotta J[address] [facility] [place] [phone] PCP - General Family Medicine 05/06/22 Car Cleaning Supervisor Relationship Specialty Start Date End Date Francoise Scotta Horace[address] [facility] [place] [phone] PCP - General Family Medicine 05/06/22 Car Cleaning Supervisor Relationship Specialty Start Date End Date Francoise Scott Ag Horace[address] [facility] [place] [phone] PCP - General Family Medicine 05/06/22 Car Cleaning Supervisor Relationship Specialty Start Date End Date Francoise Scott [address] [facility] [place] [address] PCP - General Family Medicine 05/06/22 Car Cleaning Supervisor Relationship Specialty Start Date End Date Francoise Scott [address] [facility] [place] [id number] PCP - General Family Medicine 05/06/22 Car Cleaning Supervisor Relationship Specialty Start Date End Date Francoise Scott [address] [facility] [place] [id number] PCP - General Family Medicine 05/06/22 Car Cleaning Supervisor Relationship Specialty Start Date End Date Francoise Scott [address] [facility] [place] [id number] PCP - General Family Medicine 05/06/22 Car Cleaning Supervisor Relationship Specialty Start Date End Date Francoise Scott MD [address] [facility] [place] [phone] PCP - General Family Medicine 05/06/22 Car Cleaning Supervisor Relationship Specialty Start Date End Date Francoise Scott MD [address] [facility] [place] [phone] PCP - General Family Medicine 05/06/22 Car Cleaning Supervisor Relationship Specialty Start Date End Date Francoise Scott MD [address] [place] [address] PCP - General Family Medicine 05/06/22 Car Cleaning Supervisor Relationship Specialty Start Date End Date Francoise Scott MD [address] [place], [place] [id number] PCP - General Family Medicine 05/06/22 Car Cleaning Supervisor Relationship Specialty Start Date End Date Francoise Scott MD [address] [facility] [address] [place], [place] [id number] PCP - General Family Medicine 05/06/22 Reason for Visit (unrecogniz ed section and content) Reason Comments Hypothyroidism Papillary Microcarcinoma Reason Comments Numbness Ankle Pain Reason Comments Diabetes Reason Comments Referral Request Reason Comments Diabetes PROCESS PUMPER Exam Specialty Diagnoses / Procedures Referred By Contac t Referred To Contact Ophthalmology Diagnoses Screening for diabetic retinopathy Procedures CONSULT TO OPHTHALMOLOGY OFFICE/OUTPATIENT [facility] 60-74 MINUTES Francie Britt, CAR PACKER.PHOTO RETOUCHER 1946 [facility] [address] [place] [address] Referral ID Status Reason Start Date Expiration Date V isits Requested Visits Authorized [id number] Closed PCP Requested Referral 03/28/2022 03/28/2023 1 1 Reason Comments Diabetes Reason Comments Patient Question Omnipod training Reason Comments Physical Therapy Reason Comments Appointment Reason Comments Appointment Patient Question Balwinder appointment - s ome thyroid questions Reason Comments Initial Visit / RD Diab Educ Specialty Diagnoses / Procedures Referred By Contac t Referred To Contact Diagnoses Type 2 diabetes mellitus with hyperglycemia, with long-term current use of insulin (HCC) Procedures CONSULT TO DIABETES EDUCATION DSME/MNT Rey Figueroa, CAR PACKER.PHOTO RETOUCHER [address] [place] [address] Referral ID Status Reason Start Date Expiration Date Visits Requested Visits Authorized [id number] Ref Not Required PCP Requested Referral 02/18/2023 02/18/2024 1 1 Reason Comments Orders Results faxed over Reason Comments Consult Reason Comments Internal Referrals/resources PCP Portal Referral Calls Reason Comments Thyroid Problem Reason Comments Refill Request Ozempic Reason Comments New Patient Reason Comments Diabetes Care Team (unrecognized sect ion and content) Care Team Personnel Name: TOM RODRIGUEZ DO Member Role: Cook Station Address: Address: [address] [place] [address]- Name: BLADIMIR BEAULIEU DPAndrew Position: P3 Physician - Surgery Med Service: Active Provider Member Role: Rear Admiral Address: Address: [facility] [address] [place] [address]- [place] Name: RAUL EVANS Member Role: Primary Care Physician Address: Address: [address] [place] [address]- Name: TIMOTHY HARRELL MD Member Role: Lead Generation Specialist Address: Address: [address] [place] [phone]- Name: DIANN YO MD Member Role: Candy Mixer Address: Address: [address] [address]- Care Team Related Persons Name: WILLIAMS FRIEDMAN Address: Home [address] [place] [phone] Name: YOKASTA FRIEDMAN Address: Home [address] [place] [phone] Care Team Personnel Name: TOM RODRIGUEZ DO Member Role: Cook Station Address: Address: [address] [place] [address]- [place] Name: BLADIMIR BEAULIEU DPM Position: P3 Physician - Surgery Member Role: Rear Admiral Address: Address: [facility] [address] [place] [address]- [place] Name: RAUL EVANS Member Role: Primary Care Physician Address: Address: [address] [place] [address]- Name: TIMOTHY HARRELL MD Member Role: Lead Generation Specialist Address: Address: [facility] [address] [place] [address]- [place] Name: DIANN YO MD Member Role: Candy Mixer Address: Address: 1945 [facility] [address] [place], [place] [address] Care Team Related Persons Name: WILLIAMS FRIEDMAN Address: Home [address] [place] [address] Name: YOKASTA FRIEDMAN Address: Home [address] [place] [phone] Care Team Personnel Name: TOM RODRIGUEZ DO Member Role: Cook Station Address: Address: [address] [address]- Name: BLADIMIR BEAULIEU DPAndrew Position: P3 Physician - Surgery Member Role: Rear Admiral Address: Address: [facility] [address] [address] [place] [address]- [place] Name: RAUL EVANS APRN-CLOTH MERCERIZER BACK TENDER Member Role: Primary Care Physician Address: Address: [address] [place] [address]- [place] Name: TIMOTHY HARRELL MD Member Role: Lead Generation Specialist Address: Address: [address] [facility] [address] [place] [address]- Name: DIANN YO MD Member Role: Candy Mixer Address: Address: [address] [address]- Care Team Related Persons Name: WILLIAMS FRIEDMAN Address: Home [address] [place] [phone] Name: YOKASTA FRIEDMAN Address: Home [address] [place] [phone] FOR RECORDS PERTAINING TO PATIENTS WHO ARE OR HAVE BEEN ENROLLED IN A CHEMICAL DEPENDENCY/SUBSTANCEABUSE PROGRAM, SOME INFORMATION MAY BE OMITTED. This clinical summary was aggregated from multiple sources. Caution should be exercised in using it in the provision of clinical care. This summary normalizes information from multiple sources, and as a consequence, information in this document may materially change the coding, format and clinical context of patient data. In addition, data may be omitted in some cases. CLINICAL DECISIONS SHOULD BE BASED ON THE PRIMARY CLINICAL RECORDS. [employer] provides no warranty or guarantee of the accuracy or completeness of information in this document.
--- NOTE | 2023-09-12 07:28 | WT_ITS ---
PSN 6 Minute Walk Test 6 Minute Walk Test 6 Minute Walk Test: 6 Minute Walk Test PSN:6-Minute Walk Test Start: 09/11/23 14:17 Freq: Status: Active Protocol: RESP.6MINW Document 09/11/23 14:00 [facility] (Rec: 09/11/23 14:20 [facility] Desktop) 6 Minute Walk Test Date Performed 09/11/23 Time Performed 14:00 Height 5 ft 4 in Weight: 270 lb Weight in Pounds 270.[address]: Jeanna Assistive device used: None Pre-test Oxygen Delivery Method Room Air Pulse Ox 97 Pulse Rate (60-100) 105 H Dyspnea Jazmyn Scale (0-10) 0.5 Exertion Jazmyn Scale (6-20) 6 1st minute Oxygen Delivery Method Room Air Pulse Ox 95 Pulse Rate (60-100) 122 H 2nd minute Oxygen Delivery Method Room Air Pulse Ox 97 Pulse Rate (60-100) 125 H 3rd minute Oxygen Delivery Method Room Air Pulse Ox 95 Pulse Rate (60-100) 126 H 4th minute Oxygen Delivery Method Nasal Cannula Pulse Rate (60-100) 94 Dyspnea Jazmyn Scale (0-10) 129 5th minute Oxygen Delivery Method Room Air Pulse Ox 95 Pulse Rate (60-100) 131 H 6th minute Oxygen Delivery Method Room Air Pulse Ox 96 Pulse Rate (60-100) 131 H Dyspnea Jazmyn Scale (0-10) 3 Exertion Jazmny Scale (6-20) 13 Reported Symptoms Increased Work of Breathing Post-test Oxygen Delivery Method Airvo Pulse Ox 97 Pulse Rate (60-100) 112 H Full Laps Walked 15 Partial Lap, Number of Tiles Walked 8 Total Distance Walked (ft) 893 Interpretation Interpretation: The patient ambulated 893 feet over the course of 6 minutes beginning on room air without assistive devices. Pretesting oxygen saturation was noted to be 97% on room air. With ambulation, the adelina oxygen saturation was 94%. There was no significant exertional oxygen desaturation. Recommendations Recommendations: There is no indication for the use of supplemental oxygen at this time.
== END | disposition home or self-care (01) ==
LOC: PSN 14:01
PROVIDERS: Referring Provider Nurse Practitioner Acute Care; Visit Provider Nurse Practitioner Acute Care
DX: R06.00 Dyspnea, unspecified (principal)
CPT/HCPCS: 94618